=== PATIENT | female | born 1940 | race Caucasian/White ===

== ENCOUNTER 2020-01-24 00:58 | Outpatient (CLI) | payer MEDICARE, BC, SELFPAY ==
[2020-01-24 19:20] LABS: SARS-CoV-2 RNA PCR Negative
== END 2020-01-24 00:59 | disposition home or self-care (01) ==
LOC: ANHCOVIDDT 00:59
PROVIDERS: PCP Family Medicine Adolescent Medicine; Visit Provider Internal Medicine Gastroenterology
DX: Z01.812 Encounter for preprocedural laboratory examination (principal); Z20.828 Contact with and (suspected) exposure to other viral communicable diseases
CPT/HCPCS: 87635; C9803; U0003

== ENCOUNTER 2020-01-26 00:56 | Day surgery (SDC) | payer MEDICARE, BC, SELFPAY ==
[2020-01-17 09:58] VITALS: BMI 19.5
--- NOTE | 2020-01-25 15:26 | WPDANESEPP ---
Anes - Eval Pre Procedure Procedure: Operation Date: 01/26/20 08:30 Proposed Procedures p Screening Colonoscopy - Rishi Murray MD Date/Time: 01/25/20 15:26 Pre Op Diagnosis: family hx colon CA Patient Data Age: 79 Gender: F Height: 1.65 m Weight: 53.1 kg Allergies Allergy/AdvReac Type Severity Reaction Status Date / Time Penicillins Allergy Unknown Itching Verified 01/17/20 09:57 Patient hx anesthesia problems: none Family hx anesthesia problems: none PMFSH Past Medical History Medical History (Updated 01/25/20 @ 15:28 by Tamara Jacinto CRNA) Bowel obstruction Fusion of lumbar spine HLD (hyperlipidemia) HTN (hypertension) Hypothyroid Osteoarthritis Surgical History Surgical History (Updated 01/25/20 @ 15:28 by Tamara Jacinto CRNA) H/O cataract removal with insertion of prosthetic lens History of hysterectomy Hx of cholecystectomy Social History Social History Smoking status: Never smoker Alcohol intake: current Substance use: never Substance use type: does not use Gender identity (if verbalized by the patient): Female Spiritual care concerns: No Exam Day of Procedure 01/25/20 15:26
--- NOTE | 2020-01-26 07:58 | P.PNAN_ITS ---
Anes - Eval Final PreProcedure Day of Procedure 01/26/20 07:58 Patient weight: normal Heart: regular rate and rhythm Lungs: clear to auscultation and normal air movement Airway: Mallampati scale class II Neurological: alert and oriented Last oral intake: >/= 8 hours ASA classification: II Emergent: no Anesthetic plan: proceed Anesthesia type and monitoring: general GIVS Informed Consent: The patient's anesthetic plan and its attendant risks and b enefits were discussed with the patient/family/POA. Questions were solicited and answers provided to the satisfaction of the patient/family/POA.
[2020-01-26 07:59] VITALS: BP 126/73; PULSE 83; RESP 16; TEMP 36.6; O2SAT 100; BMI 19.1
[2020-01-26] MEDS: LACTATED RINGERS 1,000 ML 150 ML IV CONT (08:15)
--- NOTE | 2020-01-26 08:28 | SUR.PREOP ---
AFTER VANCOMYCIN STARTED AT 250 ML/HR LEFT FOREARM IV INFILTRATED. IV RESTARTED IN LEFT AC WITH 20G. WARM COMPRESS TO LFA.
--- NOTE | 2020-01-26 08:51 | WPDGICN ---
Assessment and Plan Assessment and plan (1) Family history of malignant neoplasm of colon in first degree relative diagnosed when younger than 60 years of age: Code(s): Z80.0 - Family history of malignant neoplasm of digestive organs Status: Acute GI Consult Note Consult date/time: 01/26/20 08:51 HPI: Anita Wallis is a 79 year old female Seen in evaluation at the request of Dr. Luciano Lopez. Patient presents for screening colonoscopy. Her current weight appetite bowel movements are normal. She denies abdominal pain. She has had no bleeding. Her weight has remained stable. Family history is significant that her son had colon cancer. Recent medical history is significant for right shoulder repair.\ Patient is a distant history of colon surgery for a bowel obstruction secondary to adhesions. Review of Systems Review of Systems: All systems reviewed & are unremarkable except as noted in HPI and below PMFSH Past Medical History Medical History Bowel obstruction Fusion of lumbar spine HLD (hyperlipidemia) HTN (hypertension) Hypothyroid Osteoarthritis Surgical History Surgical History H/O cataract removal with insertion of prosthetic lens History of hysterectomy Hx of cholecystectomy Social History Social History Smoking status: Never smoker Alcohol intake: current Alcohol use details: maybe a drink every couple of weeks Substance use: never Substance use type: does not use Living arrangements: alone Gender identity (if verbalized by the patient): Female Spiritual care concerns: No Meds Home Medications and Allergies Allergies Allergy/AdvReac Type Severity Reaction Status Date / Time Penicillins Allergy Unknown Itching Verified 01/26/20 07:58 Vital Signs Vital Signs - 24 hr 01/26/20 07:59 Temperature 97.8 F Pulse Rate 83 Respiratory Rate 16 Blood Pressure 126/73 Pulse Oximetry 100 Exam Narrative: Exam Narrative: Physical exam reveals patient to be alert. Vital signs stable. HEENT exam unremarkable. Lungs are clear to auscultation and percussion. Heart is without murmur or extra sounds. Abdominal exam bowel sounds are present soft nontender with no organomegaly. Digital external rectal exam is normal.
[2020-01-26 08:54] VITALS: BP 111/55; PULSE 80; RESP 17; O2SAT 99
[2020-01-26 09:04] VITALS: BP 123/63; PULSE 79; RESP 17; O2SAT 100
[2020-01-26 09:14] VITALS: BP 124/71; PULSE 66; RESP 17; O2SAT 100
== END 2020-01-26 09:32 | disposition home or self-care (01) ==
PROVIDERS: PCP Family Medicine Adolescent Medicine; Visit Provider Internal Medicine Gastroenterology
PROC: 0DJD8ZZ Inspection of Lower Intestinal Tract, Via Natural or Artificial Opening Endoscopic (ICD-10-PCS; CPT 45378; principal; 2020-01-26 08:30)
DX: Z12.11 Encounter for screening for malignant neoplasm of colon (principal); Z80.0 Family history of malignant neoplasm of digestive organs; K63.89 Other specified diseases of intestine; K57.30 Diverticulosis of large intestine without perforation or abscess without bleeding; K64.8 Other hemorrhoids; I10 Essential (primary) hypertension; E78.5 Hyperlipidemia, unspecified; E03.9 Hypothyroidism, unspecified
CPT/HCPCS: G0105; J2704; J7120

== ENCOUNTER → 2020-04-01 12:15 | Outpatient (CLI) | payer MEDICARE, BC, SELFPAY ==
--- NOTE | ~2020-04-01 | MM_ITS ---
EXAMINATION: MM screening [facility] BI w charlene HISTORY: Screening mammogram TECHNIQUE: Craniocaudal and mediolateral oblique 3-D tomosynthesis images were obtained and synthetic 2-D images were generated. CAD analysis was submitted and interpreted. COMPARISON: 09/08/2018, 08/31/2017, 06/26/2016 BREAST PARENCHYMAL COMPOSITION: There are scattered areas of fibroglandular density. FINDINGS: There is no evidence of suspicious mass, calcification, or architectural distortion to sugg est malignancy in either breast. There has been no suspicious interval change. IMPRESSION: 1. No mammographic evidence of malignancy. 2. Recommend routine screening mammography while the patient remains in good health. BI-RADS Category 1: Negative Reviewed, dictated and finalized at location A. OPERATIONS IMPRESSION: 1. No mammographic evidence of malignancy. 2. Recommend routine screening mammography while the patient remains in good he alth. BI-RADS Category 1: Negative
== END ==
PROVIDERS: PCP Family Medicine Adolescent Medicine; Visit Provider Obstetrics & Gynecology Gynecology
DX: Z12.31 Encounter for screening mammogram for malignant neoplasm of breast (principal)
CPT/HCPCS: 77063; 77067

== ENCOUNTER → 2021-02-07 10:49 | Outpatient (CLI) | payer MEDICARE, BC, SELFPAY ==
--- NOTE | ~2021-02-07 | DEXA_ITS ---
Bone Density Report Name: Anita Wallis Age: 80 Sex: Female Ethnicity: White Date of : 1940 Indication: postmenopausal; screening for osteoporosis; height loss; hysterectomy; Referring Provider: SHREYAS TOURE Study: Bone densitometry was performed. Exam Date: February 07, 2021 Accession number: [id number] Bone Density: Region BMD T-score Z-score Classification AP Spine (L3, L4) 1.210 1.0 3.9 Normal Femoral Neck (Left) 0.989 1.3 3.7 Normal Total Hip (Left) 0.860 -0.7 1.5 Normal Femoral Neck (Right) 0.946 0.9 3.3 Normal Total Hip (Right) 0.800 -1.2 1.0 Osteopenia Total Hip Mean 0.830 -1.0 1.3 Normal World Health Organization criteria for BMD impression classify patients as: Normal (T-score at or above -1.0), Osteopenia (T-score between -1.0 and -2.5), or Osteoporosis (T-score at or below -2.5). 10-year Fracture Risk(1): Major Osteoporotic Fracture 6.1% Hip Fracture 0.7% Reported Risk Factors: [place] (), Neck BMD=0.946, BMI=21.0 (1) FRAX(R) Version 3.08. Fracture probability calculated for an untreated patient. Fracture probability may be lower if the patient has received treatment. Previous Exams: Region Exam Age BMD T-score BMD Change BMD Change Date g/cm2 vs Baseline vs Previous AP Spine(L3, L4) 02/07/2021 80 1.210 1.0 -0.167* -0.167* 02/03/2019 78 1.378 2.5 Total Hip(Left) 02/07/2021 80 0.860 -0.7 -0.026 -0.026 02/03/2019 78 0.887 -0.5 Total Hip(Right) 02/07/2021 80 0.800 -1.2 -0.024 -0.024 02/03/2019 78 0.824 -1.0 *Denotes significance at 95% confidence level, LSC for AP Spine = 0.022 g/cm2, LSC for Total Hip = 0.027 g/cm2 Clinical Information Provided by Patient: Has used the following medications: Vitamin D, Calcium Has the following medical conditions: Hysterectomy Patient maximum height was 69 Menopause Age: 34 No regular weight bearing exercise Drinks caffeinated beverages Onset of menses at age 9 Number of children 5 Impression: The patient has low bone mass, based on the Right Total Hip T-score. The patient has an estimated ten-year risk of hip fracture of 0.7% and an estimated ten-year risk of major fracture of 6.1%, based on the WHO FRAX algorithm. The BMD for the AP Spine(L3, L4) decreased, changing by -0.167 since the last DXA exam. Discussion: BONE DENSITY IS LOW AT ONE OR MORE SKELETAL SITES. This ariana
== END ==
PROVIDERS: PCP Family Medicine Adolescent Medicine; Visit Provider Obstetrics & Gynecology Gynecology
DX: Z78.0 Asymptomatic menopausal state (principal); M85.851 Other specified disorders of bone density and structure, right thigh
CPT/HCPCS: 77080

== ENCOUNTER → 2021-05-14 14:04 | Outpatient (CLI) | payer MEDICARE, BC, SELFPAY ==
--- NOTE | ~2021-05-14 | MM_ITS ---
EXAMINATION: MM screening [facility] BI w charlene HISTORY: Screening TECHNIQUE: Craniocaudal and mediolateral oblique 3-D tomosynthesis images were obtained and synthetic 2-D images were generated. CAD analysis was submitted and interpreted. COMPARISON: Comparison to multiple prior studies sequentially, with oldest reviewed study dated 06/07. BREAST PARENCHYMAL COMPOSITION: There are scattered areas of fibroglandular density. FINDINGS: There is no evidence of suspicious mass, calcification, or architectural distortion to sugg est malignancy in either breast. There has been no suspicious interval change. IMPRESSION: 1. No mammographic evidence of malignancy. 2. Recommend routine screening mammography in one year. BI-RADS Category 1: Negative Reviewed, dictated and finalized at location A. 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
== END ==
PROVIDERS: PCP Family Medicine Adolescent Medicine; Visit Provider Obstetrics & Gynecology Gynecology
DX: Z12.31 Encounter for screening mammogram for malignant neoplasm of breast (principal)
CPT/HCPCS: 77063; 77067

== ENCOUNTER → 2021-09-16 10:06 | Outpatient (CLI) | payer MEDICARE, BC, SELFPAY ==
--- NOTE | ~2021-09-16 | XR_ITS ---
EXAMINATION: XR hip RT min 2V DATE: 09/16/2021 10:34 INDICATION: Right hip pain. TECHNIQUE: 2 views of right hip were obtained. COMPARISON: Right hip radiographs 06/01/2015 FINDINGS: Bone alignment is normal. No fracture. There is moderate right hip osteoarthritis. There is severe osteoarthritis of right sacroiliac joint. There is severe lumbar spondylosis. There is rare/endangered species specialist ior fusion in lower lumbar spine. IMPRESSION: 1. Polyarticular osteoarthritis. Reviewed, dictated and finalized at location B.
== END ==
PROVIDERS: PCP Family Medicine Adolescent Medicine; Visit Provider Physician Assistant
DX: M25.551 Pain in right hip (principal); M16.11 Unilateral primary osteoarthritis, right hip
CPT/HCPCS: 73502

== ENCOUNTER 2022-03-24 18:58 | Observation (INO) | payer MEDICARE, BC, SELFPAY ==
[2022-03-24] VITALS (11 sets, daily range): BP systolic 109–150; BP diastolic 50–77; PULSE 64–90; RESP 14–19; TEMP 37.6; O2SAT 98–100
--- NOTE | ~2022-03-24 | CT_ITS ---
EXAMINATION: CT brain wo con DATE: 03/24/2022 20:11 INDICATION: minor head injury . TECHNIQUE: Computed tomography (CT) of the head was performed without intravenous contrast. The mA wa s adjusted according to patient size. Iterative reconstruction technique was employed. The dose-lengt h product was 605.33 mGy-cm. COMPARISON: None FINDINGS: Motion limited examination. No acute intracranial hemorrhage or extra-axial fluid collection. No hydrocephalus, mass, or herniation. No acute ischemic infarct. Unremarkable dural venous sinus attenuation. No acute osseous abnormality. The aerated spaces are clear. Mild atrophy and chronic white matter change. Bilateral basal ganglia calcification Atherosclerotic i ntracranial calcification. Bilateral lens replacements. IMPRESSION: Motion limited examination. Within that constraint, no definite acute intracranial process. Reviewed, dictated and finalized at location K. CUTTER IMPRESSION: Motion limited examination. Within that constraint, no definite acute intracran ial process.
--- NOTE | ~2022-03-24 | MR_ITS ---
EXAMINATION: MR brain/brain stem wo/w con DATE: 03/25/2022 08:00 INDICATION: Altered mental status. TECHNIQUE: Magnetic resonance imaging (MRI) of the brain and brainstem was performed without and with 10 mL MultiHance intravenous contrast. COMPARISON: Brain MRI 09/19/2012, head CT 03/24/2022 FINDINGS: There is a left temporal occipital subdural hematoma with maximum thickness of 2 mm. There is no acute ischemic infarct or abnormal mass lesion. There are foci of nonspecific increased T2-weig hted signal intensity in the cerebral white matter, which is within normal limits for the patient's a ge. The ventricles are normal in size. There are likely changes of ocular lens replacement surgeries. The paranasal sinuses are clear. The mastoid air cells are normal. IMPRESSION: 1. Left temporal occipital subdural hematoma with maximum thickness of 2 mm. Reviewed, dictated and finalized at location A. 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
--- NOTE | ~2022-03-24 | XR_ITS ---
EXAM: XR finger 2nd LT min 2V DATE: 03/24/2022 19:53 HISTORY: trauma, REDNESS/ SWELLING TO DIP OF 2ND DIGIT . COMPARISON: None available. FINDINGS: Decreased mineralization. No fracture or dislocation. No lytic or blastic lesion. Severe a rthritic changes, likely secondary to erosive osteoarthritis. No periosteal change. Soft tissues with in normal limits. IMPRESSION: No acute osseous finding in the left second digit. Reviewed, dictated and finalized at location K. 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
--- NOTE | 2022-03-24 19:25 | ECG_ITS ---
Measurements Intervals Gordon Rate: 71 P: 59 WV: 161 QRS: -46 QRSD: 98 T: 49 QT: 430 QTc: 470 Interpretive Statements SINUS RHYTHM POSSIBLE LEFT ATRIAL ENLARGEMENT INCOMPLETE RIGHT BUNDLE BRANCH BLOCK LEFT ANTERIOR FASCICULAR BLOCK BASELINE ARTIFACT- I, II, V4 ABNORMAL ECG NO PREVIOUS ECG AVAILABLE FOR COMPARISON Electronically Signed On 03-25-2022 6:36:23 CELLOPHANE WORKER by Tyron Medel D.O.
[2022-03-24 19:32] LABS: Glucose Point of Care 104 mg/dl (65-105)
[2022-03-24 19:35] LABS: Basophils Percent Auto 0.3 % (0.2-1.2); Hematocrit 37.8 % (37.0-47.0); Hemoglobin 12.2 g/dL (12.0-15.0); Immature Granulocyte Absolute 0.02 K/mm3 (0.00-0.031); Immature Granulocyte Percent A 0.3 % (0-0.5); Lymphocytes Absolute Auto 0.53 K/mm3 (0.9-3.2); Lymphocytes Percent Auto 7.1 % (18.3-44.2); Mean Corpuscular HGB Conc 32.3 g/dl (32-36); Mean Corpuscular Volume 93.1 fl (80-100); Mean Platelet Volume 9.2 fl (7.4-10.4); Monocytes Absolute Auto 0.8 K/mm3 (0.1-0.6); Monocytes Percent Auto 10.8 % (2.6-8.5); Neutrophils Absolute Auto 6.1 K/mm3 (1.3-6.7); Neutrophils Percent Auto 81.5 % (45.5-73.1); Platelet Count Result 258 k/mm3 (150-375); Red Blood Count 4.06 M/mm3 (4.2-5.4); Red Cell Distribution Width 13.1 % (11.5-14.5); White Blood Count 7.4 K/mm3 (4.5-10.0)
[2022-03-24 19:44] LABS: Alanine Aminotransferase 30 U/L (6-35); Albumin Level 4.5 g/dL (3.5-5.1); Alkaline Phosphatase 42 U/L (38-126); Anion Gap 15 mmol/L (8-16); Aspartate Amino Transferase 71 U/L (14-36); Bilirubin,Total 0.6 mg/dL (0.2-1.3); Blood Urea Nitrogen 11 mg/dL (7-17); Calcium 8.8 mg/dL (8.4-10.2); Carbon Dioxide 26 mmol/L (22-30); Chloride 97 mmol/L (98-107); Estimated CRCL calculation 56 ml/min; Estimated Glomerular Filt Rate > 60; Glucose 105 mg/dL (65-110); Potassium 3.1 mmol/L (3.4-5.0); Sodium 138 mmol/L (137-145)
[2022-03-24] MEDS: SODIUM CHLORIDE 0.9% IV 1,000 ML 999 ML IV CONT (19:55)
[2022-03-24 19:59] LABS: INR 1.2; Partial Thromboplastin Time 24.7 SECONDS (22.3-36.8); Prothrombin Time 14.6 Seconds (11.1-14.7)
[2022-03-24 21:25] LABS: Influenza A QL RT-PCR Negative (Negative); Influenza B QL RT-PCR Negative (Negative); SARS-CoV-2 RNA PCR Negative
[2022-03-24 21:28] LABS: Mucus Urine Rare /lpf; WBC Urine 0-3 /hpf
[2022-03-24 21:30] LABS: Appearance Urine Clear (Clear); Bilirubin Urine Negative (Negative); Blood Urine 2+ (Negative); Color Urine Yellow (Yellow); Glucose Urine UA Negative (Negative); Ketones Urine Negative (Negative); Leukocyte Esterase Ur Negative LEU/UL (Negative); Nitrate Urine Negative (Negative); Protein Urine 1+ mg/dL (Negative); Urobilinogen Urine 0.2 mg/dL (<2.0)
[2022-03-24 21:31] LABS: Add Urine Microscopic? YES
--- NOTE | 2022-03-24 22:11 | ED.AMS ---
HPI - Altered Mental Status General Chief Complaint: Altered Mental Status Stated Complaint: confusion-LKW was last night Time Seen by Provider: 03/24/22 19:31 History of Present Illness HPI narrative: Patient is an 81-year-old female who presents ER with altered mental status. Accompanied by daughter. Daughter found patient on the floor. She has bruising to her nose and bite rm to the teeth. There have been no prodrome of fevers or chills reported. Last known well 24 hours ago. Patient cannot explain what is been going on over the last day and is oriented x2. No history of seizures. Related Data Home Medications Medication Instructions Recorded Confirmed ascorbic acid (vitamin C) 500 mg 500 mg PO DAILY 10/29/21 03/25/22 tablet,extended release aspirin 81 mg tablet,delayed 81 mg PO DAILY 10/29/21 03/25/22 release cetirizine 10 mg tablet (All Day 10 mg PO DAILY PRN Allergy Symptoms 10/29/21 03/25/22 Allergy (cetirizine)) cholecalciferol (vitamin D3) 10 10 mcg PO DAILY 10/29/21 03/25/22 mcg (400 unit) capsule (Vitamin D3) [id number]-phtfsfz-[id number]-iron 18 1 tablet PO DAILY 10/29/21 03/25/22 mg-FA 400 mcg-vit K 25 mcg tablet (One-A-Day Women's Complete) pyridoxine (vitamin B6) 100 mg 100 mg PO DAILY 10/29/21 03/25/22 tablet thiamine HCl (vitamin B1) 250 mg 250 mg PO DAILY 10/29/21 03/25/22 tablet vitamin E 200 unit capsule 200 unit PO DAILY 10/29/21 03/25/22 celecoxib 200 mg capsule 200 mg PO BID 03/25/22 03/25/22 lorazepam 0.5 mg tablet 0.5 mg PO TID PRN Anxiety 03/25/22 03/25/22 Allergies Allergy/AdvReac Type Severity Reaction Status Date / Time niacin Allergy Mild Dizziness Verified 03/24/22 19:10 [From Niaspan Extended-Release] Penicillins Allergy Unknown Itching Verified 03/24/22 19:10 Review of Systems Review of Systems: ROS unobtainable: Yes unobtainable due to mental status PMFSH Past Medical History Medical History (Updated 03/25/22 @ 07:15 by Fritz Anderson MD) Bowel obstruction Fusion of lumbar spine HTN (hypertension) Hypothyroid Personal history of transient ischemic attack (TIA), and cerebral infarction without residual deficits Surgical History Surgical History (Updated 03/04/22 @ 13:00 by Mikayla Singh MA) H/O cataract removal with insertion of prosthetic lens History of bilateral tubal ligation History of hysterectomy History of left shoulder replacement (10/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) Hx of bladder repair surgery (2013) Hx of cholecystectomy Hx of laminectomy (~1980) Fusion Family History Family History Father Diabetes mellitus Kidney disease Mother Diabetes mellitus Sibling Diabetes mellitus Son Carcinoma of colon Social History Social History (Updated 11/25/21 @ 14:01 by Susanna Wan MA) Smoking status: Never smoker Second hand tobacco smoke exposure: No Alcohol intake: current Drinks per week: 1 Alcohol use details: maybe a drink every couple of weeks Substance use: never Substance use type: does not use Lack of Transportation: No Lack of Food: Never True Current Housing: I Have Housing Concerned About Future Housing: No Difficulty Paying Gas/Electric Bills: No Difficulty Paying for Meds: No Currently Unemployed: No Education: High School Diploma/GED Difficulty w/ Childcare or Family Care: No Gender identity (if verbalized by the patient): Female Sexual Orientation (if Verbalized by the Patient): Straight or Heterosexual Spiritual care concerns: No Agree to blood products: Yes Exam Narrative: GENERAL: Well-appearing, well-nourished, and in no acute distress. HEAD: Normocephalic, atraumatic. EYES: PERRL and EOMI. ENT: Mucous membranes moist. Tongue biting noted. Bruise to the nose per CHEST: Clear to auscultation. No respiratory distress. HEART: Regular rate and rh
--- NOTE | 2022-03-24 22:36 | PM.IMHP ---
H&P: HPI History of Present Illness Date/Time: 03/24/22 22:36 Chief Complaint: Altered mental status Narrative: This is an 81-year-old female with past medical history significant for rheumatoid arthritis patient is on hydroxychloroquine, hypothyroidism. patient was brought to the emergency room by her daughter due to altered mental status daughter checks on her every day speaks on the phone with her last time she had a normal conversation was the day before in the evening. Patient has no recollection of events but she was found in her bed with confusion. She was found to have a tongue bite. Preliminary workup has been essentially nonrevealing. As per daughter patient has been in her usual state of health. Patient tested negative for influenza A and B as well as COVID-19. a CT of the head worse reported as: IMPRESSION:? Motion limited examination. Within that constraint, no definite acute intracranial process. Review of Systems Review of Systems: ROS unobtainable: Yes unobtainable due to mental status ( confusion) PMFSH Past Medical History Medical History (Updated 03/25/22 @ 03:02 by Ford Barlow MD) Bowel obstruction Fusion of lumbar spine HTN (hypertension) Hypothyroid Personal history of transient ischemic attack (TIA), and cerebral infarction without residual deficits Surgical History Surgical History (Updated 03/04/22 @ 13:00 by Mikayla Singh MA) H/O cataract removal with insertion of prosthetic lens History of bilateral tubal ligation History of hysterectomy History of left shoulder replacement (10/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) Hx of bladder repair surgery (2013) Hx of cholecystectomy Hx of laminectomy (~1980) Fusion Family History Family History Father Diabetes mellitus Kidney disease Mother Diabetes mellitus Sibling Diabetes mellitus Son Carcinoma of colon Social History Social History (Updated 11/25/21 @ 14:01 by Susanna Wan MA) Smoking status: Never smoker Second hand tobacco smoke exposure: No Alcohol intake: current Drinks per week: 1 Alcohol use details: maybe a drink every couple of weeks Substance use: never Substance use type: does not use Lack of Transportation: No Lack of Food: Never True Current Housing: I Have Housing Concerned About Future Housing: No Difficulty Paying Gas/Electric Bills: No Difficulty Paying for Meds: No Currently Unemployed: No Education: High School Diploma/GED Difficulty w/ Childcare or Family Care: No Gender identity (if verbalized by the patient): Female Sexual Orientation (if Verbalized by the Patient): Straight or Heterosexual Spiritual care concerns: No Agree to blood products: Yes Meds Home Medications and Allergies Home Medications Medication Instructions Recorded Confirmed Type atorvastatin 20 mg tablet 20 mg PO DAILY #90 tabs 09/09/21 03/25/22 Rx fenofibrate 160 mg tablet 160 mg PO DAILY #90 tabs 09/09/21 03/25/22 Rx levothyroxine 100 mcg tablet 100 mcg PO DAILY #90 tabs 09/24/21 03/25/22 Rx ascorbic acid (vitamin C) 500 mg 500 mg PO DAILY 10/29/21 03/25/22 History tablet,extended release aspirin 81 mg tablet,delayed 81 mg PO DAILY 10/29/21 03/25/22 History release cetirizine 10 mg tablet (All Day 10 mg PO DAILY PRN Allergy Symptoms 10/29/21 03/25/22 History Allergy (cetirizine)) cholecalciferol (vitamin D3) 10 10 mcg PO DAILY 10/29/21 03/25/22 History mcg (400 unit) capsule (Vitamin D3) atdpomyp-cwxilar-otmo-iron 18 1 tablet PO DAILY 10/29/21 03/25/22 History mg-FA 400 mcg-vit K 25 mcg tablet (One-A-Day Women's Complete) pyridoxine (vitamin B6) 100 mg 100 mg PO DAILY 10/29/21 03/25/22 History tablet thiamine HCl (vitamin B1) 250 mg 250 mg PO DAILY 10/29/21 03/25/22 History tablet vitamin E 200 unit capsule 200 unit PO DAILY 10/29/21 03/25/22
--- NOTE | 2022-03-24 23:58 | ADMGEN ---
This patient, Anita Wallis, was admitted to Medical Room 255-01. Patient/family oriented to hospital policies and general routines including ID bracelet, bed and alarms, visiting hours, pain management, procedures, bathroom and other care routines, personal items, smoking policy, room service/diet, and visiting hours. Information on how to activate the Rapid Response Team has been discussed. Patient/Family are encouraged to report perceived risks to care and to ask questions if they do not understand what they are told or what they should do.
[2022-03-25] VITALS (12 sets, daily range): BP systolic 110–142; BP diastolic 53–75; PULSE 67–86; RESP 16–20; TEMP 36.4–36.6; O2SAT 94–99; BMI 18.7
[2022-03-25 04:01] LABS: Amphetamine Screen Urine Negative (Negative); Barbiturate Screen Urine Negative (Negative); Benzodiazepines Screen Urine Negative (Negative); Cannabinoid Screen Urine Negative (Negative); Cocaine Screen Urine Negative (Negative); Methadone Screen Urine Negative (Negative); Opiate Screen Urine Negative (Negative); Phencyclidine Screen Urine Negative (Negative)
[2022-03-25] MEDS: LEVOTHYROXINE SODIUM 100 MCG TABLET PO (05:51)
--- NOTE | 2022-03-25 08:41 | WPDNEURCNPN ---
Assessment and Plan Assessment and plan (1) Altered mental status: Code(s): R41.82 - Altered mental status, unspecified Status: Acute (2) Seizure-like activity: Code(s): R56.9 - Unspecified convulsions Status: Acute Plan Ms. Wallis is an 81 year old female presenting due to altered mental status after being found confused by daughter with tongue bitings. Concern for possible seizure vs encephalopathy due to undetermined cause. She has also had previous smaller episodes of garbled speech that may be seizures. Infectious work-up has been negative so far. MRI brain showed left subdural hematoma, likely a result of the fall. Patient appears back to baseline mental status. - Routine EEG - Discussed risks/benefits with patient and daughter regarding the initiation of anti-seizure medication. They would like to wait until EEG is complete to decide. Consult date: 03/25/22 Time Seen: 08:41 Reason for consult: Altered mental status HPI: Anita Wallis is a 81 year old female with a history of rheumatoid arthritis and hypothyroidism presenting for altered mental status. Patient was found by her daughter on 03/24 in bed, seemingly confused. She also had bruising on the nose and bite rm on tongue. Her last known well was 24 hours ago. She was taken to [place] ED. She was AOx2 on arrival with no recollection of the previous day. Her work-up included basic labs, UA, tox screen all of which were unrevealing. CT head was limited due to motion artifact, but showed no obvious acute pathology. Patient was admitted for further work-up. She had an MRI brain this morning that showed a left temporal/occipital subdural hematoma with maximum thickness of 2mm. Patient denies any prior history of seizures. Daughter reports that patient has had episodes in the past consisting of garbled speech/confusion that lasts around 3 minutes. Review of Systems Constitutional: Constitutional: Reports no additional constitutional complaints Eyes: Eyes: Reports no additional eye complaints ENT: Reports system reviewed and no additional complaints, except as documented Cardiovascular: Cardiovascular: Reports no additional cardiovascular complaints Respiratory: Respiratory: Reports no additional respiratory complaints Gastrointestinal: Gastrointestinal: Reports no additional gastrointestinal complaints Genitourinary: Genitourinary: Reports no additional female genitourinary complaints Musculoskeletal: Musculoskeletal: Reports arthralgias Integumentary/Breasts: Skin/Breast: Reports system reviewed and no additional complaints, except as docu Neurologic: Reports as per HPI Psychiatric: Psychiatric: Reports no additional psychiatric complaints PMFSH Past Medical History Medical History Bowel obstruction Fusion of lumbar spine HTN (hypertension) Hypothyroid Personal history of transient ischemic attack (TIA), and cerebral infarction without residual deficits Surgical History Surgical History H/O cataract removal with insertion of prosthetic lens History of bilateral tubal ligation History of hysterectomy History of left shoulder replacement (10/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
[2022-03-25] MEDS: HYDROXYCHLOROQUINE SULFATE 200 MG TABLET PO ×2 (08:53→16:14)
[2022-03-25] MEDS: THIAMINE HCL 100 MG TABLET 200 MG PO (08:53)
[2022-03-25] MEDS: CHOLECALCIFEROL 400 UNITS TABLET (VIT D) PO (08:53)
[2022-03-25] MEDS: MULTIVITAMINS THERAPEUTIC TAB (*BKC) 1 TABLET PO (08:53)
[2022-03-25] MEDS: ATORVASTATIN 20 MG TABLET PO (08:53)
[2022-03-25] MEDS: ASPIRIN 81 MG ENTERIC TABLET PO (08:53)
[2022-03-25] MEDS: VITAMIN E 100 UNIT CAPSULE 200 UNIT PO (08:53)
[2022-03-25] MEDS: ASCORBIC ACID 500 MG TABLET PO (08:53)
[2022-03-25] MEDS: CELECOXIB 200 MG CAPSULE PO ×2 (08:53→16:14)
[2022-03-25] MEDS: PYRIDOXINE HCL 50 MG TABLET 100 MG PO (08:53)
[2022-03-25] MEDS: FENOFIBRATE 160 MG TABLET PO (08:54)
[2022-03-25] MEDS: THIAMINE HCL 50 MG TABLET PO (08:54)
[2022-03-25 10:24] LABS: Anion Gap 14 mmol/L (8-16); Blood Urea Nitrogen 15 mg/dL (7-17); Calcium 8.4 mg/dL (8.4-10.2); Carbon Dioxide 26 mmol/L (22-30); Chloride 98 mmol/L (98-107); Estimated CRCL calculation 57 ml/min; Estimated Glomerular Filt Rate > 60; Glucose 171 mg/dL (65-110); Potassium 2.9 mmol/L (3.4-5.0); Sodium 138 mmol/L (137-145)
--- NOTE | 2022-03-25 14:15 | PC.NURSE ---
On 03/25/22, the student, [Lashonda Mott], provided care and completed [facility] documentation on this patient. I have reviewed the student's documentation and agree with the findings.
--- NOTE | 2022-03-25 16:14 | PM.IMPN ---
Progress Note: A&P Assessment and Plan (1) Subdural hematoma: Code(s): S06.5XAA - Traumatic subdural hemorrhage with loss of consciousness status unknown, initial encounter Status: Acute Assessment and Plan: Brain MRI showed left temporal occipital subdural hematoma with maximum thickness of 2 mm Appreciate neurosurgery consultation. Awaiting recommendations Appreciate neurology consultation (2) Altered mental status: Code(s): R41.82 - Altered mental status, unspecified Status: Acute Assessment and Plan: Patient presented with confusion. Found in her bed by her family member with blood on her pillow. It sounds as though she had a fall and somehow got herself back in bed and was subsequently confused. Concern for possible seizure activity due to tongue laceration. Patient A&Ox4 today Appreciate neurology consultation Plan for EEG tomorrow Monitor mental status (3) Rheumatoid arthritis with rheumatoid factor, unspecified: Code(s): M05.9 - Rheumatoid arthritis with rheumatoid factor, unspecified Status: Chronic Assessment and Plan: Continue hydroxychloroquine (4) HTN (hypertension): Code(s): I10 - Essential (primary) hypertension Status: Acute Assessment and Plan: Blood pressure has been stable. Patient is not on any antihypertensives Monitor BP trends (5) Hypothyroid: Code(s): E03.9 - Hypothyroidism, unspecified Status: Acute Assessment and Plan: Continue levothyroxine Subjective Date/time seen: 03/25/22 16:14 Interval history: Date of service: 03/25/2022 Anita Wallis is an 81-year-old female with a history of TIA, hypertension, hypothyroidism, and lumbar spine fusion who is seen in follow-up for small occipital subdural hematoma. Patient complains of chronic low back pain today. She denies confusion. Denies headache. No dysphagia. She does note some discomfort from a bilateral tongue laceration. Appears she bit her tongue when she had a fall, the patient is unable to recall details of the fall. Her daughter is present with her at the bedside today. Patient denies shortness of breath, cough, chest pain, nausea, vomiting, fever, chills Review of Systems Review of Systems: All systems reviewed & are unremarkable except as noted in HPI and below Exam Narrative: General: Well-nourished, well-appearing 81-year-old female, sitting up in bed, comfortable, NARD Neuro: awake, alert and oriented x4, speech clear, CN II-XII intact, strength 5/5 throughout, sensation intact, no pronator drift, bilateral hydroponics grower strength equal, able to perform rapid alternating movements, able to perform finger to nose and heel to hernandez HEENMT: normocephalic, atraumatic, EOMI, sclerae anicteric Respiratory: clear to auscultation bilaterally, nonlabored breathing Cardio: regular rate, regular rhythm with S1-S2 Abdomen: nondistended, normoactive bowel sounds, soft, nontender to palpation Extremities: arthritic changes of hands, BLE no edema, erythema, or tenderness to palpation, DP pulses 2+ bilaterally Skin: Small abrasion on nose, bilateral tongue laceration, no rashes or lesions, warm and dry Psych: appropriate mood and affect, judgment and insight intact Objective Data Vital Signs Vital Signs: Vital Signs - 24 hr 03/24/22 19:12 03/24/22 19:46 03/24/22 20:49 Temperature 99.7 F H Pulse Rate 74 71 64 Respiratory Rate 16 17 18 Blood Pressure 109/68 150/77 H Pulse Oximetry 100 100 100 Oxygen Delivery Room Air 03/24/22 21:00 03/24/22 21:35 03/24/22 21:49 Temperature Pulse Rate 69 85 83 Respiratory Rate 19 18 19 Blood Pressure Pulse Oximetry 99 Oxygen Delivery 03/24/22 22:06 03/24/22 22:31 03/24/22 22:45 Temperature Pulse Rate 82 85 85 Respiratory Rate 18 17 19 Blood Pressure Pulse Oximetry 98 Oxygen Delivery 03/24/22 23:31 03/24/22 23:50 03/25/22 00:00
--- NOTE | 2022-03-25 17:19 | WPDNEUROSGCN ---
Assessment and Plan Assessment and plan (1) Subdural hematoma: Code(s): S06.5XAA - Traumatic subdural hemorrhage with loss of consciousness status unknown, initial encounter Status: Acute (2) Seizure-like activity: Code(s): R56.9 - Unspecified convulsions Status: Acute Plan Ms. Wallis is an 81-year-old female with history of RA and TIAs who apparently had a first-time seizure yesterday. She has neurologically improved and is nearly at her baseline today. She does not have any focal neurologic deficits on exam aside from disorientation of the day of the month. MRI brain shows a trace left temporo-occipital subdural fluid collection that is only seen on DWI. CT head was negative. I discussed her imaging findings with the patient and her daughter. While it is possible that this is a result of trauma preceding or as a result of a seizure, this could also be incidental. It is difficult to tell the age of the fluid collection given that it is not visible on CT or other MRI sequences. As she has had continued neurologic improvement since being found yesterday, I am not concerned that this fluid collection is expanding, and I do not feel that any other imaging is necessary at this time unless she has a change in neurologic status. I agree with Neurology's recommendation for EEG and anti-epileptic medication. The patient and her daughter are concerned about side effects from medication, particularly lethargy. We discussed a couple of medication options including keppra and vimpat, but ultimately the recommendation of which AED is prescribed will be up to Neurology. Plan: -Agree with EEG and AED per Neurology -No further imaging needed unless she has a neurologic decline Review of Systems Review of Systems: 14-point ROS was conducted and was negative aside from above PMFSH Past Medical History Medical History Bowel obstruction Fusion of lumbar spine HTN (hypertension) Hypothyroid Personal history of transient ischemic attack (TIA), and cerebral infarction without residual deficits Surgical History Surgical History H/O cataract removal with insertion of prosthetic lens History of bilateral tubal ligation History of hysterectomy History of left shoulder replacement (10/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oes not use Lack of Transportation: No Lack of Food: Never True Current Housing: I Have Housing Concerned About Future Housing: No Difficulty Paying Gas/Electric Bills: No Difficulty Paying for Meds: No Currently Unemployed: No Education: High School Diploma/GED Difficulty w/ Childcare or Family Care: No Gender identity (if verbalized by the patient): Female Sexual Orientation (if Verbalized by the Patient): Straight or Heterosexual Spiritual care concerns: No Agree to blood products: Yes Meds Home Medications and Allergies Home Medications Medication Instructions Recorded Confirmed Type atorvastatin 20 mg tablet 20 mg PO DAILY #90 tabs 09/09/21 03/25/22 Rx fenofibrate 160 mg tablet 160 mg PO DAILY #90 tabs 09/09/21 03/25/22 Rx levothyroxine 100 mcg tablet 100 mcg PO DAILY #90 tabs 09/24/21 03/25/22 Rx ascorbic acid (vitamin C) 500 mg 500
[2022-03-26] VITALS: BP 140/58; PULSE 60; PULSE 62; RESP 20; TEMP 36.6; O2SAT 100
[2022-03-26 04:00] VITALS: BP 124/67; PULSE 68; PULSE 72; RESP 20; TEMP 36.6; O2SAT 100
[2022-03-26] MEDS: LEVOTHYROXINE SODIUM 100 MCG TABLET PO (05:30)
[2022-03-26 06:50] LABS: Anion Gap 11 mmol/L (8-16); Blood Urea Nitrogen 10 mg/dL (7-17); Calcium 8.3 mg/dL (8.4-10.2); Carbon Dioxide 30 mmol/L (22-30); Chloride 103 mmol/L (98-107); Estimated CRCL calculation 49 ml/min; Estimated Glomerular Filt Rate > 60; Glucose 99 mg/dL (65-110); Potassium 3.2 mmol/L (3.4-5.0); Sodium 144 mmol/L (137-145)
[2022-03-26 06:55] LABS: Hematocrit 35.6 % (37.0-47.0); Hemoglobin 11.5 g/dL (12.0-15.0); Mean Corpuscular HGB Conc 32.3 g/dl (32-36); Mean Corpuscular Hemoglobin 30.8 pg (26-34); Mean Corpuscular Volume 95.4 fl (80-100); Mean Platelet Volume 9.8 fl (7.4-10.4); Platelet Count Result 231 k/mm3 (150-375); Red Blood Count 3.73 M/mm3 (4.2-5.4); Red Cell Distribution Width 13.1 % (11.5-14.5); White Blood Count 4.9 K/mm3 (4.5-10.0)
[2022-03-26 08:00] VITALS: BP 124/87; PULSE 61; PULSE 67; RESP 18; TEMP 36.4; O2SAT 98
[2022-03-26] MEDS: ASCORBIC ACID 500 MG TABLET PO (08:11)
[2022-03-26] MEDS: ATORVASTATIN 20 MG TABLET PO (08:11)
[2022-03-26] MEDS: ASPIRIN 81 MG ENTERIC TABLET PO (08:11)
[2022-03-26] MEDS: CHOLECALCIFEROL 400 UNITS TABLET (VIT D) PO (08:12)
[2022-03-26] MEDS: CELECOXIB 200 MG CAPSULE PO (08:12)
[2022-03-26] MEDS: FENOFIBRATE 160 MG TABLET PO (08:12)
[2022-03-26] MEDS: HYDROXYCHLOROQUINE SULFATE 200 MG TABLET PO (08:12)
[2022-03-26] MEDS: PYRIDOXINE HCL 50 MG TABLET 100 MG PO (08:13)
[2022-03-26] MEDS: THIAMINE HCL 100 MG TABLET 200 MG PO (08:13)
[2022-03-26] MEDS: MULTIVITAMINS THERAPEUTIC TAB (*BKC) 1 TABLET PO (08:13)
[2022-03-26] MEDS: VITAMIN E 100 UNIT CAPSULE 200 UNIT PO (08:14)
[2022-03-26] MEDS: THIAMINE HCL 50 MG TABLET PO (08:14)
--- NOTE | 2022-03-26 09:40 | WPDNEUROPN ---
Progress Note: A&P Assessment and Plan (1) Seizure-like activity: Code(s): R56.9 - Unspecified convulsions Status: Acute (2) Altered mental status: Code(s): R41.82 - Altered mental status, unspecified Status: Acute (3) Subdural hematoma: Code(s): S06.5XAA - Traumatic subdural hemorrhage with loss of consciousness status unknown, initial encounter Status: Acute Plan Ms. Wallis is an 81 year old female presenting due to altered mental status after being found confused by daughter with tongue biting. Concern for possible seizure especially considering abnormal EEG. She has also had previous smaller episodes of garbled speech that may have been seizures. MRI brain showed left subdural hematoma, likely a result of the fall. Patient is back to baseline mental status. - Discussed risks/benefits with patient and daughter regarding the initiation of anti-seizure medication as well as seizure precautions. They are agreeable to starting Keppra 500mg BID - Discussed no driving until seizure free for 6 months - Follow-up in [facility] in 3 months -- provided family with office number Subjective Date/time seen: 03/26/22 09:40 Interval history: Anita Wallis is a 81 year old female with a history of rheumatoid arthritis and hypothyroidism presenting for altered mental status. Patient was found by her daughter on 03/24 in bed, seemingly confused. She also had bruising on the nose and bite rm on tongue. Her last known well was 24 hours ago. She was taken to [place] ED. She was AOx2 on arrival with no recollection of the previous day. Her work-up included basic labs, UA, tox screen all of which were unrevealing. CT head was limited due to motion artifact, but showed no obvious acute pathology. Patient was admitted for further work-up. She had an MRI brain that showed a left temporal/occipital subdural hematoma with maximum thickness of 2mm. Patient denies any prior history of seizures. Daughter reports that patient has had episodes in the past consisting of garbled speech/confusion that lasts around 3 minutes. Interval history: routine EEG done today - showed epileptiform features originating from L anterior temporal lobe. Patient has no new complaints today. No seizure like activity reported. She was seen by Neurosurgery yesterday. Review of Systems Review of Systems: All systems reviewed & are unremarkable except as noted in HPI and below Exam Const: General: comfortable and no acute distress HENMT: Mouth: Yes moist mucous membranes Eyes: Pupils: Equal, round and reactive pupils present EOM: EOMs intact bilaterally Resp: Effort & Inspection: normal respiratory effort Auscultation: clear to auscultation bilaterally Cardio: Rate: regular rate Rhythm: regular rhythm GI: GI Palp: Yes Soft to palpation Auscultation: normal bowel sounds Skin: General skin exam: normal color Neuro: Other: AOx3, Pupils equal and reactive bilaterally, EOMI, face symmetric, facial sensation intact, tongue protrudes midline, palate midline. Shoulder shrug normal. Strength 5/5 throughout. Sensation intact throughout. Reflexes 2+ in biceps, 1+ patellar, and 1+ AJ bilaterally, FNF normal bilaterally. Language comprehension and fluency intact. Gait deferred. Extrem: General: normal to inspection Psych: Mental Status: mental status grossly normal Objective Data Vital Signs Vital Signs: Vital Signs - 24 hr 03/25/22 09:58 03/25/22 13:20 03/25/22 16:35 Temperature 36.6 C 36.4 C Pulse Rate 78 73 77 Respiratory Rate 16 20 16 Blood Pressure 124/57 L 127/67 141/75 H Pulse Oximetry 99 98 94 Oxygen Delivery 03/25/22 12:00 03/25/22 16:00 03/25/22 20:00 Temperature 36.6 C Pulse Rate 74 72 67 Respiratory Rate 16 Blood Pressure 129/67 Pulse Oximetry 98 Oxygen Delivery 03/25/22 20:00 03/25/22 20:00 03/26/22 00:00 Temperature 36.6 C Pulse Rate 81 62 Respiratory Rate 20 Bl
[2022-03-26 09:54] VITALS: BP 132/61; PULSE 69; RESP 20; TEMP 36.8; O2SAT 100
--- NOTE | 2022-03-26 10:13 | WPDNEUROLOGY ---
Neurology EEG Report General Information Date of Study: 03/26/22 TEST Routine EEG DIAGNOSIS Concern for seizure CONDITION OF RECORDING Awake and drowsy EEG NUMBER [id number] CLINICAL HISTORY Patient found unresponsive with tongue biting. She has no recollection of the episode. Concern for possible seizure. EEG DESCRIPTION During the awake state with eyes closed the background consists of 9 Hz posterior dominant rhythm which attenuates appropriately with eye opening. The recording is continuous. There is a well developed anterior-posterior gradient. No significant asymmetries of background activities are noted. With drowsiness there is was waxing and waning of the dominant rhythm with eventual replacement by a mixture of alpha and theta activity. Patient did not enter stage II sleep. Arousal is unremarkable. There are occasional sharp transients noted in left anterior temporal region (F7) during drowsiness. No electrographic seizures were captured. Hyperventilation and photic stimulation were not performed. IMPRESSION This is abnormal EEG due to the presence of occasional sharp transients noted in the left anterior temporal region. This is suggestive of decreased threshold to have focal seizures originating from the left anterior temporal region. Clinical correlation is recommended.
[2022-03-26] MEDS: POTASSIUM CHLORIDE 20 MEQ TABLET PO ×2 (11:52)
[2022-03-26 11:58] VITALS: BP 123/64; PULSE 61; RESP 16; TEMP 36.8; O2SAT 99
[2022-03-26 12:00] VITALS: PULSE 67
--- NOTE | 2022-03-26 13:53 | PM.DS ---
DS: Admitting Diagnosis Discharge Date 03/26/2022 Admitting Diagnosis seizure-like activity DS: Discharge Diagnosis Discharge Diagnosis (1) Subdural hematoma: Code(s): S06.5XAA - Traumatic subdural hemorrhage with loss of consciousness status unknown, initial encounter Status: Acute Assessment and Plan: Brain MRI showed left temporal occipital subdural hematoma with maximum thickness of 2 mm. Unable to determine chronicity due to decreased size and inability to visualize in other views aside from MRI. Unclear if secondary to trauma vs incidental finding. Patients neurologic status improved, therefore there was not concern for enlarging fluid collection and no further imaging or evaluation felt to be required per Neurosurgery recommendations, who saw the patient in consultation. (2) Altered mental status: Code(s): R41.82 - Altered mental status, unspecified Status: Acute Assessment and Plan: Patient presented with confusion. Found in her bed by her family member with blood on her pillow. It sounds as though she had a fall (evident by abrasion on nose) and somehow got herself back in bed and was subsequently confused. Concern for possible seizure activity due to tongue laceration. Please see below. Patient was A&Ox4 on my evaluation following the episode and was at baseline mental status. May have been due to post-ictal state. (3) Seizure-like activity: Code(s): R56.9 - Unspecified convulsions Status: Acute Assessment and Plan: Details as above. Seen in consultation by Neurology. Patient did have abnormal EEG and therefore was started on Keppra 500 mg BID. She will follow up with Neurology in 3 months as an outpatient. (4) Rheumatoid arthritis with rheumatoid factor, unspecified: Code(s): M05.9 - Rheumatoid arthritis with rheumatoid factor, unspecified Status: Chronic Assessment and Plan: Continue hydroxychloroquine (5) HTN (hypertension): Code(s): I10 - Essential (primary) hypertension Status: Acute Assessment and Plan: Blood pressure stable. Patient is not on any antihypertensives (6) Hypothyroid: Code(s): E03.9 - Hypothyroidism, unspecified Status: Acute Assessment and Plan: Continue levothyroxine DS: Summary Hospital Course Hospital Course: date of admission: 03/24/2022 date of discharge: 03/26/2022 Anita Wallis is an 81-year-old female with a history of TIA, hypertension, hypothyroidism, and lumbar spine fusion who presented to the emergency department on 03/24/2022 after she was found by her daughter to be more confused. The patient did not show up to an appointment, therefore someone called patient's daughter to go check on her. Her daughter found her in bed with blood on her pillow case and the patient was only oriented to herself. She was noted to have an abrasion on her nose and had a bit her tongue on both sides. On presentation to the ED, her vital signs were stable, she was afebrile, potassium 3.1, additional laboratory workup unremarkable, UA without concerns for infection, head CT with no definite acute intracranial process but limited due to motion artifact and finger x-ray showed no acute osseous findings of the left 2nd digit. She was admitted to the hospitalist service for further evaluation and management was seen in consultation by Neurology and Neurosurgery. Follow-up brain MRI did reveal very small subdural fluid collection concerning for hematoma. Patient was evaluated by neuro surgery for this, however was unclear if this was due to trauma or simply an incidental finding. Fortunately the patient's mental status continued to improve, therefore there was no concern for expanding collection and no further imaging felt to be required. Due to the patient's altered mental status as well as tongue biting, there was concern for seizure. she did undergo EEG during admission wh
[2022-03-26] MEDS: levETIRAcetam 500 MG TABLET PO (14:28)
== END 2022-03-26 14:54 | disposition home or self-care (01) ==
LOC: ANHED 20:53 → ANH2MED 03-25
PROVIDERS: Admitting Provider Internal Medicine; Emergency Provider Emergency Medicine; PCP Family Medicine Adolescent Medicine; Visit Provider Physician Assistant
DX: S00.33XA Contusion of nose, initial encounter (principal); R41.82 Altered mental status, unspecified; R56.9 Unspecified convulsions; M05.9 Rheumatoid arthritis with rheumatoid factor, unspecified; I10 Essential (primary) hypertension; E03.9 Hypothyroidism, unspecified; F43.22 Adjustment disorder with anxiety; F10.90 Alcohol use, unspecified, uncomplicated; Z20.822 Contact with and (suspected) exposure to COVID-19; R94.31 Abnormal electrocardiogram [ECG] [EKG]; Z86.73 Personal history of transient ischemic attack (TIA), and cerebral infarction without residual deficits; Z79.82 Long term (current) use of aspirin; Z79.899 Other long term (current) drug therapy
CPT/HCPCS: 36415; 70450; 70553; 73140; 80048; 80053; 80307; 81001; 82948; 83735; 85025; 85027; 85610; 85730; 87636; 93005; 95816; 96360; 96361; 99285; A9270; A9577; G0378; J7030

== ENCOUNTER → 2022-07-18 10:58 | Outpatient (CLI) | payer MEDICARE, BC, SELFPAY ==
--- NOTE | ~2022-07-18 | MM_ITS ---
EXAMINATION: MM screening leah BI w charlene HISTORY: Screening mammogram, family history of breast cancer in her daughter. TECHNIQUE: Craniocaudal and mediolateral oblique 3-D tomosynthesis images were obtained and synthetic 2-D images were generated. CAD analysis was submitted and interpreted. COMPARISON: 05/14/2021, 04/01/2021, 09/08/2018 BREAST PARENCHYMAL COMPOSITION: There are scattered areas of fibroglandular density. FINDINGS: No suspicious mass, calcification, or architectural distortion are identified in either musa ast to suggest malignancy. There has been no suspicious interval change. IMPRESSION: 1. No mammographic evidence of malignancy. 2. Recommend routine screening mammography while the patient remains in good health. BI-RADS Category 1: Negative Reviewed, dictated and finalized at location A. HEEL IMPRESSION: 1. No mammographic evidence of malignancy. 2. Recommend routine screening mammography while the patient remains in good he alth. BI-RADS Category 1: Negative
== END ==
PROVIDERS: PCP Family Medicine Adolescent Medicine; Visit Provider Nurse Practitioner
DX: Z12.31 Encounter for screening mammogram for malignant neoplasm of breast (principal)
CPT/HCPCS: 77063; 77067

== ENCOUNTER 2022-11-10 09:11 | Emergency (ER) | payer MEDICARE, BC, SELFPAY ==
--- NOTE | ~2022-11-10 | XR_ITS ---
EXAMINATION: XR abdomen obstructive series DATE: 11/10/2022 10:40 INDICATION: Constipation TECHNIQUE: Upright and supine views of the abdomen were obtained. COMPARISON: 05/04/2014 FINDINGS: A large volume of colonic stool is present. The bowel gas pattern is normal. There are no d ilated transabdominal free intraperitoneal gas is identified. The visualized lung bases are clear. Chen rgical clips in the right upper quadrant are likely from prior cholecystectomy. IMPRESSION: 1. Nonobstructive bowel gas pattern. 2. Constipation. Reviewed, dictated and finalized at location L.
--- NOTE | ~2022-11-10 | XR_ITS ---
EXAMINATION: XR hip LT 2V w AP pelvis DATE: 11/10/2022 10:40 INDICATION: Generalized lateral left hip pain post fall TECHNIQUE: Anteroposterior view of the pelvis and anteroposterior and frog leg lateral views of the l eft hip were obtained. COMPARISON: 05/07/2018 FINDINGS: Dextrocurvature of the lower lumbar spine presumably compensatory for a more cephalad nonvisualized l umbar levoscoliosis. Severe lumbar spondylosis. No fracture. 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 Mild left and moderate right hip osteoarthritis. IMPRESSION: 1. No acute osseous abnormality. 2. Degenerative skeletal changes, severe in the visualized lower lumbar spine and bilateral sacral il iac joints. Reviewed, dictated and finalized at location A. IMPRESSION: 1. No acute osseous abnormality. 2. Degenerative skeletal changes, severe in the visualized lower lumbar spine a nd bilateral sacral iliac joints.
--- NOTE | ~2022-11-10 | CT_ITS ---
EXAMINATION: CT abd pelvis lumbar w con DATE: 11/10/2022 12:45 INDICATION: Lower abdominal pain TECHNIQUE: Computed tomography (CT) of the abdomen, pelvis and lumbar spine was performed with 100 mL Omnipaque-350 intravenous contrast. Automated exposure control and iterative reconstruction techniqu e were employed. The dose-length product was 208.90 mGy-cm. COMPARISON: 05/03/[address] lumbar spine dated 02/27/2019 FINDINGS: Abdomen and pelvis: Mild bibasilar atelectasis. The small visualized portion of the inferior heart suggests right atrial enlargement. No pericardial or pleural effusion. Chronic dilation the common bile duct which measures 12 mm in diameter and mild central intrahepatic biliary ductal dilation likely related to prior chol ecystectomy with surgical clips the gallbladder fossa. Spleen, pancreas and bilateral adrenal glands are normal. Bilateral renal cysts the largest on the left measuring 4.1 cm. Bladder is normal. The ut erus is not identified and has likely been surgically resected. Moderate amount of gas and stool scat tered throughout the colon. There is moderate colonic diverticulosis with a sigmoid predominance. The re is no adjacent inflammatory change to suggest diverticulitis. There is a small bowel anastomosis i n the right hemipelvis. The appendix is not visualized. No pericecal inflammatory change to suggest a cute appendicitis. No free intraperitoneal gas or fluid. No pathologically enlarged abdominal or pelv ic lymphadenopathy. Severe bilateral sacroiliac osteoarthritis. Mild left and moderate right hip oste oarthritis. Lumbar spine: 6 mm anterolisthesis L2 on L3. 35 degree levoscoliosis measured between T11 and L3. Severe disc heigh t loss with developing ankylosis along the margins of the L4-L5 and L5-S1 disc spaces. Additional sev ere disc height loss with degenerative endplate changes diffusely at L2-L3, on the left at L3-L4 and on the right at T12-L1 and L1-L2. This results in approximately 20% right anterior vertebral body hei ght loss at both L1 and L2. No acute fracture. Multiple disc bulges and disc osteophyte complexes con tribute to moderate to severe central canal stenosis at L2-L3 and L3-L4 and mild central canal stenos is at T11-T12, T12-L1 and L1-L2. Multilevel bilateral severe facet osteoarthritis throughout the visu alized lumbar and lower thoracic spine. There is also multilevel bilateral neural foraminal stenosis, moderate severity on the right at T11-T12 through L3-L4 and on the left at L3-L4, mild to moderate s everity on the left at L1-L2, L2-L3 and L4-L5 and mild at the remaining bilateral lumbar levels. IMPRESSION: 1. No acute intra-abdominal/pelvic process. 2. 35 degrees lumbar levoscoliosis with severe spondylosis. Reviewed, dictated and finalized at location A.
--- NOTE | ~2022-11-10 | XR_ITS ---
EXAMINATION: XR hand LT min 3V DATE: 11/10/2022 10:41 INDICATION: Left hand pain post fall 3 days prior TECHNIQUE: Posteroanterior, oblique and lateral views of the left hand were obtained. COMPARISON: None. FINDINGS: Diffuse osteopenia. No acute fracture. Severe polyarticular erosive osteoarthritis with typical patte rn of central erosions at all of the interphalangeal joints and several associated mild subluxations or angulations. Additional advanced osteoarthritis at the first metacarpophalangeal joint with second kindra dorsal subluxation. Moderate osteoarthritis at all of the metacarpophalangeal and triscaphe joint s and at the lunocapitate articulation of the midcarpal joint. Soft tissues are unremarkable. IMPRESSION: 1. Polyarticular erosive osteoarthritis, advanced at the first carpometacarpal and all of the interph alangeal joints. No acute osseous abnormality. Reviewed, dictated and finalized at location A. IMPRESSION: 1. Polyarticular erosive osteoarthritis, advanced at the first carpometacarpal and all of the interphalangeal joints. No acute osseous abnormality.
--- NOTE | ~2022-11-10 | XR_ITS ---
EXAMINATION: XR lumbar spine 2-3V DATE: 11/10/2022 10:40 INDICATION: Low back pain TECHNIQUE: Anteroposterior and lateral views of the lumbar spine, and cone-down lateral view of the l umbosacral junction were obtained. COMPARISON: 07/19/2015 FINDINGS: There are 8 mm of anterolisthesis of L2 on L3 and 5 mm of anterolisthesis of L3 on L4. Ther e is severe loss of intervertebral disc space height throughout the lumbar spine. The vertebral body heights are maintained. Small degenerative osteophytes project from the anterior endplates of multipl e vertebral bodies. There is severe facet joint osteoarthritis throughout the lumbar spine. There are 25 degrees of lumbar levoscoliosis. Surgical clips in the right upper quadrant are likely from prior cholecystectomy. IMPRESSION: 1. Severe lumbar spondylosis without acute findings or significant interval change. Reviewed, dictated and finalized at location L. IMPRESSION: 1. Severe lumbar spondylosis without acute findings or significant interval alice nge.
[2022-11-10 09:18] VITALS: BP 153/85; PULSE 83; RESP 14; TEMP 36.4; O2SAT 99
[2022-11-10 10:17] LABS: Basophils Absolute Auto 0.1 K/mm3 (0.0-0.1); Basophils Percent Auto 0.7 % (0.2-1.2); Eosinophils Absolute Auto 0.2 K/mm3 (0-0.3); Eosinophils Percent Auto 2.5 % (0-4.4); Hematocrit 41.4 % (37.0-47.0); Hemoglobin 13.3 g/dL (12.0-15.0); Immature Granulocyte Absolute 0.05 K/mm3 (0.00-0.031); Immature Granulocyte Percent A 0.6 % (0-0.5); Lymphocytes Absolute Auto 1.91 K/mm3 (0.9-3.2); Lymphocytes Percent Auto 22.1 % (18.3-44.2); Mean Corpuscular HGB Conc 32.1 g/dl (32-36); Mean Corpuscular Hemoglobin 30.5 pg (26-34); Mean Platelet Volume 9.4 fl (7.4-10.4); Monocytes Absolute Auto 0.8 K/mm3 (0.1-0.6); Monocytes Percent Auto 8.7 % (2.6-8.5); Neutrophils Absolute Auto 5.6 K/mm3 (1.3-6.7); Neutrophils Percent Auto 65.4 % (45.5-73.1); Platelet Count Result 298 k/mm3 (150-375); Red Blood Count 4.36 M/mm3 (4.2-5.4); Red Cell Distribution Width 13.2 % (11.5-14.5); White Blood Count 8.6 K/mm3 (4.5-10.0)
[2022-11-10 10:27] LABS: Alanine Aminotransferase 31 U/L (6-35); Albumin Level 4.6 g/dL (3.5-5.1); Alkaline Phosphatase 120 U/L (38-126); Anion Gap 7 mmol/L (8-16); Aspartate Amino Transferase 53 U/L (14-36); Bilirubin,Total 0.5 mg/dL (0.2-1.3); Blood Urea Nitrogen 10 mg/dL (7-17); Carbon Dioxide 28 mmol/L (22-30); Chloride 102 mmol/L (98-107); Estimated CRCL calculation 55 ml/min; Estimated Glomerular Filt Rate > 60; Glucose 96 mg/dL (65-110); Potassium 3.9 mmol/L (3.4-5.0); Sodium 137 mmol/L (137-145)
--- NOTE | 2022-11-10 10:34 | ED.FALL ---
HPI - Fall General Chief Complaint: Fall Stated Complaint: CONSTIPATION Time Seen by Provider: 11/10/22 09:19 Source: patient, RN notes reviewed and old records reviewed Mode of arrival: ambulatory Limitations: no limitations History of Present Illness HPI Narrative: This is a 82 year old year female who presents for evaluation of left side pain and constipation. Patient states 1 weeks ago she accidentally fell onto his left hip. She reports having left hip and low back pain with her fall. She also reports having left hand swelling and bruising that has resolved. Patient did not seek evaluation after that fall. She denies hitting her head or headache. She has come to ER today because she has not had bowel movement in 3 days. She denies having the urge to have bowel movement. She denies abdominal pain, nausea or vomiting. She states she has not been eating and drinking as much due to her pain. She has been able to ambulate. She took Dulcolax this morning without a bowel movement. She denies leg weakness, numbness or tingling. Related Data Home Medications Medication Instructions Recorded Confirmed ascorbic acid (vitamin C) 500 mg 500 mg PO DAILY 10/29/21 11/02/22 tablet,extended release aspirin 81 mg tablet,delayed 81 mg PO DAILY 10/29/21 11/02/22 release cetirizine 10 mg tablet (All Day 10 mg PO DAILY PRN Allergy Symptoms 10/29/21 11/02/22 Allergy (cetirizine)) cholecalciferol (vitamin D3) 10 10 mcg PO DAILY 10/29/21 11/02/22 mcg (400 unit) capsule (Vitamin D3) uvrfswlf-bnrmtxo-qrny-iron 18 1 tablet PO DAILY 10/29/21 11/02/22 mg-FA 400 mcg-vit K 25 mcg tablet (One-A-Day Women's Complete(with vit K)) thiamine HCl (vitamin B1) 250 mg 250 mg PO DAILY 10/29/21 11/02/22 tablet vitamin E 200 unit capsule 200 unit PO DAILY 10/29/21 11/02/22 celecoxib 200 mg capsule 200 mg PO BID 06/16/22 11/02/22 cholestyramine-aspartame 4 gram PO 08/04/22 11/02/22 oral powder for susp in a packet (Prevalite) diphenoxylate-atropine 2.5 1 tablet PO TID 08/04/22 11/02/22 mg-0.025 mg tablet (Lomotil) acetaminophen 325 mg capsule 325 mg PO Q6H PRN 09/23/22 11/02/22 (Tylenol) Allergies Allergy/AdvReac Type Severity Reaction Status Date / Time niacin Allergy Mild Dizziness Verified 11/10/22 09:24 [From Niaspan Extended-Release] Penicillins Allergy Unknown Itching Verified 11/10/22 09:24 Review of Systems Constitutional: Constitutional: Denies weakness Cardiovascular: Cardiovascular: Denies syncope, Denies rapid heart rate, Denies irregular heart rhythm, Denies leg edema and Denies dyspnea Respiratory: Respiratory: Denies chest congestion, Denies hemoptysis, Denies excessive phlegm production and Denies dyspnea Gastrointestinal: Gastrointestinal: Reports no additional gastrointestinal complaints, Denies abdominal pain, Denies hematochezia, Reports constipation, Denies diarrhea and Denies vomiting Genitourinary: Genitourinary: Denies hematuria and Denies dysuria Musculoskeletal: Musculoskeletal: Reports back pain, Reports arthralgias, Denies joint swelling, Denies loss of height and Denies muscle weakness Neurologic: Denies syncope, Denies focal weakness and Denies weakness PMFSH Past Medical History Medical History Bowel obstruction Fusion of lumbar spine Hallux rigidus HTN (hypertension) Hypothyroid Personal history of transient ischemic attack (TIA), 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
[2022-11-10 10:53] VITALS: BP 153/92; PULSE 75; RESP 18; O2SAT 98
[2022-11-10 11:01] LABS: Appearance Urine Clear (Clear); Bilirubin Urine Negative (Negative); Blood Urine Negative (Negative); Color Urine Yellow (Yellow); Glucose Urine UA Negative (Negative); Ketones Urine Negative (Negative); Leukocyte Esterase Ur Negative LEU/UL (Negative); Nitrate Urine Negative (Negative); Protein Urine Negative (Negative); Specific Grav Ur 1.007 (1.001-1.035); Urobilinogen Urine 0.2 mg/dL (<2.0)
[2022-11-10 11:17] LABS: Add Urine Microscopic? NO
[2022-11-10 12:06] VITALS: BP 154/96; PULSE 82; RESP 18; O2SAT 99
[2022-11-10 14:09] VITALS: BP 142/88; PULSE 83; RESP 16; TEMP 36.8; O2SAT 96
== END 2022-11-10 14:09 | disposition home or self-care (01) ==
PROVIDERS: Emergency Provider General Practice; PCP Family Medicine Adolescent Medicine
DX: S60.012A Contusion of left thumb without damage to nail, initial encounter (principal); I10 Essential (primary) hypertension; E03.9 Hypothyroidism, unspecified; Z79.82 Long term (current) use of aspirin; Z86.73 Personal history of transient ischemic attack (TIA), and cerebral infarction without residual deficits; W19.XXXA Unspecified fall, initial encounter
CPT/HCPCS: 36415; 72100; 72132; 73130; 73502; 74019; 74177; 80053; 81003; 85025; 99284; Q9967

== ENCOUNTER 2022-11-15 10:23 | Emergency (ER) | payer MEDICARE, BC, SELFPAY ==
[2022-11-15] VITALS (10 sets, daily range): BP systolic 130–180; BP diastolic 69–95; PULSE 63–80; RESP 16–22; TEMP 36.3–36.8; O2SAT 94–100
--- NOTE | ~2022-11-15 | XR_ITS ---
EXAMINATION: XR chest 2V DATE: 11/15/2022 13:28 INDICATION: Chest pain TECHNIQUE: Frontal and lateral views of the chest are obtained COMPARISON: 09/15/2017 FINDINGS: The lungs are free of acute opacities. No pleural effusion or pneumothorax. The cardiomedia stinal silhouette is normal. There is severe thoracic spondylosis. Changes of bilateral shoulder arth roplasty are noted. IMPRESSION: 1. No acute cardiopulmonary abnormality. Reviewed, dictated and finalized at location A.
--- NOTE | ~2022-11-15 | CT_ITS ---
EXAMINATION: CT abdomen pelvis w con DATE: 11/15/2022 14:38 INDICATION: Epigastric and right upper quadrant abdominal pain and tenderness TECHNIQUE: Computed tomography (CT) of the abdomen and pelvis was performed with 100 mL Omnipaque-350 intravenous contrast. Automated exposure control and iterative reconstruction technique were employe d. The dose-length product was 195.37 mGy-cm. COMPARISON: None FINDINGS: Mild discoid atelectasis at the bilateral lung bases. The largest inferior portion of the heart demon strates right atrial enlargement. No pericardial or pleural effusion. Unchanged chronic dilation of t he common bile duct and mild intrahepatic biliary ductal dilation likely related to prior cholecystec anastacia with surgical clips at the gallbladder fossa. Spleen, pancreas and bilateral adrenal glands are normal. Bilateral renal cysts the largest on the left measuring 4.3 cm. Mild bilateral hydronephrosis without evident obstructing stone or masses. The bladder is distended but otherwise unremarkable wit h no wall thickening. The uterus is not identified and has likely been surgically resected. Large brennan unt of stool scattered throughout the colon and severe feces consistent with delayed transit in the d istal small bowel suggestive of constipation. No dilated gas-filled bowel to suggest obstruction. Sma ll bowel anastomosis in the right hemipelvis. The appendix is not visualized. No free intraperitoneal gas or fluid. No pathologically enlarged abdominal or pelvic lymphadenopathy. There are numerous div erticula along the sigmoid colon without adjacent from trace stranding to suggest diverticulitis. Lum bar levoscoliosis with severe spondylosis. Severe bilateral sacral iliac osteoarthritis and moderate bilateral hip osteoarthritis. IMPRESSION: 1. Large amount of stool in the colon and feculent material in the distal small bowel which could be seen with constipation. 2. Mild bilateral hydronephrosis without evident obstructing stone or mass which suggests either blad jhon outlet obstruction or neurogenic bladder as etiology. 3. Diverticulosis. Reviewed, dictated and finalized at location A. IMPRESSION: 1. Large amount of stool in the colon and feculent material in the distal small bowel which could be seen with constipation. 2. Mild bilateral hydronephrosis without evident obstructing stone or mass whic h suggests either bladder outlet obstruction or neurogenic bladder as etiology. 3. Diverticulosis.
--- NOTE | 2022-11-15 10:38 | ECG_ITS ---
Measurements Intervals [place] Rate: 72 P: 42 OH: 155 QRS: -46 QRSD: 92 T: 50 QT: 315 QTc: 345 Interpretive Statements SINUS RHYTHM LEFT AXIS DEVIATION POSSIBLE LEFT ATRIAL ENLARGEMENT INCOMPLETE RIGHT BUNDLE BRANCH BLOCK DELAYED PRECORDIAL R/S TRANSITION BASELINE ARTIFACT- I, II, III, AVR, AVL, AVF BORDERLINE ECG COMPARED TO ECG 03/24/2022 19:29:03 NO SIGNIFICANT CHANGES Electronically Signed On 11-15-2022 13:13:13 CDT by Tyron Medel D.O.
[2022-11-15 10:58] LABS: Basophils Percent Auto 0.8 % (0.2-1.2); Eosinophils Absolute Auto 0.2 K/mm3 (0-0.3); Eosinophils Percent Auto 3.4 % (0-4.4); Hematocrit 39.1 % (37.0-47.0); Hemoglobin 12.9 g/dL (12.0-15.0); Immature Granulocyte Absolute 0.01 K/mm3 (0.00-0.031); Immature Granulocyte Percent A 0.2 % (0-0.5); Lymphocytes Absolute Auto 1.44 K/mm3 (0.9-3.2); Lymphocytes Percent Auto 28.8 % (18.3-44.2); Mean Corpuscular Hemoglobin 30.6 pg (26-34); Mean Corpuscular Volume 92.9 fl (80-100); Mean Platelet Volume 8.9 fl (7.4-10.4); Monocytes Absolute Auto 0.5 K/mm3 (0.1-0.6); Monocytes Percent Auto 10.6 % (2.6-8.5); Neutrophils Absolute Auto 2.8 K/mm3 (1.3-6.7); Neutrophils Percent Auto 56.2 % (45.5-73.1); Platelet Count Result 266 k/mm3 (150-375); Red Blood Count 4.21 M/mm3 (4.2-5.4); Red Cell Distribution Width 13.2 % (11.5-14.5)
[2022-11-15 11:08] LABS: Prothrombin Time 13.8 Seconds (11.1-14.7)
[2022-11-15 11:09] LABS: Partial Thromboplastin Time 25.3 SECONDS (22.3-36.8)
[2022-11-15 11:10] LABS: Alanine Aminotransferase 46 U/L (6-35); Albumin Level 4.3 g/dL (3.5-5.1); Alkaline Phosphatase 140 U/L (38-126); Anion Gap 7 mmol/L (8-16); Aspartate Amino Transferase 91 U/L (14-36); Bilirubin,Total 0.5 mg/dL (0.2-1.3); Blood Urea Nitrogen 5 mg/dL (7-17); Calcium 8.8 mg/dL (8.4-10.2); Carbon Dioxide 30 mmol/L (22-30); Chloride 99 mmol/L (98-107); Estimated CRCL calculation 56 ml/min; Estimated Glomerular Filt Rate > 60; Glucose 92 mg/dL (65-110); Lipase 241 U/L (23-300); Sodium 136 mmol/L (137-145)
[2022-11-15 11:21] LABS: Troponin I 0.013 ng/mL (0.000-0.034)
--- NOTE | 2022-11-15 13:42 | ED.ABDPAIN ---
HPI - Abdominal Pain General Chief Complaint: Chest Pain Stated Complaint: chest pain Time Seen by Provider: 11/15/22 13:09 History of Present Illness HPI narrative: Patient is an 82-year-old female with a history of hyperlipidemia, hypothyroidism, seizure disorder presenting with abdominal pain. Patient states that for the last several days she has had epigastric pain that radiates into her right flank. States it is worse when she lays down. States that sometimes when she reaches over and puts pressure on her right flank it helps with the pain. States that she was recently seen here for constipation and started on stool softeners. States that she had a normal bowel movement yesterday. She denies chest pain or shortness of breath. No lightheadedness. No numbness or weakness. Denies vomiting. No dysuria or hematuria. No leg swelling. Related Data Home Medications Medication Instructions Recorded Confirmed ascorbic acid (vitamin C) 500 mg 500 mg PO DAILY 10/29/21 11/11/22 tablet,extended release aspirin 81 mg tablet,delayed 81 mg PO DAILY 10/29/21 11/11/22 release cetirizine 10 mg tablet (All Day 10 mg PO DAILY PRN Allergy Symptoms 10/29/21 11/11/22 Allergy (cetirizine)) cholecalciferol (vitamin D3) 10 10 mcg PO DAILY 10/29/21 11/11/22 mcg (400 unit) capsule (Vitamin D3) [id number]-iron 18 1 tablet PO DAILY 10/29/21 11/11/22 mg-FA 400 mcg-vit K 25 mcg tablet (One-A-Day Women's Complete(with vit K)) thiamine HCl (vitamin B1) 250 mg 250 mg PO DAILY 10/29/21 11/11/22 tablet vitamin E 200 unit capsule 200 unit PO DAILY 10/29/21 11/11/22 celecoxib 200 mg capsule 200 mg PO BID 06/16/22 11/11/22 cholestyramine-aspartame 4 gram PO 08/04/22 11/11/22 oral powder for susp in a packet (Prevalite) acetaminophen 325 mg capsule 325 mg PO Q6H PRN 09/23/22 11/11/22 (Tylenol) Allergies Allergy/AdvReac Type Severity Reaction Status Date / Time Penicillins Allergy Unknown Itching Verified 11/11/22 10:14 niacin AdvReac Mild Dizziness Verified 11/15/22 16:21 [From Niaspan Extended-Release] Review of Systems Review of Systems: All systems reviewed & are unremarkable except as noted in HPI and below PMFSH Past Medical History Medical History Bowel obstruction Constipation Fusion of lumbar spine Hallux rigidus HTN (hypertension) Hypothyroid Personal history of transient ischemic attack (TIA), 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 laminectomy (~1980) Fusion Family History Family History Father Diabetes mellitus Kidney disease Mother Diabetes mellitus Stomach cancer Brain cancer Sibling Diabetes mellitus Son Carcinoma of colon Liver cancer Daughter Breast cancer Sibling Liver cancer Lung cancer Social History Social History Smoking status: Never smoker Second hand tobacco smoke exposure: No Alcohol intake: current Drinks per week: 1 Alcohol use details: maybe a drink every couple of weeks Substance use: never Substance use type: does not use Lack of Transportation: No Lack of Food: Never True Current Housing: I Have Housing Concerned About Future Housing: No Difficulty Paying Gas/Electric Bills: No Difficulty Paying for Meds: No Currently Unemployed: No Education: Associate Degree Difficulty w/ Childcare or
[2022-11-15 14:08] LABS: Troponin I 0.016 ng/mL (0.000-0.034)
[2022-11-15] MEDS: MORPHINE SULFATE (*CRX) 2 MG/ML INJ IV PUSH (14:12)
[2022-11-15] MEDS: SODIUM CHLORIDE 0.9% IV 1,000 ML 999 ML IV CONT (14:12)
[2022-11-15] MEDS: FAMOTIDINE 20 MG/2 ML VIAL IV PUSH (14:13)
[2022-11-15 14:42] LABS: Lactic Acid Reflex 0.9 mmol/L (0.7-2.0)
--- NOTE | 2022-11-15 16:44 | PC.NURSE ---
refused lactulose. Pt reports its ready at her pharmacy and she wants to take it when shes home
== END 2022-11-15 16:48 | disposition home or self-care (01) ==
PROVIDERS: General Practice; Emergency Provider Emergency Medicine; PCP Family Medicine Adolescent Medicine
DX: R10.9 Unspecified abdominal pain (principal); K59.00 Constipation, unspecified; I10 Essential (primary) hypertension; E03.9 Hypothyroidism, unspecified; Z86.73 Personal history of transient ischemic attack (TIA), and cerebral infarction without residual deficits
CPT/HCPCS: 36415; 71046; 74177; 80053; 83605; 83690; 84484; 85025; 85610; 85730; 93005; 96361; 96374; 96375; 99284; J2270; J7030; Q9967

== ENCOUNTER → 2023-02-10 10:16 | Outpatient (CLI) | payer MEDICARE, BC, SELFPAY ==
--- NOTE | ~2023-02-10 | DEXA_ITS ---
Bone Density Report Name: AMINA NORRIS Age: 82 Sex: Female Ethnicity: White Date of : 1940 Indication: osteopenia; height loss; seizure disorder; hysterectomy; rheumatoid arthritis; postmenopausal Referring Provider: ANTHONY, JOÃO Study: Bone densitometry was performed. Exam Date: February 10, 2023 Accession number: [id number] Bone Density: Region BMD T-score Z-score Classification AP Spine (L3, L4) 1.185 0.8 3.8 Normal Femoral Neck (Left) 0.874 0.2 2.7 Normal Total Hip (Left) 0.804 -1.1 1.2 Osteopenia Femoral Neck (Right) 0.882 0.3 2.8 Normal Total Hip (Right) 0.782 -1.3 1.0 Osteopenia Total Hip Mean 0.793 -1.2 1.1 Osteopenia World Health Organization criteria for BMD impression classify patients as: Normal (T-score at or above -1.0), Osteopenia (T-score between -1.0 and -2.5), or Osteoporosis (T-score at or below -2.5). 10-year Fracture Risk(1): Major Osteoporotic Fracture 9.2% Hip Fracture 1.7% Reported Risk Factors: [place] (), Neck BMD=0.874, BMI=20.5, rheumatoid arthritis (1) FRAX(R) Version 3.08. Fracture probability calculated for an untreated patient. Fracture probability may be lower if the patient has received treatment. Previous Exams: Region Exam Age BMD T-score BMD Change BMD Change Date g/cm2 vs Baseline vs Previous AP Spine(L3, L4) 02/10/2023 82 1.185 0.8 -0.193* -0.026* 02/07/2021 80 1.210 1.0 -0.167* -0.167* 02/03/2019 78 1.378 2.5 Total Hip(Left) 02/10/2023 82 0.804 -1.1 -0.083* -0.056* 02/07/2021 80 0.860 -0.7 -0.026 -0.026 02/03/2019 78 0.887 -0.5 Total Hip(Right) 02/10/2023 82 0.782 -1.3 -0.042* -0.018 02/07/2021 80 0.800 -1.2 -0.024 -0.024 02/03/2019 78 0.824 -1.0 *Denotes significance at 95% confidence level, LSC for AP Spine = 0.022 g/cm2, LSC for Total Hip = 0.027 g/cm2 Clinical Information Provided by Patient: Has rheumatoid arthritis Has used the following medications: Vitamin D, Synthroid Has the following medical conditions: Any Seizure Disorders, Hysterectomy Patient maximum height was 69.0 Menopause Age: 34 No regular weight bearing exercise Drinks caffeinated beverages Onset of menses at age 9 Number of children 5 Impression: The patient has low bone mass, based on the Right Total Hip T-score. The patient has an liz
== END ==
PROVIDERS: PCP Family Medicine Adolescent Medicine; Visit Provider Nurse Practitioner
DX: Z78.0 Asymptomatic menopausal state (principal); M85.852 Other specified disorders of bone density and structure, left thigh; M85.851 Other specified disorders of bone density and structure, right thigh
CPT/HCPCS: 77080

== ENCOUNTER 2023-08-16 15:45 | Outpatient (CLI) | payer MEDICARE, BC, SELFPAY ==
--- NOTE | ~2023-08-16 | XR_ITS ---
Lumbosacral Spine: AP and lateral views Clinical History: Pain Findings: There is 29 degree levoscoliosis, apex at the L1-L2 disc space. There is 7 mm anterolisthes is of L2 over L3. There is severe degenerative tearing and severe facet arthropathy throughout the bautista mbar spine. The intervertebral disc spaces are preserved. The sacroiliac joints are normally outline d. Impression: Severe degenerative spondylosis, with 29 degrees levoscoliosis, and 7 mm anterolisthesis of L2 over L 3. Reviewed, dictated and finalized at location M. Impression: Severe degenerative spondylosis, with 29 degrees levoscoliosis, and 7 mm crystal listhesis of L2 over L3.
== END 2023-08-16 15:46 ==
PROVIDERS: PCP Family Medicine Adolescent Medicine; Visit Provider Family Medicine Adolescent Medicine
DX: M47.896 Other spondylosis, lumbar region (principal)
CPT/HCPCS: 72100

== ENCOUNTER 2023-08-18 15:32 | Emergency (ER) | payer MEDICARE, BC, SELFPAY ==
--- NOTE | ~2023-08-18 | CT_ITS ---
EXAMINATION: CT abdomen pelvis w con DATE: 08/18/2023 19:33 INDICATION: 3 days of abdominal pain and constipation TECHNIQUE: Computed tomography (CT) of the abdomen and pelvis was performed with 100 mL Omnipaque-350 intravenous contrast. Automated exposure control and iterative reconstruction technique were employe d. The dose-length product was 188.88 mGy-cm. COMPARISON: 11/15/2022 FINDINGS: Linear discoid atelectasis/scarring at the bilateral lung bases. Mild pectus excavatum with the xipho id process exerting mild mass effect on the anterior wall of the right heart. No pericardial or pleur al effusion. Unchanged chronic dilation of the common bile duct and mild intrahepatic biliary ductal dilation likely related to prior cholecystectomy with surgical clips the gallbladder fossa., Pancreas and bilateral adrenal glands are normal. Bilateral renal cysts the largest on the left measuring up to 3.8 cm. There is diffuse mild wall thickening of the colon most prominent at the splenic flexure c onsistent with colitis. There are multiple diverticula primarily along the sigmoid colon without foca l adjacent from trace stranding to suggest diverticulitis. Small bowel anastomosis in the right hemip cabrera. No bowel obstruction. Bladder is normal. The uterus is not identified and has likely been surg ically resected. No free intraperitoneal gas or fluid. No pathologically enlarged abdominal or pelvic lymphadenopathy. Lumbar levoscoliosis with severe spondylosis. Severe bilateral sacroiliac osteoarth ritis and moderate bilateral hip osteoarthritis. IMPRESSION: 1. Diffuse mild colonic wall thickening consistent with colitis which could be infectious, inflammato ry or ischemic in etiology. 2. Diverticulosis. Reviewed, dictated and finalized at location A. IMPRESSION: 1. Diffuse mild colonic wall thickening consistent with colitis which could be infectious, inflammatory or ischemic in etiology. 2. Diverticulosis.
[2023-08-18 15:33] VITALS: BP 157/74; PULSE 87; RESP 20; TEMP 36.5; O2SAT 91
--- NOTE | 2023-08-18 17:22 | ED.GENADULT ---
HPI - General Adult General Chief complaint: Abdominal Pain <Jeana Pineda, MANGLE FEEDER - Last Filed: 08/18/23 17:26> Stated complaint: abd pain <Jeana Lerma September, MANGLE FEEDER - Last Filed: 08/18/23 17:26> Time Seen by Provider: 08/18/23 17:23 <Jeana Lerma September, MANGLE FEEDER - Last Filed: 08/18/23 17:26> Focused HPI: Anita Wallis is an 83 y/o female who presents today with complaints of being constipated for 3 days. She states that she is having waves of lower abdominal pain since she hasn't had a BM. She has a hx of bowel blockages in the past and required surgery at least 5 years ago. GENERAL: Well-appearing, well-nourished, and in no acute distress. HEAD: Normocephalic, atraumatic. CHEST: Clear to auscultation. ?No respiratory distress. HEART: Regular rate and rhythm.? NEURO: ?Alert and oriented x3. Patient screened in triage and initial orders placed.? ?Additional care and disposition to be based upon?diagnostic testing and treatment. <Jeana Lerma September, MANGLE FEEDER - Last Filed: 08/18/23 17:26> Related Data Home medications: Home Medications Medication Instructions Recorded Confirmed aspirin 81 mg tablet,delayed 81 mg PO DAILY 10/29/21 06/01/23 release cetirizine 10 mg tablet (All Day 10 mg PO DAILY PRN Allergy Symptoms 10/29/21 06/01/23 Allergy (cetirizine)) thiamine HCl (vitamin B1) 250 mg 250 mg PO DAILY 10/29/21 06/01/23 tablet acetaminophen 325 mg capsule 325 mg PO Q6H PRN 09/23/22 06/01/23 (Tylenol) diphenoxylate-atropine 2.5 5 ml PO DAILY 12/15/22 06/01/23 mg-0.025 mg/5 mL oral liquid cholecalciferol (vitamin D3) 10 2,000 unit PO DAILY 02/02/23 06/01/23 mcg (400 unit) capsule (Vitamin D3) <Jeana Lerma September, MANGLE FEEDER - Last Filed: 08/18/23 17:26> Allergies/adverse reactions: Allergies Allergy/AdvReac Type Severity Reaction Status Date / Time Penicillins Allergy Unknown Itching Verified 06/01/23 13:02 niacin AdvReac Mild Dizziness Verified 06/01/23 13:02 [From Niaspan Extended-Release] <Jeana Lerma September, Last Filed: 08/18/23 17:26> Review of Systems Review of Systems: CONSTITUTIONAL: Denies fever GASTROINTESTINAL: Reports abdominal pain, nausea, and diarrhea. 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 <Jeana Lerma September, Last Filed: 08/18/23 17:26> Surgical History Surgical History: Surgical History H/O cataract removal with insertion of prosthetic lens History of bilateral tubal ligation History of hysterectomy 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 laminectomy (~1980) Fusion <Jeana Lerma September, Last Filed: 08/18/23 17:26> Family History Family History: Family History Father Diabetes mellitus Kidney disease Mother Diabetes mellitus Stomach cancer Brain cancer Sibling Diabetes mellitus Son Carcinoma of colon Liver cancer Daughter Breast cancer Sibling Liver cancer Lung cancer <Jeana Lerma September, Last Filed: 08/18/23 17:26> Social History Social History: Social History Smoking status: Never smoker Second hand tobacco smoke exposure: No Alcohol intake: current Drinks per w
[2023-08-18 17:35] VITALS: BP 179/75; PULSE 76; RESP 20; O2SAT 100
--- NOTE | 2023-08-18 17:37 | PC.NURSE ---
patient c/o pain across middle of abdomen and having not been able to have a bm since Wednesday. patient states that since she has been here she has been able to move her bowels 3 times that is getting progressively more lose. patient states this is abnormal for her as she usually goes three times a day. patient reports currently no pain, but states that when she has to go to the bathroom it starts between my legs and goes up my belly and lower back
[2023-08-18 17:41] VITALS: BP 179/75; PULSE 77; RESP 18; TEMP 36.7; O2SAT 100
[2023-08-18 17:51] LABS: Basophils Percent Auto 0.3 % (0.2-1.2); Eosinophils Absolute Auto 0.3 K/mm3 (0-0.3); Hematocrit 39.4 % (37.0-47.0); Hemoglobin 12.5 g/dL (12.0-15.0); Immature Granulocyte Absolute 0.03 K/mm3 (0.00-0.031); Immature Granulocyte Percent A 0.3 % (0-0.5); Lymphocytes Absolute Auto 0.84 K/mm3 (0.9-3.2); Lymphocytes Percent Auto 9.8 % (18.3-44.2); Mean Corpuscular HGB Conc 31.7 g/dl (32-36); Mean Corpuscular Hemoglobin 29.7 pg (26-34); Mean Corpuscular Volume 93.6 fl (80-100); Mean Platelet Volume 9.5 fl (7.4-10.4); Monocytes Percent Auto 11.2 % (2.6-8.5); Neutrophils Absolute Auto 6.5 K/mm3 (1.3-6.7); Neutrophils Percent Auto 75.4 % (45.5-73.1); Platelet Count Result 256 k/mm3 (150-375); Red Blood Count 4.21 M/mm3 (4.2-5.4); Red Cell Distribution Width 12.9 % (11.5-14.5); White Blood Count 8.6 K/mm3 (4.5-10.0)
[2023-08-18 18:01] VITALS: BP 183/92; PULSE 80; RESP 18; O2SAT 96
[2023-08-18 18:02] LABS: Alanine Aminotransferase 21 U/L (6-35); Albumin Level 4.5 g/dL (3.5-5.1); Alkaline Phosphatase 51 U/L (38-126); Anion Gap 6 mmol/L (4-12); Aspartate Amino Transferase 51 U/L (14-36); Bilirubin,Total 0.8 mg/dL (0.2-1.3); Blood Urea Nitrogen 14 mg/dL (7-17); Calcium 9.9 mg/dL (8.4-10.2); Carbon Dioxide 30 mmol/L (22-30); Chloride 99 mmol/L (98-107); Estimated CRCL calculation 47 ml/min; Estimated Glomerular Filt Rate > 60; Glucose 119 mg/dL (65-110); Potassium 4.3 mmol/L (3.4-5.0); Sodium 135 mmol/L (137-145)
[2023-08-18 19:19] LABS: Appearance Urine Clear (Clear); Bilirubin Urine Negative (Negative); Blood Urine Negative (Negative); Color Urine Yellow (Yellow); Glucose Urine UA Negative (Negative); Ketones Urine Negative (Negative); Leukocyte Esterase Ur Negative LEU/UL (Negative); Nitrate Urine Negative (Negative); Protein Urine Negative (Negative); Specific Grav Ur 1.008 (1.001-1.035); pH Urine 6.5 (5.0-9.0)
[2023-08-18 19:23] LABS: Add Urine Microscopic? NO
[2023-08-18 20:02] VITALS: BP 160/109; PULSE 92; RESP 20; O2SAT 100
[2023-08-18] MEDS: CIPROFLOXACIN 500 MG TAB PO (20:38)
[2023-08-18] MEDS: metroNIDAZOLE 500 MG TABLET PO (20:38)
[2023-08-18 20:48] VITALS: BP 154/98; PULSE 87; RESP 15; O2SAT 100
== END 2023-08-18 20:49 | disposition home or self-care (01) ==
PROVIDERS: Nurse Practitioner Family; Emergency Provider Physician Assistant; PCP Family Medicine Adolescent Medicine
DX: K52.9 Noninfective gastroenteritis and colitis, unspecified (principal); I10 Essential (primary) hypertension; E03.9 Hypothyroidism, unspecified; Z86.73 Personal history of transient ischemic attack (TIA), and cerebral infarction without residual deficits
CPT/HCPCS: 36415; 74177; 80053; 81003; 85025; 99284; A9270; Q9967

== ENCOUNTER 2023-09-02 15:22 | Inpatient (IN) | payer MEDICARE, BC, SELFPAY ==
--- NOTE | ~2023-09-02 | CT_ITS ---
EXAMINATION: CT abdomen pelvis w con DATE: 09/02/2023 19:13 INDICATION: Diarrhea. Right abdominal pain. TECHNIQUE: Computed tomography (CT) of the abdomen and pelvis was performed with 100 mL Omnipaque 350 intravenous contrast. Automated exposure control and iterative reconstruction technique were employe d. The dose-length product was 206.79 mGy-cm. COMPARISON: CT abdomen pelvis 08/18/23 FINDINGS: The visualized portions of the lung bases demonstrate mild atelectasis. No pleural effusion . The heart size is normal. No pericardial effusion. There is intrahepatic and extrahepatic biliary d uct dilatation. The common duct is dilated to 15 mm. There are changes of cholecystectomy. The spleen , pancreas, and adrenal glands are normal. There are cysts in the kidneys measuring up to 3.8 cm on t he left. There is diverticulosis of the colon without evidence of diverticulitis. There is wall thick ening of the transverse colon, consistent with colitis. The appendix is not visualized. There is calc ified atherosclerosis of the aorta and many of the other arteries. There are no pathologically enlarg ed lymph nodes. There is no free intraperitoneal fluid. There is severe thoracic and lumbar spondylos is. There is a stable subacute versus chronic compression fracture of T11. IMPRESSION: 1. Colitis. 2. Intrahepatic and extrahepatic biliary duct dilatation status post cholecystectomy. Reviewed, dictated and finalized at location E. IMPRESSION: 1. Colitis. 2. Intrahepatic and extrahepatic biliary duct dilatation status post cholecyste ctomy.
[2023-09-02 15:45] VITALS: BP 108/46; PULSE 89; RESP 16; TEMP 36.4; O2SAT 95
--- NOTE | 2023-09-02 15:50 | ED.NAVMDI ---
HPI - Nausea/Vomiting/Diarrhea General Chief complaint: Nausea/Vomiting/Diarrhea <Wilmer Mims, MEDICAL ADMINISTRATIVE - Last Filed: 09/22/23 09:12> Stated complaint: DIARRHEA X 3 DAYS <Wilmer Mims MEDICAL ADMINISTRATIVE - Last Filed: 09/22/23 09:12> Time Seen by Provider: 09/02/23 17:00 <Wilmer Mims MEDICAL ADMINISTRATIVE - Last Filed: 09/22/23 09:12> Focused HPI: GENERAL: Chronically illl-appearing, poorly-nourished, and in no acute distress. HEAD: Normocephalic, atraumatic. CHEST: Clear to auscultation. No respiratory distress. HEART: Regular rate and rhythm. NEURO: Alert and oriented x3. Patient screened in triage and initial orders placed. Additional care and disposition to be based upon diagnostic testing and treatment. 83-year-old female history of seizure disorder, hypothyroidism presents to the emergency room for evaluation of frequent episodes of diarrhea. Patient states that she was recently evaluated in the ER for constipation. CT showed evidence of colitis patient was placed on antibiotics and discharged home. States that she has had several episodes of nonbloody diarrhea since beginning the antibiotics. Primary care provider recommended Lomotil. Patient continues to have diarrhea despite taking the Lomotil. Denies any abdominal pain. Denies fevers. Patient is also complaining of increased weakness, dizziness dry mouth. <Wilmer Mims, MEDICAL ADMINISTRATIVE - Last Filed: 09/22/23 09:12> Focused HPI: 83-year-old female history of seizure disorder, hypothyroidism presents to the emergency room for evaluation of frequent episodes of diarrhea. Patient states that she was recently evaluated in the ER for constipation. CT showed evidence of colitis patient was placed on antibiotics and discharged home. States that she has had several episodes of nonbloody diarrhea since beginning the antibiotics. Primary care provider recommended Lomotil. Patient continues to have diarrhea despite taking the Lomotil. Denies any abdominal pain. Denies fevers. Patient is also complaining of increased weakness, dizziness dry mouth. GENERAL: Chronically illl-appearing, poorly-nourished, and in no acute distress. HEAD: Normocephalic, atraumatic. CHEST: Clear to auscultation. No respiratory distress. HEART: Regular rate and rhythm. NEURO: Alert and oriented x3. Patient screened in triage and initial orders placed. Additional care and disposition to be based upon diagnostic testing and treatment. <Marilyn Spivey PA-C - Last Filed: 09/02/23 21:21> Source: patient <Marilyn Spivey PA-C - Last Filed: 09/02/23 21:21> Mode of arrival: ambulatory <Marilyn Spivey PA-C - Last Filed: 09/02/23 21:21> Limitations: no limitations <FABY Garcia Last Filed: 09/02/23 21:21> History of Present Illness HPI Narrative: Agree with above HPI per MSE. Patient reports diarrhea has become worse since Wednesday. Family at bedside reports patient has been increasingly weak, had difficulty walking today due to weakness, difficulty caring for herself. <Marilyn Spivey PA-C - Last Filed: 09/02/23 21:21> Related Data Home medications: Home Medications Medication Instructions Recorded Confirmed aspirin 81 mg tablet,delayed 81 mg PO DAILY 10/29/21 09/02/23 release cetirizine 10 mg tablet (All Day 10 mg PO DAILY PRN Allergy Symptoms 10/29/21 09/02/23 Allergy (cetirizine)) thiamine HCl (vitamin B1) 250 mg 250 mg PO DAILY 10/29/21 09/02/23 tablet acetaminophen 325 mg capsule 325 mg PO Q6H PRN Pain 09/23/22 09/02/23 (Tylenol) cholecalciferol (vitamin D3) 10 2,000 unit PO DAILY 02/02/23 09/02/23 mcg (400 unit) capsule (Vitamin D3) <Wilmer Mims, MEDICAL ADMINISTRATIVE - Last Filed: 09/22/23 09:12> Allergies/Adverse reactions: Allergies Allergy/AdvReac Type Severity Reaction Status Date / Time Penicillins Allergy Unknown Itching Verified 09/06/23 08:59 niacin AdvReac Mild Dizziness Verified 06/01/23 13:02 [Fro
[2023-09-02 16:18] LABS: Basophils Absolute Auto 0.1 K/mm3 (0.0-0.1); Basophils Percent Auto 0.8 % (0.2-1.2); Eosinophils Percent Auto 0.2 % (0-4.4); Hematocrit 35.6 % (37.0-47.0); Hemoglobin 11.4 g/dL (12.0-15.0); Immature Granulocyte Absolute 0.11 K/mm3 (0.00-0.031); Immature Granulocyte Percent A 0.6 % (0-0.5); Lymphocytes Percent Auto 5.2 % (18.3-44.2); Mean Corpuscular Hemoglobin 29.6 pg (26-34); Mean Corpuscular Volume 92.5 fl (80-100); Mean Platelet Volume 9.1 fl (7.4-10.4); Monocytes Absolute Auto 1.4 K/mm3 (0.1-0.6); Monocytes Percent Auto 7.9 % (2.6-8.5); Neutrophils Absolute Auto 14.8 K/mm3 (1.3-6.7); Neutrophils Percent Auto 85.3 % (45.5-73.1); Platelet Count Result 333 k/mm3 (150-375); Red Blood Count 3.85 M/mm3 (4.2-5.4); Red Cell Distribution Width 12.9 % (11.5-14.5); White Blood Count 17.4 K/mm3 (4.5-10.0)
[2023-09-02 16:23] LABS: Lactic Acid Reflex 1.3 mmol/L (0.7-2.0)
[2023-09-02] MEDS: SODIUM CHLORIDE 0.9% IV 1,000 ML 999 ML IV CONT ×2 (16:37→17:48)
[2023-09-02 16:47] LABS: Alanine Aminotransferase 42 U/L (6-35); Alkaline Phosphatase 222 U/L (38-126); Anion Gap 8 mmol/L (4-12); Aspartate Amino Transferase 97 U/L (14-36); Blood Urea Nitrogen 15 mg/dL (7-17); Calcium 9.2 mg/dL (8.4-10.2); Carbon Dioxide 26 mmol/L (22-30); Chloride 99 mmol/L (98-107); Estimated CRCL calculation 47 ml/min; Estimated Glomerular Filt Rate > 60; Glucose 94 mg/dL (65-110); Potassium 3.1 mmol/L (3.4-5.0); Sodium 133 mmol/L (137-145)
[2023-09-02 17:00] VITALS: BP 108/46; PULSE 89; RESP 16; TEMP 36.4; O2SAT 95
[2023-09-02] MEDS: POTASSIUM CHLORIDE 20 MEQ ER TABLET 40 MEQ PO (17:47)
[2023-09-02] MEDS: KCL 20 MEQ/SW 100 ML 100 ML 50 MEQ IVPB (18:28)
[2023-09-02 18:40] LABS: Magnesium 1.9 mg/dL (1.6-2.3)
[2023-09-02 18:50] VITALS: BP 128/64; PULSE 110; RESP 16; O2SAT 100
[2023-09-02 19:52] LABS: Toxigenic C. Diff POSITIVE (NEGATIVE)
[2023-09-02] MEDS: VANCOMYCIN HCL 125 MG ORAL CAPSULE PO (20:24)
[2023-09-02] MEDS: levETIRAcetam 500 MG TABLET 1500 MG PO (20:24)
[2023-09-02 20:30] VITALS: BP 145/65; PULSE 91; RESP 17; O2SAT 100
[2023-09-02 20:56] LABS: Appearance Urine Clear (Clear); Bacteria Urine 4+ /hpf; Bilirubin Urine Negative (Negative); Blood Urine 2+ (Negative); Color Urine Yellow (Yellow); Glucose Urine UA Negative (Negative); Ketones Urine Trace mg/dL (Negative); Leukocyte Esterase Ur 1+ LEU/UL (Negative); Need Manual Microscopic Reviewed; Nitrate Urine Positive (Negative); Protein Urine Negative (Negative); Squamous Epithelial Cell Urine Occasional /hpf (Few); Urobilinogen Urine 0.2 mg/dL (<2.0); WBC Urine 21-50 /hpf (0-3)
[2023-09-02 20:57] LABS: Add Urine Microscopic? YES; Specific Grav Ur 1.049 (1.001-1.035)
[2023-09-02 21:28] VITALS: BP 118/59; PULSE 80; RESP 20; O2SAT 97
[2023-09-02 22:00] VITALS: BP 130/57; PULSE 44; RESP 14; TEMP 37.1; O2SAT 100
[2023-09-02 22:02] VITALS: BMI 19.2
--- NOTE | 2023-09-02 22:10 | ADMGEN ---
This patient, Anita Wallis, was admitted to 3 Med Surg Room 328-01. Patient/family oriented to hospital policies and general routines including ID bracelet, bed and alarms, visiting hours, pain management, procedures, bathroom and other care routines, personal items, smoking policy, room service/diet, and visiting hours. Information on how to activate the Rapid Response Team has been discussed. Patient/Family are encouraged to report perceived risks to care and to ask questions if they do not understand what they are told or what they should do.
--- NOTE | 2023-09-02 22:52 | PM.IMHP ---
H&P: HPI History of Present Illness Date/Time: 09/02/23 22:52 Chief Complaint: Weakness Narrative: 83-year-old female with past medical history hypertension, constipation, hypothyroidism, history of TIA, seizure disorder presenting with weakness nausea vomiting and diarrhea. She was seen on August 17 at [place] [facility] at which time she was sent home on ciprofloxacin and metronidazole for colitis. Since then she has had nonbloody diarrhea and was prescribed Lomotil by her PCP. That did not help. She complains of dizziness dry mouth and increased weakness. Upon return presentation she has elevated white count transaminitis and C diff positive along with mild hyponatremia and hypokalemia. CT abdomen pelvis with contrast demonstrating colitis and intrahepatic and extrahepatic biliary duct dilatation status post cholecystectomy. 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 laminectomy (~1980) Fusion Family History Family History Father Diabetes mellitus Kidney disease Mother Diabetes mellitus Stomach cancer Brain cancer Sibling Diabetes mellitus Son Carcinoma of colon Liver cancer Daughter Breast cancer Sibling Liver cancer Lung cancer Social History Social History Smoking status: Never smoker Second hand tobacco smoke exposure: No Alcohol intake: never Drinks per week: 1 Alcohol use details: maybe a drink every couple of weeks Substance use: never Substance use type: does not use Do You Feel Safe in your Home?: Yes Lack of Transportation: No Lack of Food: Never True Current Housing: I Have Housing Concerned About Future Housing: No Difficulty Paying Gas/Electric Bills: No Difficulty Paying for Meds: No Currently Unemployed: No Education: High School Diploma/GED Difficulty w/ Childcare or Family Care: No Living arrangements: alone Occupation/Education: retired Gender identity (if verbalized by the patient): Female Sexual Orientation (if Verbalized by the Patient): Straight or Heterosexual Spiritual care concerns: No Agree to blood products: Yes Meds Home Medications and Allergies Home Medications Medication Instructions Recorded Confirmed Type aspirin 81 mg tablet,delayed 81 mg PO DAILY 10/29/21 09/02/23 History release cetirizine 10 mg tablet (All Day 10 mg PO DAILY PRN Allergy Symptoms 10/29/21 09/02/23 History Allergy (cetirizine)) thiamine HCl (vitamin B1) 250 mg 250 mg PO DAILY 10/29/21 09/02/23 History tablet acetaminophen 325 mg capsule 325 mg PO Q6H PRN Pain 09/23/22 09/02/23 History (Tylenol) atorvastatin 20 mg tablet 20 mg PO DAILY #90 tabs 10/29/22 09/02/23 Rx fenofibrate 160 mg tablet 160 mg PO DAILY #90 tabs 12/10/22 09/02/23 Rx cholecalciferol (vitamin D3) 10 2,000 unit PO DAILY 02/02/23 09/02/23 History mcg (400 unit) capsule (Vitamin D3) celecoxib 200 mg capsule 200 mg PO BID #180 caps 03/01/23 09/02/23 Rx levothyroxine 100 mcg tablet 100 mcg PO DAILY #90
[2023-09-03] MEDS: VANCOMYCIN HCL 125 MG ORAL CAPSULE PO ×4 (00:53→17:09)
[2023-09-03] MEDS: SODIUM CHLORIDE 0.9% IV 1,000 ML 100 ML IV CONT ×2 (00:53→14:21)
[2023-09-03 05:50] VITALS: BP 122/57; PULSE 90; RESP 13; TEMP 36.7; O2SAT 93
[2023-09-03 06:37] LABS: Basophils Absolute Auto 0.1 K/mm3 (0.0-0.1); Basophils Percent Auto 0.5 % (0.2-1.2); Eosinophils Absolute Auto 0.2 K/mm3 (0-0.3); Eosinophils Percent Auto 1.6 % (0-4.4); Hematocrit 31.3 % (37.0-47.0); Hemoglobin 9.9 g/dL (12.0-15.0); Immature Granulocyte Absolute 0.09 K/mm3 (0.00-0.031); Immature Granulocyte Percent A 0.7 % (0-0.5); Lymphocytes Percent Auto 7.8 % (18.3-44.2); Mean Corpuscular HGB Conc 31.6 g/dl (32-36); Mean Corpuscular Hemoglobin 29.9 pg (26-34); Mean Corpuscular Volume 94.6 fl (80-100); Monocytes Absolute Auto 1.1 K/mm3 (0.1-0.6); Monocytes Percent Auto 8.4 % (2.6-8.5); Neutrophils Absolute Auto 10.4 K/mm3 (1.3-6.7); Platelet Count Result 271 k/mm3 (150-375); Red Blood Count 3.31 M/mm3 (4.2-5.4); Red Cell Distribution Width 12.7 % (11.5-14.5); White Blood Count 12.9 K/mm3 (4.5-10.0)
[2023-09-03 06:50] LABS: Alanine Aminotransferase 30 U/L (6-35); Albumin Level 3.3 g/dL (3.5-5.1); Alkaline Phosphatase 93 U/L (38-126); Anion Gap 12 mmol/L (4-12); Aspartate Amino Transferase 74 U/L (14-36); Bilirubin,Total 0.8 mg/dL (0.2-1.3); Blood Urea Nitrogen 11 mg/dL (7-17); Calcium 8.5 mg/dL (8.4-10.2); Carbon Dioxide 16 mmol/L (22-30); Chloride 108 mmol/L (98-107); Estimated CRCL calculation 55 ml/min; Estimated Glomerular Filt Rate > 60; Glucose 71 mg/dL (65-110); Magnesium 2.2 mg/dL (1.6-2.3); Potassium 3.8 mmol/L (3.4-5.0); Sodium 136 mmol/L (137-145)
--- NOTE | 2023-09-03 07:23 | PM.IMPN ---
Progress Note: A&P Assessment and Plan (1) C. difficile colitis: Code(s): A04.72 - Enterocolitis due to Clostridium difficile, not specified as recurrent Status: Acute Assessment and Plan: CT abdomen/pelvis: Colitis. Intrahepatic and extrahepatic biliary duct dilatation status post cholecystectomy. C dif positive. - 100 ml/hr NS - Vancomycin PO - Stool culture pending - Blood culture pending (2) Hypokalemia: Code(s): E87.6 - Hypokalemia Status: Acute Assessment and Plan: K 3.1 on admission. K was repleted and remains stable at this time. - Continue to monitor (3) Weakness: Code(s): R53.1 - Weakness Status: Acute Assessment and Plan: Patient states she has had a hard time standing. Weakness likely due to ongoing illness, decreased appetite, and poor mobility. - PT/OT ordered (4) Urinary tract infection: Code(s): N39.0 - Urinary tract infection, site not specified Status: Acute Assessment and Plan: - No urinary symptoms at this time - UA: Clear appearance, trace ketones, 2+ blood, positive nitrates, 1+ leukocytes, 3-5 RBC, 21-50 WBC, and 4+ bacteria. - UC obtained on 09/01 - No previous micro to review - started on Rocephin 1g daily 09/03/23 (5) Seizure disorder: Code(s): G40.909 - Epilepsy, unspecified, not intractable, without status epilepticus Status: Acute Assessment and Plan: Most recent seizure was May 08, 2023. She presented to her PCP for follow-up in May and a levetiracetam level was 76.7.? Patient reports she has been taking the same dose of Keppra 1500 mg p.o. b.i.d. since then.?Unknown if this was a titrated down dose. She is unsure what happens after that level was drawn and I am unable to find a follow-up visit.? - Seizure precautions initiated - Keppra resumed and will reevaluated keppra level (6) Hypothyroid: Code(s): E03.9 - Hypothyroidism, unspecified Status: Acute Assessment and Plan: Continue home levothyroxine 100 mcg. - TSH 0.608 (7) Moderate malnutrition: Code(s): E44.0 - Moderate protein-calorie malnutrition Status: Acute Assessment and Plan: Evaluated by nutrition. Screen MST 2, 2-13 lb weight loss. C diff +, c/o diarrhea and weakness after eating. - Supplement Time Spent With Patient Time with patient: 25 - 35 minutes Subjective Date/time seen: 09/03/23 07:23 Interval history: 83-year-old female with past medical history hypertension, constipation, hypothyroidism, history of TIA, seizure disorder presenting with weakness nausea vomiting and diarrhea.?? Patient is pleasant lying comfortably in bed with daughter at bedside. She continues to have diarrhea, but states it is less watery now. She notes a decrease in appetite and reports weight loss of 10 lbs. She states that she only eats about half portions of her meals and is uninterested in food. She notes increased weakness. Discussed with patient that the increased weakness is likely due to the ongoing illness, immobility, and decreased appetite. PT/OT is ordered. Patient was found to have a UTI on urinalysis with culture pending. She was started on rocephin at that time. She denies pain with urination, burning sensation, and increased frequency. She denies chest pain, shortness of breath, nausea/vomiting. Review of Systems Review of Systems: All systems reviewed & are unremarkable except as noted in HPI and below Exam Narrative: AF HR 90 RR 18 SpO2 96 BP 148/74 General: female in no acute respiratory distress who is nontoxic appearing, lying semi recumbent in bed. HEENT: Normocephalic. Atraumatic. Pupils equal round reactive to light. Extraocular movement intact. Sclera clear and anicteric. No facial asymmetry. Neck: Neck was supple. No dominant adenopathy, thyromegaly or masses. 2+ carotid upstrokes without bruits. Chest: Lungs are clear to auscultation bilaterally. No wheezes or crackles. C
[2023-09-03] MEDS: LEVOTHYROXINE SODIUM 100 MCG TABLET PO (08:18)
[2023-09-03 08:35] LABS: Thyroid Stimulating Hormone Reflex 0.608 uIU/mL (0.465-4.68)
[2023-09-03] MEDS: FENOFIBRATE 160 MG TABLET PO (09:04)
[2023-09-03] MEDS: THIAMINE HCL 100 MG TABLET 200 MG PO (09:04)
[2023-09-03] MEDS: ATORVASTATIN 20 MG TABLET PO (09:05)
[2023-09-03] MEDS: ASPIRIN 81 MG ENTERIC TABLET PO (09:05)
[2023-09-03] MEDS: CHOLECALCIFEROL 1,000 UNITS TABLET 2000 UNITS PO (09:05)
[2023-09-03] MEDS: THIAMINE HCL 50 MG TABLET PO (09:07)
[2023-09-03 13:02] VITALS: BMI 19.2
[2023-09-03 14:00] VITALS: BP 146/74; PULSE 90; RESP 18; TEMP 36.8; O2SAT 96
[2023-09-03] MEDS: levETIRAcetam 500 MG TABLET 1500 MG PO (17:08)
[2023-09-03 20:50] VITALS: BP 137/66; PULSE 84; RESP 22; TEMP 37.2; O2SAT 97
[2023-09-04] MEDS: VANCOMYCIN HCL 125 MG ORAL CAPSULE PO ×4 (01:31→18:04)
[2023-09-04] MEDS: SODIUM CHLORIDE 0.9% IV 1,000 ML 100 ML IV CONT ×2 (01:35→17:10)
[2023-09-04 05:35] VITALS: BP 128/51; PULSE 68; RESP 20; TEMP 36.9; O2SAT 99
[2023-09-04 05:53] LABS: Basophils Absolute Auto 0.1 K/mm3 (0.0-0.1); Basophils Percent Auto 0.7 % (0.2-1.2); Eosinophils Absolute Auto 0.2 K/mm3 (0-0.3); Eosinophils Percent Auto 2.2 % (0-4.4); Hematocrit 30.8 % (37.0-47.0); Hemoglobin 9.9 g/dL (12.0-15.0); Immature Granulocyte Absolute 0.06 K/mm3 (0.00-0.031); Immature Granulocyte Percent A 0.9 % (0-0.5); Lymphocytes Absolute Auto 0.94 K/mm3 (0.9-3.2); Lymphocytes Percent Auto 13.8 % (18.3-44.2); Mean Corpuscular HGB Conc 32.1 g/dl (32-36); Mean Corpuscular Hemoglobin 29.8 pg (26-34); Mean Corpuscular Volume 92.8 fl (80-100); Monocytes Absolute Auto 0.9 K/mm3 (0.1-0.6); Monocytes Percent Auto 12.7 % (2.6-8.5); Neutrophils Absolute Auto 4.7 K/mm3 (1.3-6.7); Neutrophils Percent Auto 69.7 % (45.5-73.1); Platelet Count Result 251 k/mm3 (150-375); Red Blood Count 3.32 M/mm3 (4.2-5.4); Red Cell Distribution Width 12.6 % (11.5-14.5); White Blood Count 6.8 K/mm3 (4.5-10.0)
[2023-09-04 06:09] LABS: Anion Gap 0 mmol/L (4-12); Blood Urea Nitrogen 4 mg/dL (7-17); Calcium 8.2 mg/dL (8.4-10.2); Carbon Dioxide 30 mmol/L (22-30); Chloride 108 mmol/L (98-107); Estimated CRCL calculation 67 ml/min; Estimated Glomerular Filt Rate > 60; Glucose 111 mg/dL (65-110); Potassium 3.2 mmol/L (3.4-5.0); Sodium 138 mmol/L (137-145)
[2023-09-04] MEDS: LEVOTHYROXINE SODIUM 100 MCG TABLET PO (06:21)
[2023-09-04] MEDS: levETIRAcetam 500 MG TABLET 1500 MG PO (06:50)
--- NOTE | 2023-09-04 08:58 | PM.IMPN ---
Progress Note: A&P Assessment and Plan (1) C. difficile colitis: Code(s): A04.72 - Enterocolitis due to Clostridium difficile, not specified as recurrent Status: Acute Assessment and Plan: CT abdomen/pelvis: Colitis. Intrahepatic and extrahepatic biliary duct dilatation status post cholecystectomy. C dif positive. - 100 ml/hr NS - Vancomycin PO - Stool culture: Ecoli, shiga toxins, and campylobacter negative, salmonella/shigella pending - Blood culture NGTD (2) Hypokalemia: Code(s): E87.6 - Hypokalemia Status: Acute Assessment and Plan: K 3.2 on admission. K was repleted and remains stable at this time. - Continue to monitor (3) Weakness: Code(s): R53.1 - Weakness Status: Acute Assessment and Plan: Patient states she has had a hard time standing. Weakness likely due to ongoing illness, decreased appetite, and poor mobility. Spoke with daughter and patient about SNF placement at discharge. Daughter states that they plan to go to a SNF and she is waiting on a list from care coordination, however she is concerned about observation status because medicare will not cover and unable to private pay. - PT/OT - Per PT/OT patient would benefit from SNF at discharge for further therapy. (4) Urinary tract infection: Code(s): N39.0 - Urinary tract infection, site not specified Status: Acute Assessment and Plan: - No urinary symptoms at this time - UA: Clear appearance, trace ketones, 2+ blood, positive nitrates, 1+ leukocytes, 3-5 RBC, 21-50 WBC, and 4+ bacteria. - UC obtained on 09/01: Ecoli positive. Sensitivities not resulted yet. - No previous micro to review - started on Rocephin 1g daily 09/03/23 (5) Seizure disorder: Code(s): G40.909 - Epilepsy, unspecified, not intractable, without status epilepticus Status: Acute Assessment and Plan: Most recent seizure was May 08, 2023. She presented to her PCP for follow-up in May and a levetiracetam level was 76.7.? Patient reports she has been taking the same dose of Keppra 1500 mg p.o. b.i.d. since then.?Unknown if this was a titrated down dose. She is unsure what happens after that level was drawn and I am unable to find a follow-up visit.? - Seizure precautions initiated - Keppra level 57.7 - Keppra held due to supratherapeutic level (6) Hypothyroid: Code(s): E03.9 - Hypothyroidism, unspecified Status: Acute Assessment and Plan: Continue home levothyroxine 100 mcg. - TSH 0.608 (7) Moderate malnutrition: Code(s): E44.0 - Moderate protein-calorie malnutrition Status: Acute Assessment and Plan: Evaluated by nutrition. Screen MST 2, 2-13 lb weight loss. C diff +, c/o diarrhea and weakness after eating. - Supplement Time Spent With Patient Time with patient: 25 - 35 minutes Subjective Date/time seen: 09/04/23 08:58 Interval history: 83-year-old female with past medical history hypertension, constipation, hypothyroidism, history of TIA, seizure disorder presenting with weakness nausea vomiting and diarrhea.?? Patient is pleasant lying in bed with daughter at bedside. She continues to have watery diarrhea, but is tolerating a small diet. She states she gets full so quickly then has to use the restroom. Stool culture still pending. Her UTI culture reveals ecoli, but sensitivities are not back yet. She remains on rocephin. She has no urinary symptoms. She has no chest pain, shortness of breath, nausea/vomiting, diarrhea. PT/OT recommending SNF. Spoke with daughter and patient about SNF placement at discharge. Daughter states that they plan to go to a SNF and she is waiting on a list from care coordination, however she is concerned about observation status because medicare will not cover and unable to private pay. Review of Systems Review of Systems: All systems reviewed & are unremarkable except as noted in HPI and below Exam Narrative: AF H
[2023-09-04 09:00] VITALS: O2SAT 100
[2023-09-04] MEDS: THIAMINE HCL 100 MG TABLET 200 MG PO (09:00)
[2023-09-04] MEDS: ATORVASTATIN 20 MG TABLET PO (09:00)
[2023-09-04] MEDS: CHOLECALCIFEROL 1,000 UNITS TABLET 2000 UNITS PO (09:00)
[2023-09-04] MEDS: ASPIRIN 81 MG ENTERIC TABLET PO (09:00)
[2023-09-04] MEDS: THIAMINE HCL 50 MG TABLET PO (09:01)
[2023-09-04] MEDS: FENOFIBRATE 160 MG TABLET PO (09:01)
[2023-09-04] MEDS: POTASSIUM CHLORIDE 20 MEQ ER TABLET PO (09:10)
[2023-09-04 11:03] LABS: Levetiracetam Keppra 57.7 mcg/mL (6.0-46.0)
[2023-09-04 14:00] VITALS: BP 151/71; PULSE 99; RESP 20; TEMP 37.7; O2SAT 99
[2023-09-04 22:00] VITALS: BP 143/75; PULSE 81; RESP 18; TEMP 36.6; O2SAT 97
[2023-09-05] MEDS: VANCOMYCIN HCL 125 MG ORAL CAPSULE PO ×5 (00:03→19:44)
[2023-09-05] MEDS: ACETAMINOPHEN 325 MG TABLET 650 MG PO ×2 (01:06→19:43)
[2023-09-05] MEDS: SODIUM CHLORIDE 0.9% IV 1,000 ML 100 ML IV CONT ×2 (05:54→19:42)
[2023-09-05 06:00] VITALS: BP 137/78; PULSE 67; RESP 16; TEMP 36.8; O2SAT 97
[2023-09-05 06:20] LABS: Basophils Absolute Auto 0.1 K/mm3 (0.0-0.1); Basophils Percent Auto 1.1 % (0.2-1.2); Eosinophils Absolute Auto 0.2 K/mm3 (0-0.3); Eosinophils Percent Auto 3.5 % (0-4.4); Hematocrit 31.2 % (37.0-47.0); Hemoglobin 10.1 g/dL (12.0-15.0); Immature Granulocyte Absolute 0.05 K/mm3 (0.00-0.031); Immature Granulocyte Percent A 0.9 % (0-0.5); Lymphocytes Absolute Auto 1.16 K/mm3 (0.9-3.2); Lymphocytes Percent Auto 20.4 % (18.3-44.2); Mean Corpuscular HGB Conc 32.4 g/dl (32-36); Mean Corpuscular Hemoglobin 29.7 pg (26-34); Mean Corpuscular Volume 91.8 fl (80-100); Mean Platelet Volume 9.3 fl (7.4-10.4); Monocytes Absolute Auto 0.8 K/mm3 (0.1-0.6); Monocytes Percent Auto 14.6 % (2.6-8.5); Neutrophils Absolute Auto 3.4 K/mm3 (1.3-6.7); Neutrophils Percent Auto 59.5 % (45.5-73.1); Platelet Count Result 268 k/mm3 (150-375); Red Cell Distribution Width 12.4 % (11.5-14.5); White Blood Count 5.7 K/mm3 (4.5-10.0)
[2023-09-05] MEDS: LEVOTHYROXINE SODIUM 100 MCG TABLET PO (06:41)
[2023-09-05 06:43] LABS: Anion Gap 2 mmol/L (4-12); Blood Urea Nitrogen 2 mg/dL (7-17); Calcium 8.3 mg/dL (8.4-10.2); Carbon Dioxide 31 mmol/L (22-30); Chloride 107 mmol/L (98-107); Estimated CRCL calculation 86 ml/min; Estimated Glomerular Filt Rate > 60; Glucose 103 mg/dL (65-110); Potassium 2.5 mmol/L (3.4-5.0); Sodium 140 mmol/L (137-145)
--- NOTE | 2023-09-05 07:38 | PC.NURSE ---
shift mgr RN states she notified night time MD of critical potassium via voice mail. no response or new orders. This RN called day MD. MD states she will put orders in now.
--- NOTE | 2023-09-05 07:40 | PM.IMPN ---
Progress Note: A&P Assessment and Plan (1) C. difficile colitis: Code(s): A04.72 - Enterocolitis due to Clostridium difficile, not specified as recurrent Status: Acute Assessment and Plan: CT abdomen/pelvis: Colitis. Intrahepatic and extrahepatic biliary duct dilatation status post cholecystectomy. C dif positive. - 100 ml/hr NS - Vancomycin PO - Stool culture: Ecoli, shiga toxins, and campylobacter negative, salmonella/shigella pending - Blood culture NGTD (2) Hypokalemia: Code(s): E87.6 - Hypokalemia Status: Acute Assessment and Plan: K 2.5 today. K was repleted and back within normal limits. - Continue to monitor (3) Weakness: Code(s): R53.1 - Weakness Status: Acute Assessment and Plan: Patient states she has had a hard time standing. Weakness likely due to ongoing illness, decreased appetite, and poor mobility. Spoke with daughter and patient about SNF placement at discharge. Daughter states that they plan to go to a SNF and she is waiting on a list from care coordination, however she is concerned about observation status because medicare will not cover and unable to private pay. - PT/OT - Per PT/OT patient would benefit from SNF at discharge for further therapy. (4) Urinary tract infection: Code(s): N39.0 - Urinary tract infection, site not specified Status: Acute Assessment and Plan: - No urinary symptoms at this time - UA: Clear appearance, trace ketones, 2+ blood, positive nitrates, 1+ leukocytes, 3-5 RBC, 21-50 WBC, and 4+ bacteria. - UC obtained on 09/01: Ecoli positive. Sensitivities not resulted yet. - No previous micro to review - started on Rocephin 1g daily 09/03/23 (5) Seizure disorder: Code(s): G40.909 - Epilepsy, unspecified, not intractable, without status epilepticus Status: Acute Assessment and Plan: Most recent seizure was May 08, 2023. She presented to her PCP for follow-up in May and a levetiracetam level was 76.7.? Patient reports she has been taking the same dose of Keppra 1500 mg p.o. b.i.d. since then.?Unknown if this was a titrated down dose. She is unsure what happens after that level was drawn and I am unable to find a follow-up visit.?Per daughter patient has been more agitated and confused as of late, possibly due to elevated keppra levels. - Seizure precautions initiated - Keppra level 57.7 - Keppra held due to supratherapeutic level. Spoke with neurology Dr. Jones and will continue to hold keppra with plan to recheck level in the am. (6) Hypothyroid: Code(s): E03.9 - Hypothyroidism, unspecified Status: Acute Assessment and Plan: Continue home levothyroxine 100 mcg. - TSH 0.608 (7) Moderate malnutrition: Code(s): E44.0 - Moderate protein-calorie malnutrition Status: Acute Assessment and Plan: Evaluated by nutrition. Screen MST 2, 2-13 lb weight loss. C diff +, c/o diarrhea and weakness after eating. - Supplement Time Spent With Patient Time with patient: 25 - 35 minutes Subjective Date/time seen: 09/05/23 07:40 Interval history: 83-year-old female with past medical history hypertension, constipation, hypothyroidism, history of TIA, seizure disorder presenting with weakness nausea vomiting and diarrhea.?? Patient is pleasant lying comfortably in bed. She is no longer having diarrhea and is tolerating diet okay. She denies nausea/vomiting. Spoke with neurology Dr. Jones in regards to patients keppra medication. He states that the medication can continue to be held due to supratherapeutic level on 09/01. Will obtain a new keppra level in the am and adjust keppra dosing as appropriate. Patient remains on seizure precautions. She denies chest pain, shortness of breath, and changes in urination. Review of Systems Review of Systems: All systems reviewed & are unremarkable except as noted in HPI and below Exam Narrative: AF HR 67 RR 18 SpO2
[2023-09-05 08:35] VITALS: O2SAT 98
[2023-09-05] MEDS: CHOLECALCIFEROL 1,000 UNITS TABLET 2000 UNITS PO (08:35)
[2023-09-05] MEDS: ASPIRIN 81 MG ENTERIC TABLET PO (08:36)
[2023-09-05] MEDS: FENOFIBRATE 160 MG TABLET PO (08:36)
[2023-09-05] MEDS: THIAMINE HCL 50 MG TABLET PO (08:36)
[2023-09-05] MEDS: ATORVASTATIN 20 MG TABLET PO (08:36)
[2023-09-05] MEDS: THIAMINE HCL 100 MG TABLET 200 MG PO (08:36)
[2023-09-05] MEDS: POTASSIUM CHLORIDE 20 MEQ ER TABLET 40 MEQ PO (08:43)
[2023-09-05] MEDS: POTASSIUM CHLORIDE INJ 40 MEQ in SODIUM CHLORIDE 0.9% IV 500 ML 130 MEQ IVPB (09:42)
[2023-09-05 14:00] VITALS: BP 155/72; PULSE 67; RESP 18; TEMP 36.4; O2SAT 97
[2023-09-05 15:16] LABS: Potassium 3.4 mmol/L (3.4-5.0)
[2023-09-05 20:54] VITALS: BP 154/96; PULSE 73; RESP 18; TEMP 36.4; O2SAT 97
--- NOTE | 2023-09-05 21:27 | PC.NURSE ---
Pt stated that she has not slept in days. Pt stated that she does not want to be awakened at midnight to take the PO vancomycin that is scheduled. Pt requested to be given the med now so as not to be woke up.
[2023-09-06 05:04] VITALS: BP 162/67; PULSE 66; RESP 16; TEMP 36.3; O2SAT 99
[2023-09-06] MEDS: VANCOMYCIN HCL 125 MG ORAL CAPSULE PO ×3 (05:33→17:19)
[2023-09-06] MEDS: SODIUM CHLORIDE 0.9% IV 1,000 ML 100 ML IV CONT (05:33)
[2023-09-06] MEDS: LEVOTHYROXINE SODIUM 100 MCG TABLET PO (05:33)
[2023-09-06 05:56] LABS: Basophils Absolute Auto 0.1 K/mm3 (0.0-0.1); Basophils Percent Auto 1.5 % (0.2-1.2); Eosinophils Absolute Auto 0.2 K/mm3 (0-0.3); Eosinophils Percent Auto 5.6 % (0-4.4); Hematocrit 32.6 % (37.0-47.0); Hemoglobin 10.3 g/dL (12.0-15.0); Immature Granulocyte Absolute 0.05 K/mm3 (0.00-0.031); Immature Granulocyte Percent A 1.2 % (0-0.5); Lymphocytes Absolute Auto 1.33 K/mm3 (0.9-3.2); Lymphocytes Percent Auto 32.4 % (18.3-44.2); Mean Corpuscular HGB Conc 31.6 g/dl (32-36); Mean Corpuscular Hemoglobin 29.6 pg (26-34); Mean Corpuscular Volume 93.7 fl (80-100); Mean Platelet Volume 9.1 fl (7.4-10.4); Monocytes Absolute Auto 0.6 K/mm3 (0.1-0.6); Monocytes Percent Auto 15.1 % (2.6-8.5); Neutrophils Absolute Auto 1.8 K/mm3 (1.3-6.7); Neutrophils Percent Auto 44.2 % (45.5-73.1); Platelet Count Result 278 k/mm3 (150-375); Red Blood Count 3.48 M/mm3 (4.2-5.4); Red Cell Distribution Width 12.5 % (11.5-14.5); White Blood Count 4.1 K/mm3 (4.5-10.0)
[2023-09-06 06:07] LABS: Anion Gap 4 mmol/L (4-12); Blood Urea Nitrogen 3 mg/dL (7-17); Calcium 8.9 mg/dL (8.4-10.2); Carbon Dioxide 27 mmol/L (22-30); Chloride 109 mmol/L (98-107); Estimated CRCL calculation 67 ml/min; Estimated Glomerular Filt Rate > 60; Glucose 102 mg/dL (65-110); Potassium 3.2 mmol/L (3.4-5.0); Sodium 140 mmol/L (137-145)
[2023-09-06 07:37] LABS: Platelet Estimate Adequate (Adequate)
[2023-09-06 07:38] LABS: Anisocytosis 1+; Atypical Lymphocytes Present; Schistocytes None Seen
[2023-09-06] MEDS: ATORVASTATIN 20 MG TABLET PO (08:39)
[2023-09-06] MEDS: ASPIRIN 81 MG ENTERIC TABLET PO (08:39)
[2023-09-06] MEDS: THIAMINE HCL 50 MG TABLET PO (08:39)
[2023-09-06] MEDS: FENOFIBRATE 160 MG TABLET PO (08:39)
[2023-09-06] MEDS: THIAMINE HCL 100 MG TABLET 200 MG PO (08:39)
[2023-09-06] MEDS: ENOXAPARIN 40 MG/0.4 ML SYRINGE SUB-Q (08:40)
[2023-09-06] MEDS: CHOLECALCIFEROL 1,000 UNITS TABLET 2000 UNITS PO (08:43)
--- NOTE | 2023-09-06 09:51 | PM.IMPN ---
Progress Note: A&P Assessment and Plan (1) C. difficile colitis: Code(s): A04.72 - Enterocolitis due to Clostridium difficile, not specified as recurrent Status: Acute Assessment and Plan: CT abdomen/pelvis: Colitis. Intrahepatic and extrahepatic biliary duct dilatation status post cholecystectomy. C dif positive. - 100 ml/hr NS - Vancomycin PO - Stool culture: Ecoli, shiga toxins, and campylobacter negative, salmonella/shigella pending - Blood culture NGTD (2) Hypokalemia: Code(s): E87.6 - Hypokalemia Status: Acute Assessment and Plan: K 2.5 today. K was repleted and back within normal limits. - Continue to monitor (3) Weakness: Code(s): R53.1 - Weakness Status: Acute Assessment and Plan: Patient states she has had a hard time standing. Weakness likely due to ongoing illness, decreased appetite, and poor mobility. Spoke with daughter and patient about SNF placement at discharge. Daughter states that they plan to go to a SNF and she is waiting on a list from care coordination, however she is concerned about observation status because medicare will not cover and unable to private pay. - PT/OT - Per PT/OT patient would benefit from SNF at discharge for further therapy. (4) Urinary tract infection: Code(s): N39.0 - Urinary tract infection, site not specified Status: Acute Assessment and Plan: - No urinary symptoms at this time - UA: Clear appearance, trace ketones, 2+ blood, positive nitrates, 1+ leukocytes, 3-5 RBC, 21-50 WBC, and 4+ bacteria. - UC obtained on 09/01: Ecoli positive. Sensitivities not resulted yet. - No previous micro to review - started on Rocephin 1g daily 09/03/23 (5) Seizure disorder: Code(s): G40.909 - Epilepsy, unspecified, not intractable, without status epilepticus Status: Acute Assessment and Plan: Most recent seizure was May 08, 2023. She presented to her PCP for follow-up in May and a levetiracetam level was 76.7.? Patient reports she has been taking the same dose of Keppra 1500 mg p.o. b.i.d. since then.?Unknown if this was a titrated down dose. She is unsure what happens after that level was drawn and I am unable to find a follow-up visit.?Per daughter patient has been more agitated and confused as of late, possibly due to elevated keppra levels. - Seizure precautions initiated - Keppra level 57.7 - Keppra held due to supratherapeutic level. Spoke with neurology Dr. Jones and will continue to hold keppra with plan to recheck level in the am. (6) Hypothyroid: Code(s): E03.9 - Hypothyroidism, unspecified Status: Acute Assessment and Plan: Continue home levothyroxine 100 mcg. - TSH 0.608 (7) Moderate malnutrition: Code(s): E44.0 - Moderate protein-calorie malnutrition Status: Acute Assessment and Plan: Evaluated by nutrition. Screen MST 2, 2-13 lb weight loss. C diff +, c/o diarrhea and weakness after eating. - Supplement Subjective Date/time seen: 09/06/23 09:51 Interval history: 83-year-old female with past medical history hypertension, constipation, hypothyroidism, history of TIA, seizure disorder presenting with weakness nausea vomiting and diarrhea.?? Patient is pleasant lying comfortably in bed. She is no longer having diarrhea and is tolerating diet okay. She denies nausea/vomiting. Spoke with neurology Dr. Jones in regards to patients keppra medication. He states that the medication can continue to be held due to supratherapeutic level on 09/01. Will obtain a new keppra level in the am and adjust keppra dosing as appropriate. Patient remains on seizure precautions. She denies chest pain, shortness of breath, and changes in urination. Objective Data Vital Signs Vital Signs: Vital Signs - 24 hr 09/05/23 14:00 09/05/23 20:54 09/05/23 20:00 Temperature 97.6 F 97.5 F L Pulse Rate 67 73 Respiratory Rate 18 18 Blood Pressure 155/72 H 15
[2023-09-06] MEDS: POTASSIUM CHLORIDE 20 MEQ ER TABLET 40 MEQ PO (11:45)
[2023-09-06 14:00] VITALS: BP 138/62; PULSE 90; RESP 20; TEMP 36; O2SAT 100
--- NOTE | 2023-09-06 15:58 | PM.DS ---
DS: Admitting Diagnosis Discharge Date 09/06/23 Admitting Diagnosis C diff colitis hypokalemia weakness urinary tract infection seizure disorder hypothyroid moderate malnutrition DS: Discharge Diagnosis Discharge Diagnosis (1) C. difficile colitis: Code(s): A04.72 - Enterocolitis due to Clostridium difficile, not specified as recurrent Status: Acute (2) Hypokalemia: Code(s): E87.6 - Hypokalemia Status: Acute (3) Weakness: Code(s): R53.1 - Weakness Status: Acute (4) Urinary tract infection: Code(s): N39.0 - Urinary tract infection, site not specified Status: Acute (5) Seizure disorder: Code(s): G40.909 - Epilepsy, unspecified, not intractable, without status epilepticus Status: Acute (6) Hypothyroid: Code(s): E03.9 - Hypothyroidism, unspecified Status: Acute (7) Moderate malnutrition: Code(s): E44.0 - Moderate protein-calorie malnutrition Status: Acute DS: Summary Hospital Course Reason for hospitalization: C diff colitis hypokalemia weakness urinary tract infection seizure disorder hypothyroid moderate malnutrition Hospital Course: 83-year-old female with past medical history hypertension, constipation, hypothyroidism, history of TIA, seizure disorder presenting with weakness nausea vomiting and diarrhea.?CT abdomen/pelvis revealed colitis and patient was C dif positive. She was started on vancomycin PO on 09/02 and will continue antibiotic course at discharge. Diarrhea has since subsided and patient tolerating diet. A urinalysis was concerning for a UTI and a culture was ecoli positive. Patient was started on rocephin on 09/02. This medication was discontinued on 09/05 due to patient being asymptomatic. Patient had hypokalemia during admission likely due to diarrhea. She remained asymptomatic and the level has since returned to normal. She will obtain a CMP outpatient to reevaluate potassium level. Patient has a history of seizures with most recent seizure on May 08, 2023. She presented to her PCP for follow-up in May and a levetiracetam level was 76.7.? Patient reports she has been taking the same dose of Keppra 1500 mg p.o. b.i.d. since then.?Unknown if this was a titrated down dose. She is unsure what happens after that level was drawn and I am unable to find a follow-up visit. Spoke with neurology Dr. Jones on 09/03 in regards to patients keppra medication. He states that the medication can continue to be held due to supratherapeutic level on 09/01. A new keppra level was obtained on 09/05. Patient remains on seizure precautions at that time. Spoke with patients PCP Dr. Lopez on the phone today and he states that on the lower dose of keppra patient was having break through seizures. Discussed with him the concern of keppra toxicity with recent confusion and agitation. He states that he will continue to monitor keppra level outpatient and discuss her medication with her neurologist. Patient was restarted on the keppra 1500 BID at discharge. Discussed with patient and daughter that Dr. Lopez plans to follow the level outpatient and wishes to restart the keppra at the current dose. They state understanding and agreement. Patient discharged to SNF in stable condition. She is to follow up with PCP Dr. Lopez in regards to her keppra and recent admission. She remains on vancomycin PO until 09/13/23. Status at Discharge Functional status at discharge: uses cane/walker Time Spent with Patient Time attestation: Total time spent providing and/or coordinating discharge services: Time spent: Greater than 30 minutes Exam Narrative: AF HR 90 RR 20 SpO2 100 BP 138/62 General: female in no acute respiratory distress who is nontoxic appearing, lying semi recumbent in bed. HEENT: Normocephalic. Atraumatic. Pupils equal round reactive to light. Extraocular movement intact. Sclera clear and anicteric.? No facial asymmetry. Chest: Lungs a
[2023-09-06 16:48] LABS: SARS-CoV-2 RNA PCR Negative (Negative)
[2023-09-07 09:04] LABS: Levetiracetam Keppra <2.0 mcg/mL (6.0-46.0)
== END 2023-09-06 17:40 | DRG 372 ==
LOC: ANHED 17:40 → ANH3MEDSUR 21:10
PROVIDERS: Nurse Practitioner Family; Student in an Organized Health Care Education/Training Program; Admitting Provider General Practice; Emergency Provider Physician Assistant; PCP Family Medicine Adolescent Medicine; Visit Provider Hospitalist
DX: A04.72 Enterocolitis due to Clostridium difficile, not specified as recurrent (principal); E44.0 Moderate protein-calorie malnutrition; N39.0 Urinary tract infection, site not specified; Z68.1 Body mass index [BMI] 19.9 or less, adult; B96.29 Other Escherichia coli [E. coli] as the cause of diseases classified elsewhere; E87.6 Hypokalemia; G40.909 Epilepsy, unspecified, not intractable, without status epilepticus; E03.9 Hypothyroidism, unspecified; I10 Essential (primary) hypertension; Z11.52 Encounter for screening for COVID-19; Z86.73 Personal history of transient ischemic attack (TIA), and cerebral infarction without residual deficits; Z90.49 Acquired absence of other specified parts of digestive tract; Z98.49 Cataract extraction status, unspecified eye; Z96.1 Presence of intraocular lens; Z98.1 Arthrodesis status; Z90.710 Acquired absence of both cervix and uterus; Z96.612 Presence of left artificial shoulder joint; Z96.611 Presence of right artificial shoulder joint; Z79.82 Long term (current) use of aspirin
CPT/HCPCS: 36415; 74177; 80048; 80053; 80177; 81001; 83605; 83735; 84132; 84443; 85025; 87040; 87045; 87077; 87086; 87088; 87186; 87427; 87449; 87493; 87635; 89055; 96361; 96365; 97110; 97161; 97165; 97530; 97535; 99285; A9270; G0378; J0696; J1650; J3480; J7030; J7040; Q9967

== ENCOUNTER 2023-10-26 14:26 | Outpatient (CLI) | payer MEDICARE, BC, SELFPAY ==
--- NOTE | ~2023-10-26 | MM_ITS ---
EXAMINATION: MM screening leah BI w charlene HISTORY: Screening TECHNIQUE: Craniocaudal and mediolateral oblique 3-D tomosynthesis images were obtained and synthetic 2-D images were generated. CAD analysis was submitted and interpreted. COMPARISON: Comparison to multiple prior studies sequentially, with oldest reviewed study dated 06/29. BREAST PARENCHYMAL COMPOSITION: Dense: The breasts are heterogeneously dense, which may obscure small masses FINDINGS: There is a new mass in the lower inner quadrant of the left breast. The right breast is sta ble without evidence for malignancy. IMPRESSION: 1. New left breast mass, lower inner quadrant. 2. Additional mammographic views and possible breast ultrasound are recommended. BI-RADS Category 0: Incomplete: Needs additional imaging evaluation. Reviewed, dictated and finalized at location B. IMPRESSION: 1. New left breast mass, lower inner quadrant. 2. Additional mammographic views and possible breast ultrasound are recommended . BI-RADS Category 0: Incomplete: Needs additional imaging evaluation.
== END 2023-10-26 14:27 ==
LOC: MICIMG 14:27
PROVIDERS: PCP Family Medicine Adolescent Medicine; Visit Provider Obstetrics & Gynecology Gynecology
DX: Z12.31 Encounter for screening mammogram for malignant neoplasm of breast (principal); R92.8 Other abnormal and inconclusive findings on diagnostic imaging of breast
CPT/HCPCS: 77063; 77067

== ENCOUNTER 2023-11-25 09:21 | Outpatient (CLI) | payer MEDICARE, BC, SELFPAY ==
--- NOTE | ~2023-11-25 | MMUS_ITS ---
EXAMINATION: MM diagnostic leah LT w charlene, US breast LT limited HISTORY: Follow-up left breast asymmetry TECHNIQUE: Additional 3-D tomosynthesis images of the left breast were performed and synthetic 2-D im ages were generated. CAD analysis was submitted and interpreted. High resolution Limited left breast ultrasound was performed. COMPARISON: Comparison to multiple prior studies sequentially, with oldest reviewed study dated 08/31. BREAST PARENCHYMAL COMPOSITION: Not dense: There are scattered areas of fibroglandular density. FINDINGS: MAMMOGRAPHIC FINDINGS: The area of asymmetry is less apparent with spot compression mediolateral views. No discrete mass, morrison spicious calcifications or architectural distortion. ULTRASOUND: Limited left breast ultrasound: Normal heterogeneous echotexture without focal solid or cystic mass. IMPRESSION: 1. No evidence for malignancy in the left breast 2. Routine yearly screening mammogram and regular clinical breast examination are recommended. BI-RADS Category 1: Negative Reviewed, dictated and finalized at location B. IMPRESSION: 1. No evidence for malignancy in the left breast 2. Routine yearly screening mammogram and regular clinical breast examination a re recommended. BI-RADS Category 1: Negative
== END 2023-11-25 09:22 ==
PROVIDERS: PCP Family Medicine Adolescent Medicine; Visit Provider Obstetrics & Gynecology Gynecology
DX: R92.8 Other abnormal and inconclusive findings on diagnostic imaging of breast (principal)
CPT/HCPCS: 76642; 77061; 77065; G0279

== ENCOUNTER 2024-08-27 11:57 | Emergency (ER) | payer MEDICARE, BC, SELFPAY ==
--- NOTE | ~2024-08-27 | CT_ITS ---
CT brain wo con Ordering provider: Kurtis Byrd MD History: 84 years Female with . GLF . Comparison: March 24, 2022 Technique: CT of the head without contrast. Radiation reduction technique utilized.The dose-length pr oduct was 681 mGy-cm. FINDINGS: BRAIN PARENCHYMA AND CSF SPACES: Mild leukoaraiosis and diffuse cortical atrophy. Mild atheromatous d isease. Tiny lacunar infarct in the left basal ganglia. No midline shift, mass effect or hemorrhage. The brain parenchyma and CSF spaces are otherwise normal. VISUALIZED PARANASAL SINUSES: Well aerated. MASTOIDS: Well aerated. BONES: The bones appear intact. SOFT TISSUES: Visualized nasopharynx is normal. Superficial soft tissues are normal. IMPRESSION: No acute intracranial findings. Reviewed, dictated and finalized at location A.
--- NOTE | ~2024-08-27 | CT_ITS ---
CT lumbar spine wo con Ordering provider: Kurtis Byrd MD History: 84 years Female with . GLF . Comparison: None. Technique: CT lumbar spine without contrast. Automated exposure control and iterative reconstruction technique were employed. The dose-length product was 231.71 mGy-cm. FINDINGS: VERTEBRAE: Normal height and alignment. No subluxation or visible acute fracture. Degenerative change s of the spine. Levoscoliosis. Minimal anterolisthesis at the level of L2-L3. DISC SPACES: Narrowing of all the disc spaces. Multilevel facet joint disease. Bilateral sacroiliacs. Severe T12-L1: No stenosis. L1-L2: Severe spinal canal stenosis by osteophytes and diffuse disc bulge with bilateral narrowing o f the foramina and nerve root compression. L2-L3: Severe spinal canal stenosis secondary to broad based disc bulge, osteophytes., facet arthrop athy, and ligamentum flavum hypertrophy. Bilateral narrowing of the foramina nerve root compression L3-L4:. Severe spinal canal stenosis secondary to broad based disc bulge, osteophytes., facet arthrop athy, and ligamentum flavum hypertrophy. Bilateral narrowing of the foramina nerve root compression L4-L5: No stenosis. Mild diffuse disc bulge. L5-S1: No stenosis. PARASPINOUS SOFT TISSUES: Mild atheromatous disease of the abdominal aorta. IMPRESSION: Multilevel degenerative disc disease with variable degrees of intervertebral foraminal narrowing and spinal canal stenosis. Provided that there are no contraindications, consider follow up MRI lumbar spine if the patient has continued back pain and there is clincal concern for neural impingement/spinal stenosis. Reviewed, dictated and finalized at location A. IMPRESSION: Multilevel degenerative disc disease with variable degrees of intervertebral fo raminal narrowing and spinal canal stenosis. Provided that there are no contraindications, consider follow up MRI lumbar spi ne if the patient has continued back pain and there is clincal concern for neur al impingement/spinal stenosis.
--- NOTE | ~2024-08-27 | CT_ITS ---
CT cervical spine wo con Ordering provider: Kurtis Byrd MD History: . GLF . Comparison: None. Technique: CT of the cervical spine was performed without contrast. Sagittal and coronal reformatted images were also obtained and reviewed. Automated exposure control and iterative reconstruction [place] hnique were employed. The dose-length product was 163.62 mGy-cm. FINDINGS: VERTEBRAE: No subluxation or acute fracture. The occipital condyles are intact. Fusion of C5-C6 is n oted. Kyphosis centered at the level of C5. DISC SPACES: Degenerative disc disease at the level of C3-C4, C4-C5, C6-C7, C7-T1, T1-T2 and T2-T3.. Multilevel facet joint disease. Multilevel uncovertebral joint osteoarthritic changes. Narrowing of t he left foramina at the level of C2-C3. Bilateral narrowing of the foramina at the level of C3-C4, C4 -C5, C5-C6 and C6-C7. Spinal stenosis seen at multiple levels including C3-C4, C4-C5, C5-C6 and C6-C7 PARASPINOUS SOFT TISSUES: Bilateral carotid calcifications. IMPRESSION: No acute osseous abnormality cervical spine. Multilevel degenerative disc disease. Reviewed, dictated and finalized at location A.
--- NOTE | ~2024-08-27 | XR_ITS ---
XR hip LT 2V w AP pelvis Ordering provider: Kurtis Byrd MD History: . FALL TODAY L HIP PAIN . Comparison: None. FINDINGS: BONES: No acute fracture or dislocation. HIP JOINT SPACES: Right hip severe osteoarthritic changes. Left hip moderate osteoarthritic changes. SACROILIAC JOINT SPACES/LUMBAR SPINE: The sacroiliac joint spaces shows bilateral sacroiliitis.. Mild degenerative changes of the visualized lower lumbar spine. PUBIC SYMPHYSIS: Pubic symphysitis. SOFT TISSUES: Normal. IMPRESSION: No acute osseous abnormality pelvis and left hip. If still suspicious CT is advised. Reviewed, dictated and finalized at location A.
[2024-08-27 12:11] VITALS: BP 149/98; PULSE 69; RESP 18; TEMP 36.4; O2SAT 100
--- OUTSIDE RECORDS SUMMARY | 2024-08-27 12:23 | XMS_ITS | Clinical Summary ---
Author Organization [facility] Address [address] [place] [id number] Care Team Providers Care Financial Analyst Intern Name Role Phone Unavailable Primary Care Provider Unavailabl e Social History Tobacco Use Types Packs/Day Years Used Date Smoking Tobacco: Never Assessed Comments Unknown Sex and Gender Information Value Date Recorded Sex Assigned at Not on file Legal Sex Female 7:01 PM CDT Gender Identity Not on file Sexual Orientation Not on file Plan of Treatment Health Maintenance Due Date Last Done Comments DTaP, Tdap and Td Vaccines ( 1 - Tdap) 1957 Zoster Vaccines (1 of 2) 1988 Pneumococcal Vaccine: 50+ Ye ars (1 of 1 - PCV) 2003 RSV Immunization or 60+ Years (1 - 1-dose 75+ series) 2013 COVID-19 Vaccine ( - 2023-2 5 season) 2024 Meningococcal B Vaccine Aged Out No l onger eligible based on patient's age to complete this topic Meningococcal Vaccine Aged Out No mary kg eligible based on patient's age to complete this topic RSV Immunizations Under 20 Months Aged Out No longer eligible based on patient's age to complete this topic
--- OUTSIDE RECORDS SUMMARY | 2024-08-27 12:23 | XMS_ITS | Referral Summary ---
Author Organization [facility] Address [address] [place] [address] Care Team Providers Care Switch Operators Supervisor Name Role Phone Luciano Arroyo MD Primary Care Prov ider Allergies Active Allergy Reactions Criticality Noted Date Comments Penicillins Itching,Swelling Medium 03/28/2019 Swelling Medications SYNTHROID 125 mcg tablet 9 Active hydroxychloroqu ine (PLAQUENIL) 200 mg tablet 9 Active fenofibrate (TRIGLIDE) 160 mg tablet 9 Active cetirizine 10 mg capsule cetirizine 10 mg capsule Take by oral route. Active celecoxib (CeleBREX) 200 mg capsule 9 Active atorvastatin (LIPITOR) 20 mg tablet 9 Active diphenoxylate HCl/atropine (DIPHENOXYLATE- ATROPINE ORAL) Take by mouth A ctive multivit,calc,m ins/iron/folic (ONE-A-DAY WOMENS FORMULA ORAL) Take by mouth Active thiamine (vitamin B-1) 250 mg tablet Take 1 tablet (250 mg total) by mouth daily Active pyridoxine (vitamin B-6) 100 mg tablet Take 100 mg by mouth daily Active cyanocobalamin, vitamin B-12, (VITAMIN B-12 ORAL) Take 3,000 mcg by mouth Active vitamin E (AQUASOL E) 200 unit capsule Take 200 Units by mouth daily Active cinnamon bark-chromium picolin 500-100 mg-mcg capsule Take by mouth A ctive oxyCODONE-aceta minophen (PERCOCET) 5-325 mg per tabletIndicatio ns:S/P reverse total shoulder arthroplasty, right Take 1 tablet by mouth every 6 (six) hours as needed for pain 60 tablet 0 Active Additional Information Patient not taking.Reported on 05/04/2024 HYDROcodone-betito taminophen (NORCO) 5-325 mg per tablet Take 1 tablet by mouth every 6 (six) hours as needed for pain 60 tablet Active Additional Information Patient not taking.Reported on 05/04/2024 levETIRAcetam XR (KEPPRA XR) 500 mg 24 hr tablet Take 1 tablet (500 mg total) by mouth daily 1500 mg BID Active aspirin 81 mg enteric coated tablet Take 1 tablet (81 mg total) by mouth daily Active Active Problems Problem Noted Date Diagnosed Date Right knee pain 02/21/2021 Primary osteoarthritis of right knee 01/09/2021 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 10/31/2020 s/p right rerverse total antoni ulder arthroplasty on 11/22/2019 08/29/2020 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 08/29/2020 OA right shoulder-severe glenohumeral joint 04/17 Impingement syndrome of right shoulder 9 Social History Tobacco Use Types Packs/Day Years Used Date Smoking Tobacco: Never Alcohol Use Standard Drinks/Week Comments Yes 0 (1 standard drink = 0.6 oz pur e alcohol) socially Comments Unknown Sex and Gender Information Value Date Recorded Sex Assigned at Not on file Legal Sex Female 3:42 AM SUBSTATION MECHANIC Gender Identity Not on file Sexual Orientation Not on file 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 Not on file Not on file Not on cristela e Last Filed Vital Signs Vital Sign Reading Time Taken Comments Blood Pressure 158/76 10/16/2020 7:17 AM CDT Pulse 82 10/16/2020 7:17 AM CDT Temperature 36.7 C (98.1 F) 10/16/2020 7:17 AM CDT Respiratory Rate - - Oxygen Saturation 98% 10/16/2020 7:17 AM CDT Inhaled Oxygen Concentration - - Weight 50.8 kg (112 lb) 05/04/2024 11:13 AM SUBSTATION MECHANIC Height 165.1 cm (5' 5 ) 05/04/2024 11:13 AM SUBSTATION MECHANIC Body Mass Index 18.64 05/04/2024 11:13 AM SUBSTATION MECHANIC Plan of Treatment Not on file Insurance MEDICARE [facility] Address: [address] [place] [address] MEDICARE [facility] MEDICARE [facility] Advance Directives For more information, please contact: [phone] Documents on File Type Date Recorded Patient Summer Law Associate Expl anation ADVANCE DIRECTIVE 11/09/2019 12:00 AM JESSICA NG WILL ADVANCE DIRECTIVE 11/09/2019 12:00 AM THEODORE Hagen OF [employer] Care Teams Switch Operators Supervisor Relationship Specialty Start Date End Date Luciano Arroyo MD [address] [place] [address] PCP - General 10/30/14
--- OUTSIDE RECORDS SUMMARY | 2024-08-27 12:23 | XMS_ITS ---
Author Name Yusra Reveles Address [address] [place] [address] Phone [phone] Organization [facility] ice Address [address] [place] [address] Phone [phone] Care Team Providers Care Research Test Engine Evaluator Name Role Phone Yusra Reveles Unavailable [phone] Shun Ceja Unavailable [phone] Functional Status Mental Status Allergies and Intolerances Encounters Immunizations Medications Problems Vital Signs Reason for Referral
--- OUTSIDE RECORDS SUMMARY | 2024-08-27 12:24 | XMS_ITS | Continuity of Care Document ---
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 Role Phone Yony Jung Unavailable Unavailable Procedures Procedure Date Hot or Cold Pack Manual Therapy Therapeutic Activities Neuromuscular Re-Ed Therapeutic Activities Hot or Cold Pack Manual Therapy Neuromuscular Re-Ed Manual Therapy Neuromuscular Re-Ed Therapeutic Exercise Hot or Cold Pack Therapeutic Activities Neuromuscular Re-Ed Hot or Cold Pack Manual Therapy Therapeutic Activities Manual Therapy Hot or Cold Pack Neuromuscular Re-Ed Therapeutic Activities Therapeutic Exercise Neuromuscular Re-Ed Manual Therapy Hot or Cold Pack Hot or Cold Pack Neuromuscular Re-Ed Therapeutic Exercise Therapeutic Activities Therapeutic Activities Hot or Cold Pack Therapeutic Exercise Manual Therapy Neuromuscular Re-Ed Therapeutic Activities Progress Note Neuromuscular Re-Ed Manual Therapy Hot or Cold Pack Neuromuscular Re-Ed Therapeutic Activities Therapeutic Exercise Hot or Cold Pack Therapeutic Activities Neuromuscular Re-Ed Hot or Cold Pack Therapeutic Activities Neuromuscular Re-Ed Hot or Cold Pack Manual Therapy Manual Therapy Neuromuscular Re-Ed Hot or Cold Pack Therapeutic Activities Therapeutic Exercise Therapeutic Activities Neuromuscular Re-Ed PT Re-evaluation Hot or Cold Pack Manual Therapy Hot or Cold Pack Therapeutic Activities Neuromuscular Re-Ed Therapeutic Activities Neuromuscular Re-Ed Hot or Cold Pack Manual Therapy Therapeutic Activities Neuromuscular Re-Ed Hot or Cold Pack Manual Therapy Therapeutic Activities Manual Therapy Neuromuscular Re-Ed Hot or Cold Pack Therapeutic Activities Neuromuscular Re-Ed Hot or Cold Pack Progress Note Manual Therapy Neuromuscular Re-Ed Hot or Cold Pack Therapeutic Activities Neuromuscular Re-Ed Manual Therapy Therapeutic Activities Hot or Cold Pack Therapeutic Activities Neuromuscular Re-Ed Manual Therapy Hot or Cold Pack Hot or Cold Pack Neuromuscular Re-Ed Therapeutic Activities Therapeutic Exercise Neuromuscular Re-Ed Therapeutic Exercise Therapeutic Activities Hot or Cold Pack Neuromuscular Re-Ed Therapeutic Activities Hot or Cold Pack Therapeutic Activities Neuromuscular Re-Ed Hot or Cold Pack Therapeutic Activities Hot or Cold Pack Therapeutic Exercise Neuromuscular Re-Ed PT Evaluation Moderate Complexity Neuromuscular Re-Ed Therapeutic Exercise Advance Directives Directive Yes / No Effective Date File Name No Information Encounters Encounter Description Practice Location Reason(s) For Visit Diagnoses Date Provider Providers Copied on Encounter [facility], [id number], tel:[phone] [place] No Information 2 Roderick Bhakta. [address], [facility], . tel:[phone] Referring Provider: Jc Dai, [address] [place] [address], [facility]. tel:[phone] [facility] [address], [id number], tel:[phone] [place] No Information 2 Roderick Bhakta. [address] [facility], [address], [facility], . tel:[phone] Referring Provider: Jc Dai, [address] [place] [address], [facility]. tel:[phone] [facility] [address], [id number], tel:[phone] [place] No Information 2 Muehl Yony. [address] [facility], [address], [place], [address], [place]. tel:[phone] Referring Provider: Jc Dai, [address] [place] [address] [address], [place], [address]. tel:[phone] [facility] [address] [facility] [address], [place], [id number], [place] tel:[phone] [place] No Information 2 Muehl Yony. [address] [facility], [address], [place], [address], [place]. tel:[phone] Referring Provider: Jc Dai, [address] [place] [address] [address], [place], [address]. tel:[phone], [id number], [place] tel:[phone] [place] No Information 2 Muehl Yony. [address] [facility], [address], [place], [address], [place]. tel:[phone] Referring Provider: Jc Dai, [address] [place] [address] [address], [place], [address]. tel:[phone] [facility] [address] [place], [place] [address], [place], [id number], [place] tel:[phone] [place] No Information 2 Muehl Yony. [address] [facility], [address], [place], [address], [place]. tel:[phone] Referring Provider: Jc Dai, [address] [place] [address] [address], [place], [address]. tel:[phone] [facility] [address], [place], [place], [id number], [place] tel:[phone] [place] No Information 2 Olvin Ramos . Referring Provider: Jc Dai, [address] [place] [address] [address], [place], [address]. tel:[phone] [address], [place], [id number], [place] tel:[phone] [place] No Information 2 Andrea Jose Manuel. [address] [facility], [address], [place], [address], [place]. tel:[phone] Referring Provider: Jc Dai, [address] [place] [address] [address], [place], [address]. tel:[phone], [place], [id number], [place] tel:[phone] [place] No Information 2 Muehl Yony. [address] [facility], [address], [address], [place]. tel:[phone] Referring Provider: Jc Dai, [address] [place] [address] [address], [place], [address]. tel:[phone] [address], [place], [id number], [place] tel:[phone] [place] No Information 2 Muehl Yony. [address] [facility], [address], [place], [address], [place]. tel:[phone] Referring Provider: Jc Dai, [address] [place] [address] [address], [place], [address]. tel:[phone], [place], [id number], [place] tel:[phone] [place] No Information 2 Muehl Yony. [address] [facility], [address], [place], [address], [place]. tel:[phone] Referring Provider: Jc Dai, [address] [place] [address] [address], [place], [address]. tel:[phone] [place] [address] [facility] [address], [place], [place], [id number], tel:[phone] [place] No Information 2 Muehl Yony. [address] [facility], [address], [place], [facility], . tel:[phone] Referring Provider: Jc Dai, [address] [place] [address] [address], [place], [address]. tel:[phone] [facility] [address] [facility] [address], [place], [place], [id number], [place] tel:[phone] [place] No Information 1 Muehl Yony. [address] [facility], [facility] [address], [place], [facility], [place]. tel:[phone] Referring Provider: Jc Dai, [address] [place] [address] [address] [facility], [place], [address]. tel:[phone] [facility] [address] [place] [address] [address], [place], [place], [id number], tel:[phone] [place] No Information 1 Muehl Yony. [address] [facility], [facility] [address], [place], [facility], [place]. tel:[phone] Referring Provider: Jc Dai, [address] [place] [address] [address], [place], [address]. tel:[phone] [facility] [address] [facility] [address], [place], [id number], [place] tel:[phone] [place] No Information 1 Muehl Yony. [address] [facility], [address], [place], [facility], [place]. tel:[phone] Referring Provider: Jc Dai, [address] [place] [address] [address], [place], [address]. tel:[phone] [facility] [address] [facility] [address], [place], [id number], tel:[phone] [place] No Information Apr-0 1 Muehl Yony. [address] [facility], [address], [place], [facility], [place]. tel:[phone] Referring Provider: Jc Dai, [address] [place] [address] [address], [place], [address]. tel:[phone], [place], [place], [id number], tel:[phone] [place] No Information Apr-0 1 Muehl Yony. [address] [facility], [address], [place], [facility], [place]. tel:[phone] Referring Provider: Jc Dai, [address] [place] [address] [address], [place], [address]. tel:[phone], [id number], [place] tel:[phone] [place] No Information Apr-0 1 Muehl Yony. [address] [place] [address], [address], [place], [facility], [place]. tel:[phone] Referring Provider: Jc Dai, [address] [place] [address] [address], [place], [address]. tel:[phone], [place], [id number], tel:[phone] [place] No Information 1 Muehl Yony. [address] [facility], [address], [place], [address], [place]. tel:[phone] Referring Provider: Jc Dai, [address] [place] [address] [address], [place], [address]. tel:[phone], [place], [id number], [place] tel:[phone] [place] No Information 2 1 Muehl Yony. [address] [facility], [address], [place], [address], [place]. tel:[phone] Referring Provider: Jc Dai, [address] [place] [address] [address], [place], [address]. tel:[phone], [id number], tel:[phone] [place] No Information 1 Muehl Yony. [address] [facility], [address], [place], [facility], [place]. tel:[phone] Referring Provider: Jc Dai, [address] [place] [address] [address], [place], [address]. tel:[phone], [id number], tel:[phone] [place] No Information 1 Muehl Yony. [address] [place] [address], [facility] [address], [place], [facility], [place]. tel:[phone] Referring Provider: Jc Dai, [address] [place] [address] [address], [place], [address]. tel:[phone], [id number], tel:[phone] [place] No Information 0 1 Muehl Yony. [address] [facility], [address], [facility], [place]. tel:[phone] Referring Provider: Jc Dai, [address] [place] [address] [address], [place], [address]. tel:[phone], [id number], tel:[phone] [place] No Information 0 1 Muehl Yony. [address] [facility], [address], [place], [facility], . tel:[phone] Referring Provider: Jc Dai, [address] [place] [address] [address], [place], [address]. tel:[phone], [place], [id number], tel:[phone] [place] No Information 1 Muehl Yony. [address] [place] [address], [address], [facility], . tel:[phone] Referring Provider: Jc Dai, [address] [place] [address] [address], [place], [address]. tel:[phone], [id number], tel:[phone] [place] No Information 1 Muehl Yony. [address] [place] [address], [facility] [address], [place], [facility], . tel:[phone] Referring Provider: Jc Dai, [address] [place] [address], [address]. tel:[phone], [id number], tel:[phone] [place] No Information 1 Muehl Yony. [address] [place] [address], [address], [facility], [place]. tel:[phone] Referring Provider: Jc Dai, [address] [place] [address] [address], [place], [address]. [phone], [place], [id number], [place] tel:[phone] [place] No Information 1 Muehl Yony. [address] [place] [address], [facility] [address], [place], [facility], [place]. tel:[phone] Referring Provider: Jc Dai, [address] [place] [address] [address], [place], [address]. tel:[phone] Family History Family Member Type Diagnosis Age At Onset No Information Payers Payer name Insurance type Covered alliance party ID Authoriza tion(s) Medicare [facility] [id number] [facility] [id number] Social History Type Description Quantity Date Captured Comments Sex Female Smoking Status No Information Chief Complaint And Reason For Visit No Information Reason For Referral Reason For Referral No Information History Of Present Illness Encounter Date Complaint History Of Prese nt Illness No Information Functional Status Date Functional Assessmen t No Information Instructions Date Instruction Additional Infor mation No Information Assessments Type Assessment Date No Information Patient Care Teams Name Effective Dates (start - stop) Status Members No Information
--- OUTSIDE RECORDS SUMMARY | 2024-08-27 12:24 | XMS_ITS ---
Author Name FranklinYusra urena Zana Address [address] [place] [address] Phone [phone] [facility] Address [address] [place] [address] Phone [phone] Care Team Providers Care Science Technician Name Role Phone FranklinYusra urena Zana Unavailable Shun Ceja Unavailable [phone] Functional Status No Results Mental Status No Results Allergies and Intolerances Name Onset Date Reaction Severity niacin (Allergy) WedSep 05 18:57:00 EDT 2023 penicillin (Allergy) WedSep 05 18:56:00 EDT Encounters Program Name Primary Diagnosis Admission Date/Time Dis charge Date/Time [facility] Care Facility [facility] WedSep 05 13:45:00 EDT 2023September 26 12:30:00 EDT 2023 Immunizations Name Dates Status TST-PPD intradermal WedSep 07 01:00:00 EDT 2023 Completed TST-PPD intradermal WedSep 09 01:00:00 EDT 2023 Completed Medications Medication Directions Start Date End Date docusate sodium 100 mg capsule 1 capsule CAPSULE Oral 1 Time Daily Indication: Constipation WedSeptember 19 14:00:00 EDT 2023September 26 01:00:00 EDT 2023 diphenoxylate-atropine 2.5 mg-0.025 mg tablet 1 tab TABLET Oral PRN Every 4 Hours for 14 Days Indication: Diarrhea WedSep 07 15:00:00 EDT 2023September 21 14:59:00 EDT 2023 TubersoL 5 tub. unit/0.1 mL intradermal injection solution 0.1 ml VIAL (ML) Intradermal 1 Time Weekly for 2 Weeks Indication: Rule out TB 1st injection on admission, then one week after. Read between 48 and 72 hours WedSep 06 15:00:00 EDT 2023September 20 14:59:00 EDT 2023 TubersoL 5 tub. unit/0.1 mL intradermal injection solution Read Results VIAL (ML) Other 1 Time Weekly for 2 Weeks Indication: rule out tb Read results between 48-72 hours after 1st and 2nd (1 week apart). If positive do chest x-ray. WedSep 06 15:00:00 EDT 2023September 20 14:59:00 EDT 2023 vancomycin 125 mg capsule 1 cap CAPSULE Oral Every 6 Hours for 6 Days Indication: C-diff WedSep 05 19:00:00 EDT 2023Sep 11 18:59:00 EDT 2023 aspirin 81 mg tablet,delayed release 1 tab TABLET, DELAYED RELEASE (ENTERIC COATED) Oral 1 Time Daily Indication: Heart Health WedSep 05 19:00:00 EDT 2023September 26 01:00:00 EDT 2023 Vitamin B-1 250 mg tablet 1 tab TABLET O ral 1 Time Daily Indication: Supplement WedSep 05 19:00:00 EDT 2023September 26 01:00:00 EDT 2023 cetirizine 10 mg tablet 1 tab TABLET Ora l PRN 1 Time Daily Indication: Allergies WedSep 05 19:00:00 EDT 2023September 26 01:00:00 EDT 2023 acetaminophen 325 mg capsule 1 tab CAPSU LE Oral PRN Every 6 Hours Indication: Pain WedSep 05 19:02:00 EDT 2023September 26 01:00:00 EDT 2023 atorvastatin 20 mg tablet 1 tab TABLET O ral 1 Time Daily Indication: HLD WedSep 05 19:00:00 EDT 2023September 26 01:00:00 EDT 2023 fenofibrate 160 mg tablet 1 tab TABLET O ral 1 Time Daily Indication: HTN WedSep 05 19:05:00 EDT 2023September 26 01:00:00 EDT 2023 cholecalciferol (vitamin D3) 50 mcg (2,000 unit) tablet 1 tab TABLET Oral 1 Time Daily Indication: Supplement WedSep 05 19:00:00 EDT 2023September 26 01:00:00 EDT 2023 celecoxib 200 mg capsule 1 cap CAPSULE O ral 2 Times Daily Indication: Pain WedSep 05 19:00:00 EDT 2023September 26:00:00 EDT 2023 levothyroxine 100 mcg tablet 1 tab TABLE T Oral 1 Time Daily Indication: thyroid WedSep 05 19:00:00 EDT 2023September 26 01:00:00 EDT 2023 levETIRAcetam 750 mg tablet 1500 mg TABL ET Oral 2 Times Daily Indication: Seizure WedSep 05 19:00:00 EDT 2023Sep 05 19:13:00 EDT 2023 traMADoL 50 mg tablet 1 to 2 tabs TABLET Oral PRN Every 6 Hours Indication: Pain WedSep 05 19:00:00 EDT 2023September 26 01:00:00 EDT 2023 diphenoxylate-atropine 2.5 mg-0.025 mg tablet 1 tab TABLET Oral PRN Every 4 Hours Indication: Diarrhea WedSep 05 19:12:00 EDT 2023Sep 07 15:19:00 EDT 2023 levETIRAcetam 750 mg tablet 1500 mg/ 2 t abs TABLET Oral 2 Times Daily Indication: Seizures WedSep 05 19:30:00 EDT 2023September 26 01:00:00 EDT 2023 Problems Active Concerns * Enterocolitis due to Clostridium difficile, not specified as recurrent* Code: * Start Date: WedSep 05 00:00:00 EDT 2023 * End Date: * Text: * Hypokalemia* Code: * Start Date: WedSep 05 00:00:00 EDT 2023 * End Date: * Text: * Urinary tract infection, site not specified* Code: * Start Date: WedSep 05 00:00:00 EDT 2023 * End Date: * Text: * Epilepsy, unspecified, not intractable, without status epilepticus* Code: * Start Date: WedSep 05 00:00:00 EDT 2023 * End Date: * Text: * Hypothyroidism, unspecified* Code: * Start Date: WedSep 05 00:00:00 EDT 2023 * End Date: * Text: * Moderate protein-calorie malnutrition* Code: * Start Date: WedSep 05 00:00:00 EDT 2023 * End Date: * Text: * Personal history of transient ischemic attack (TIA), and cerebral infarction without residual deficits* Code: * Start Date: WedSep 05 00:00:00 EDT 2023 * End Date: * Text: * Essential (primary) hypertension* Code: * Start Date: WedSep 05 00:00:00 EDT 2023 * End Date: * Text: * Constipation, unspecified* Code: * Start Date: WedSep 05 00:00:00 EDT 2023 * End Date: * Text: * Unspecified Escherichia coli [E. 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 * FREDERICKSocial Prerna Howard will be involved in goal development to the best of his or her ability.* Code: * Start Date: WedSep 08 00:00:00 EDT 2023 * End Date: * Text: FREDERICKSocial Prerna Howard will be involved in goal development to the best of his or her ability. * FREDERICKSocial Prerna Howard has family/friends who are supportive.* Code: * Start Date: WedSep 08 00:00:00 EDT 2023 * End Date: * Text: FREDERICKSocial Prerna Howard has family/friends who are supportive. * ELMERSTomasSocial Prerna Howard's mobility level is different than prior level due to current medical condition.* Code: * Start Date: WedSep 08 00:00:00 EDT 2023 * End Date: * Text: Eliezer Smith mobility level is different than prior level due to current medical condition. * Eliezer Howard will be involved in discharge planning.* Code: * Start Date: WedSep 08 00:00:00 EDT 2023 * End Date: * Text: Eliezer Howard will be involved in discharge planning. Vital Signs Vital Sign Measurement Date Body weight 114.60 [lb_av] WedSeptember 26 11:24 :54 EDT 2023 Systolic Blood Pressure 127.00 mm[Hg] WedSeptember 26 08:46:26 EDT 2023 Diastolic Blood Pressure 80.00 mm[Hg] WedSeptember 26 08:46:26 EDT 2023 Heart Rate 84.00 /min WedSeptember 26 08:46 :26 EDT 2023 Body temperature 98.90 [degF] WedSeptember 26 08:4 6:26 EDT 2023 Respiratory rate 18.00 /min WedSeptember 26 08:4 6:26 EDT 2023 Systolic Blood Pressure 144.00 mm[Hg] WedSeptember 25 22:29:56 EDT 2023 Diastolic Blood Pressure 69.00 mm[Hg] WedSeptember 25 22:29:56 EDT 2023 Heart Rate 62.00 /min WedSeptember 25 22:29 :56 EDT 2023 Body temperature 97.60 [degF] WedSeptember 25 22:2 9:56 EDT 2023 Respiratory rate 18.00 /min WedSeptember 25 22:2 9:56 EDT 2023 Systolic Blood Pressure 127.00 mm[Hg] WedSeptember 25 09:31:01 EDT 2023 Diastolic Blood Pressure 74.00 mm[Hg] WedSeptember 25 09:31:01 EDT 2023 Body weight 109.60 [lb_av] WedSeptember 25 09:31 :01 EDT 2023 Heart Rate 56.00 /min WedSeptember 25 09:31 :01 EDT 2023 Body temperature 98.30 [degF] WedSeptember 25 09:3 1:01 EDT 2023 Respiratory rate 18.00 /min WedSeptember 25 09:3 1:01 EDT 2023 Systolic Blood Pressure 169.00 mm[Hg] WedSeptember 24 23:31:37 EDT 2023 Diastolic Blood Pressure 95.00 mm[Hg] WedSeptember 24 23:31:37 EDT 2023 Heart Rate 65.00 /min WedSeptember 24 23:31 :37 EDT 2023 Body temperature 98.20 [degF] WedSeptember 24 23:3 1:37 EDT 2023 Respiratory rate 18.00 /min WedSeptember 24 23:3 1:37 EDT 2023 Body weight 111.20 [lb_av] WedSeptember 24 13:04 :26 EDT 2023 Systolic Blood Pressure 149.00 mm[Hg] WedSeptember 24 11:51:30 EDT 2023 Diastolic Blood Pressure 83.00 mm[Hg] WedSeptember 24 11:51:30 EDT 2023 Heart Rate 66.00 /min WedSeptember 24 11:51 :30 EDT 2023 Body temperature 97.70 [degF] WedSeptember 24 11:5 1:30 EDT 2023 Respiratory rate 18.00 /min WedSeptember 24 11:5 1:30 EDT 2023 Systolic Blood Pressure 136.00 mm[Hg] WedSeptember 24 02:12:06 EDT 2023 Diastolic Blood Pressure 74.00 mm[Hg] WedSeptember 24 02:12:06 EDT 2023 Heart Rate 70.00 /min WedSeptember 24 02:12 :06 EDT 2023 Body temperature 97.80 [degF] WedSeptember 24 02:1 2:06 EDT 2023 Respiratory rate 18.00 /min WedSeptember 24 02:1 2:06 EDT 2023 Body weight 112.20 [lb_av] WedSeptember 23 13:30 :17 EDT 2023 Systolic Blood Pressure 163.00 mm[Hg] WedSeptember 23 10:53:31 EDT 2023 Diastolic Blood Pressure 80.00 mm[Hg] WedSeptember 23 10:53:31 EDT 2023 Heart Rate 74.00 /min WedSeptember 23 10:53 :31 EDT 2023 Body temperature 97.80 [degF] WedSeptember 23 10:5 3:31 EDT 2023 Respiratory rate 18.00 /min WedSeptember 23 10:5 3:31 EDT 2023 Systolic Blood Pressure 123.00 mm[Hg] WedSeptember 23 00:17:37 EDT 2023 Diastolic Blood Pressure 82.00 mm[Hg] WedSeptember 23 00:17:37 EDT 2023 Heart Rate 60.00 /min WedSeptember 23 00:17 :37 EDT 2023 Body temperature 98.90 [degF] WedSeptember 23 00:1 7:37 EDT 2023 Respiratory rate 18.00 /min WedSeptember 23 00:1 7:37 EDT 2023 Body weight 111.00 [lb_av] WedSeptember 22 15:16 :38 EDT 2023 Systolic Blood Pressure 135.00 mm[Hg] WedSeptember 22 09:48:45 EDT 2023 Diastolic Blood Pressure 85.00 mm[Hg] WedSeptember 22 09:48:45 EDT 2023 Heart Rate 72.00 /min WedSeptember 22 09:48 :45 EDT 2023 Body temperature 98.20 [degF] WedSeptember 22 09:4 8:45 EDT 2023 Respiratory rate 18.00 /min WedSeptember 22 09:4 8:45 EDT 2023 Systolic Blood Pressure 138.00 mm[Hg] WedSeptember 22 01:00:00 EDT 2023 Diastolic Blood Pressure 65.00 mm[Hg] WedSeptember 22 01:00:00 EDT 2023 Heart Rate 68.00 /min WedSeptember 22 01:00 :00 EDT 2023 Body temperature 97.40 [degF] WedSeptember 22 01:0 0:00 EDT 2023 Respiratory rate 18.00 /min WedSeptember 22 01:0 0:00 EDT 2023 Systolic Blood Pressure 100.00 mm[Hg] WedSeptember 21 08:32:25 EDT 2023 Diastolic Blood Pressure 60.00 mm[Hg] WedSeptember 21 08:32:25 EDT 2023 Body weight 108.60 [lb_av] WedSeptember 21 08:32 :25 EDT 2023 Heart Rate 74.00 /min WedSeptember 21 08:32 :25 EDT 2023 Body temperature 97.60 [degF] WedSeptember 21 08:3 2:25 EDT 2023 Respiratory rate 18.00 /min WedSeptember 21 08:3 2:25 EDT 2023 Systolic Blood Pressure 152.00 mm[Hg] WedSeptember 20 22:37:22 EDT 2023 Diastolic Blood Pressure 60.00 mm[Hg] WedSeptember 20 22:37:22 EDT 2023 Body temperature 98.50 [degF] WedSeptember 20 22:3 7:22 EDT 2023 Respiratory rate 18.00 /min WedSeptember 20 22:3 7:22 EDT 2023 Heart Rate 59.00 /min WedSeptember 20 22:37 :22 EDT 2023 Body weight 109.00 [lb_av] WedSeptember 20 15:01 :22 EDT 2023 Systolic Blood Pressure 143.00 mm[Hg] WedSeptember 20 10:09:08 EDT 2023 Diastolic Blood Pressure 74.00 mm[Hg] WedSeptember 20 10:09:08 EDT 2023 Heart Rate 69.00 /min WedSeptember 20 10:09 :08 EDT 2023 Body temperature 97.60 [degF] WedSeptember 20 10:0 9:08 EDT 2023 Respiratory rate 18.00 /min WedSeptember 20 10:0 9:08 EDT 2023 Systolic Blood Pressure 147.00 mm[Hg] WedSeptember 19 22:13:23 EDT 2023 Diastolic Blood Pressure 73.00 mm[Hg] WedSeptember 19 22:13:23 EDT 2023 Heart Rate 103.00 /min WedSeptember 19 22:13 :23 EDT 2023 Body temperature 98.70 [degF] WedSeptember 19 22:1 3:23 EDT 2023 Respiratory rate 18.00 /min WedSeptember 19 22:1 3:23 EDT 2023 Body weight 114.80 [lb_av] WedSeptember 19 16:27 :41 EDT 2023 Systolic Blood Pressure 117.00 mm[Hg] WedSeptember 19 10:30:45 EDT 2023 Diastolic Blood Pressure 60.00 mm[Hg] WedSeptember 19 10:30:45 EDT 2023 Heart Rate 83.00 /min WedSeptember 19 10:30 :45 EDT 2023 Body temperature 98.00 [degF] WedSeptember 19 10:3 0:45 EDT 2023 Respiratory rate 18.00 /min WedSeptember 19 10:3 0:45 EDT 2023 Systolic Blood Pressure 141.00 mm[Hg] WedSeptember 19 00:11:42 EDT 2023 Diastolic Blood Pressure 68.00 mm[Hg] WedSeptember 19 00:11:42 EDT 2023 Heart Rate 71.00 /min WedSeptember 19 00:11 :42 EDT 2023 Body temperature 97.70 [degF] WedSeptember 19 00:1 1:42 EDT 2023 Respiratory rate 20.00 /min WedSeptember 19 00:1 1:42 EDT 2023 Body weight 111.60 [lb_av] WedSeptember 18 13:24 :40 EDT 2023 Systolic Blood Pressure 132.00 mm[Hg] WedSeptember 18 09:27:04 EDT 2023 Diastolic Blood Pressure 63.00 mm[Hg] WedSeptember 18 09:27:04 EDT 2023 Heart Rate 64.00 /min [place] September 18 09:27 :04 EDT 2023 Body temperature 98.30 [degF] WedSeptember 18 09:2 7:04 EDT 2023 Respiratory rate 18.00 /min WedSeptember 18 09:2 7:04 EDT 2023 Systolic Blood Pressure 124.00 mm[Hg] [facility] September 17 23:44:50 EDT 2023 Diastolic Blood Pressure 57.00 mm[Hg] WedSeptember 17 23:44:50 EDT 2023 Heart Rate 63.00 /min WedSeptember 17 23:44 :50 EDT 2023 Body temperature 98.50 [degF] WedSeptember 17 23:4 4:50 EDT 2023 Respiratory rate 20.00 /min WedSeptember 17 23:4 4:50 EDT 2023 Body weight 110.40 [lb_av] WedSeptember 17 11:56 :12 EDT 2023 Systolic Blood Pressure 121.00 mm[Hg] WedSeptember 17 08:46:24 EDT 2023 Diastolic Blood Pressure 75.00 mm[Hg] WedSeptember 17 08:46:24 EDT 2023 Heart Rate 73.00 /min WedSeptember 17 08:46 :24 EDT 2023 Body temperature 98.40 [degF] WedSeptember 17 08:4 6:24 EDT 2023 Respiratory rate 18.00 /min WedSeptember 17 08:4 6:24 EDT 2023 Systolic Blood Pressure 133.00 mm[Hg] WedSeptember 16 22:28:01 EDT 2023 Diastolic Blood Pressure 63.00 mm[Hg] WedSeptember 16 22:28:01 EDT 2023 Heart Rate 69.00 /min WedSeptember 16 22:28 :01 EDT 2023 Body temperature 97.30 [degF] WedSeptember 16 22:2 8:01 EDT 2023 Respiratory rate 18.00 /min WedSeptember 16 22:2 8:01 EDT 2023 Body weight 109.80 [lb_av] WedSeptember 16 15:02 :13 EDT 2023 Systolic Blood Pressure 134.00 mm[Hg] WedSeptember 16 08:58:40 EDT 2023 Diastolic Blood Pressure 75.00 mm[Hg] WedSeptember 16 08:58:40 EDT 2023 Heart Rate 67.00 /min WedSeptember 16 08:58 :40 EDT 2023 Body temperature 98.40 [degF] WedSeptember 16 08:5 8:40 EDT 2023 Respiratory rate 18.00 /min WedSeptember 16 08:5 8:40 EDT 2023 Systolic Blood Pressure 122.00 mm[Hg] WedSeptember 15 22:58:53 EDT 2023 Diastolic Blood Pressure 66.00 mm[Hg] WedSeptember 15 22:58:53 EDT 2023 Heart Rate 62.00 /min WedSeptember 15 22:58 :53 EDT 2023 Body temperature 98.50 [degF] WedSeptember 15 22:5 8:53 EDT 2023 Respiratory rate 18.00 /min WedSeptember 15 22:5 8:53 EDT 2023 Body weight 110.60 [lb_av] WedSeptember 15 13:49 :04 EDT 2023 Systolic Blood Pressure 116.00 mm[Hg] WedSeptember 15 10:33:13 EDT 2023 Diastolic Blood Pressure 59.00 mm[Hg] WedSeptember 15 10:33:13 EDT 2023 Heart Rate 71.00 /min WedSeptember 15 10:33 :13 EDT 2023 Body temperature 98.20 [degF] WedSeptember 15 10:3 3:13 EDT 2023 Respiratory rate 18.00 /min WedSeptember 15 10:3 3:13 EDT 2023 Systolic Blood Pressure 127.00 mm[Hg] WedSeptember 15 00:19:16 EDT 2023 Diastolic Blood Pressure 58.00 mm[Hg] WedSeptember 15 00:19:16 EDT 2023 Heart Rate 62.00 /min WedSeptember 15 00:19 :16 EDT 2023 Body temperature 97.00 [degF] WedSeptember 15 00:1 9:16 EDT 2023 Respiratory rate 18.00 /min WedSeptember 15 00:1 9:16 EDT 2023 Body weight 111.80 [lb_av] WedSeptember 14 12:11 :38 EDT 2023 Systolic Blood Pressure 112.00 mm[Hg] WedSeptember 14 09:44:00 EDT 2023 Diastolic Blood Pressure 70.00 mm[Hg] WedSeptember 14 09:44:00 EDT 2023 Heart Rate 70.00 /min WedSeptember 14 09:44 :00 EDT 2023 Body temperature 97.70 [degF] WedSeptember 14 09:4 4:00 EDT 2023 Respiratory rate 18.00 /min WedSeptember 14 09:4 4:00 EDT 2023 Systolic Blood Pressure 127.00 mm[Hg] WedSeptember 14 01:37:54 EDT 2023 Diastolic Blood Pressure 56.00 mm[Hg] WedSeptember 14 01:37:54 EDT 2023 Heart Rate 78.00 /min WedSeptember 14 01:37 :54 EDT 2023 Body temperature 97.80 [degF] WedSeptember 14 01:3 7:54 EDT 2023 Respiratory rate 18.00 /min WedSeptember 14 01:3 7:54 EDT 2023 Body weight 110.00 [lb_av] WedSep 13 13:00 :12 EDT 2023 Body Height 64.00 [in_i] WedSep 13 11:52 :12 EDT 2023 Systolic Blood Pressure 137.00 mm[Hg] WedSep 13 08:51:58 EDT 2023 Diastolic Blood Pressure 63.00 mm[Hg] WedSep 13 08:51:58 EDT 2023 Heart Rate 86.00 /min WedSep 13 08:51 :58 EDT 2023 Body temperature 97.90 [degF] WedSep 13 08:5 1:58 EDT 2023 Respiratory rate 18.00 /min WedSep 13 08:5 1:58 EDT 2023 Systolic Blood Pressure 136.00 mm[Hg] WedSep 12 23:16:55 EDT 2023 Diastolic Blood Pressure 70.00 mm[Hg] WedSep 12 23:16:55 EDT 2023 Heart Rate 73.00 /min WedSep 12 23:16 :55 EDT 2023 Body temperature 97.90 [degF] WedSep 12 23:1 6:55 EDT 2023 Respiratory rate 16.00 /min WedSep 12 23:1 6:55 EDT 2023 Body weight 111.60 [lb_av] WedSep 12 13:15 :14 EDT 2023 Systolic Blood Pressure 106.00 mm[Hg] WedSep 12 09:09:05 EDT 2023 Diastolic Blood Pressure 58.00 mm[Hg] WedSep 12 09:09:05 EDT 2023 Heart Rate 61.00 /min WedSep 12 09:09 :05 EDT 2023 Body temperature 98.10 [degF] [facility] Sep 12 09:0 9:05 EDT 2023 Respiratory rate 18.00 /min [facility] Sep 12 09:0 9:05 EDT 2023 Systolic Blood Pressure 129.00 mm[Hg] [place] Sep 11 23:07:08 EDT 2023 Diastolic Blood Pressure 71.00 mm[Hg] [place] Sep 11 23:07:08 EDT 2023 Heart Rate 60.00 /min [place] Sep 11 23:07 :08 EDT 2023 Body temperature 97.80 [degF] [place] Sep 11 23:0 7:08 EDT 2023 Respiratory rate 18.00 /min [place] Sep 11 23:0 7:08 EDT 2023 Body weight 110.60 [lb_av] [place] Sep 11 12:46 :59 EDT 2023 Systolic Blood Pressure 124.00 mm[Hg] [facility] 10:14:22 EDT 2023 Diastolic Blood Pressure 62.00 mm[Hg] [facility] 10:14:22 EDT 2023 Heart Rate 62.00 /min [facility] 10:14 :22 EDT 2023 Body temperature 98.20 [degF] [facility] 10:1 4:22 EDT 2023 Respiratory rate 18.00 /min [facility] 10:1 4:22 EDT 2023 Systolic Blood Pressure 133.00 mm[Hg] [facility] 22:25:23 EDT 2023 Diastolic Blood Pressure 63.00 mm[Hg] [facility] 22:25:23 EDT 2023 Heart Rate 60.00 /min [facility] 22:25 :23 EDT 2023 Body temperature 98.90 [degF] [facility] Sep 10 22:2 5:23 EDT 2023 Respiratory rate 18.00 /min [facility] 22:2 5:23 EDT 2023 Body weight 110.80 [lb_av] [facility] Sep 10 10:42 :21 EDT 2023 Systolic Blood Pressure 148.00 mm[Hg] [facility] 09:04:16 EDT 2023 Diastolic Blood Pressure 65.00 mm[Hg] [facility] 09:04:16 EDT 2023 Heart Rate 86.00 /min [facility] 09:04 :16 EDT 2023 Body temperature 97.60 [degF] [facility] 09:0 4:16 EDT 2023 Respiratory rate 18.00 /min Sat Sep 10 09:0 4:16 EDT 2023 Systolic Blood Pressure 133.00 mm[Hg] Sat Sep 10 01:34:42 EDT 2023 Diastolic Blood Pressure 67.00 mm[Hg] Sat Sep 10 01:34:42 EDT 2023 Heart Rate 68.00 /min Sat Sep 10 01:34 :42 EDT 2023 Body temperature 98.00 [degF] Sat Sep 10 01:3 4:42 EDT 2023 Respiratory rate 16.00 /min Sat Sep 10 01:3 4:42 EDT 2023 Body weight 109.00 [lb_av] WedSep 09 13:52 :20 EDT 2023 Systolic Blood Pressure 130.00 mm[Hg] WedSep 09 09:35:32 EDT 2023 Diastolic Blood Pressure 76.00 mm[Hg] WedSep 09 09:35:32 EDT 2023 Heart Rate 76.00 /min WedSep 09 09:35 :32 EDT 2023 Body temperature 98.30 [degF] WedSep 09 09:3 5:32 EDT 2023 Respiratory rate 18.00 /min WedSep 09 09:3 5:32 EDT 2023 Systolic Blood Pressure 113.00 mm[Hg] [facility] Sep 08 23:47:15 EDT 2023 Diastolic Blood Pressure 64.00 mm[Hg] [facility] Sep 08 23:47:15 EDT 2023 Heart Rate 66.00 /min [place] Sep 08 23:47 :15 EDT 2023 Body temperature 98.20 [degF] [place] Sep 08 23:4 7:15 EDT 2023 Respiratory rate 18.00 /min [place] Sep 08 23:4 7:15 EDT 2023 Body weight 106.80 [lb_av] [place] Sep 08 13:59 :45 EDT 2023 Systolic Blood Pressure 130.00 mm[Hg] [place] Sep 08 08:33:20 EDT 2023 Diastolic Blood Pressure 77.00 mm[Hg] [place] Sep 08 08:33:20 EDT 2023 Heart Rate 75.00 /min [place] Sep 08 08:33 :20 EDT 2023 Body temperature 98.50 [degF] [place] Sep 08 08:3 3:20 EDT 2023 Respiratory rate 16.00 /min WedSep 08 08:3 3:20 EDT 2023 Systolic Blood Pressure 164.00 mm[Hg] WedSep 08 00:56:26 EDT 2023 Diastolic Blood Pressure 69.00 mm[Hg] WedSep 08 00:56:26 EDT 2023 Heart Rate 76.00 /min WedSep 08 00:56 :26 EDT 2023 Body temperature 98.30 [degF] WedSep 08 00:5 6:26 EDT 2023 Respiratory rate 16.00 /min WedSep 08 00:5 6:26 EDT 2023 Body weight 112.20 [lb_av] WedSep 07 16:19 :44 EDT 2023 Systolic Blood Pressure 175.00 mm[Hg] WedSep 07 09:09:48 EDT 2023 Diastolic Blood Pressure 86.00 mm[Hg] WedSep 07 09:09:48 EDT 2023 Heart Rate 73.00 /min WedSep 07 09:09 :48 EDT 2023 Body temperature 98.20 [degF] WedSep 07 09:0 9:48 EDT 2023 Respiratory rate 18.00 /min WedSep 07 09:0 9:48 EDT 2023 Systolic Blood Pressure 153.00 mm[Hg] WedSep 06 23:12:33 EDT 2023 Diastolic Blood Pressure 68.00 mm[Hg] WedSep 06 23:12:33 EDT 2023 Heart Rate 83.00 /min WedSep 06 23:12 :33 EDT 2023 Body temperature 98.30 [degF] WedSep 06 23:1 2:33 EDT 2023 Respiratory rate 18.00 /min WedSep 06 23:1 2:33 EDT 2023 Body weight 111.00 [lb_av] WedSep 06 12:05 :06 EDT 2023 Systolic Blood Pressure 142.00 mm[Hg] WedSep 06 09:02:32 EDT 2023 Diastolic Blood Pressure 85.00 mm[Hg] WedSep 06 09:02:32 EDT 2023 Heart Rate 75.00 /min WedSep 06 09:02 :32 EDT 2023 Body temperature 98.50 [degF] WedSep 06 09:0 2:32 EDT 2023 Respiratory rate 18.00 /min WedSep 06 09:0 2:32 EDT 2023 Systolic Blood Pressure 156.00 mm[Hg] WedSep 06 01:20:00 EDT 2023 Diastolic Blood Pressure 69.00 mm[Hg] WedSep 06 01:20:00 EDT 2023 Heart Rate 87.00 /min WedSep 06 01:20 :00 EDT 2023 Body temperature 98.20 [degF] WedSep 06 01:2 0:00 EDT 2023 Respiratory rate 20.00 /min WedSep 06 01:2 0:00 EDT 2023 Systolic Blood Pressure 156.00 mm[Hg] WedSep 06 00:35:00 EDT 2023 Diastolic Blood Pressure 69.00 mm[Hg] WedSep 06 00:35:00 EDT 2023 Heart Rate 87.00 /min WedSep 06 00:35 :00 EDT 2023 Pulse Oximetry 97.00 % WedSep 06 00:35 :00 EDT 2023 Body temperature 98.20 [degF] WedSep 06 00:3 5:00 EDT 2023 Respiratory rate 20.00 /min WedSep 06 00:3 5:00 EDT 2023 Reason for Referral
--- OUTSIDE RECORDS SUMMARY | 2024-08-27 12:24 | XMS_ITS | Clinical Summary ---
Author Organization [facility] Address [address] [place] [address] Care Team Providers Care Grounds Maintenance Manager Name Role Phone Luciano Arroyo MD Primary Care Provider + Source Comments [facility],non-owned Affiliates and Associated Physician Practices is amultiple site organization consisting of ambulatory clinics and hospital sitesin [place], [place]. This disclosure is being madepursuant to the Care Everywhere program and may not contain all information available regarding this patient. Last updated 18.[facility] Allergies Active Allergy Reactions Criticality Noted Date Comments Penicillins Itching,Swelling Medium 03/28/2019 Swelling Medications * Be aware that medications may not be up to date on this document. Alwaysverify current medications with the patient. levothyroxine (SYNTHROID) 150 MCG tablet Take 100 mcg by mouth once daily 07/25/2016 Active atorvastatin (Lipitor) 20 MG tablet Take 1 (one) tablet by mouth once daily Active celecoxib (CeleBREX) 200 MG capsule Take 1 (one) capsule by mouth 2 times daily Active fenofibrate (Lofibra) 160 MG tablet Take 1 (one) tablet by mouth once daily Take with largest meal of the day. Active thiamine (Vitamin B-1) 250 MG tablet Take 1 (one) tablet by mouth once daily Active levETIRAcetam CR 24hr (Keppra XR) 500 MG tablet Take 3 (three) tablets by mouth 2 times daily 540 tablet 3 10/21/2023 Active Active Problems Problem Noted Date Diagnosed Date Altered mental status, unspe cified altered mental status type 05/09/2023 Weakness 05/09/2023 Seizure 05/09/2023 Right knee pain 02/21/2021 07/21/2023 Primary osteoarthritis of right knee 01/09/2021 07/21/2023 S/P reverse total shoulder arthroplasty, left 07/21/2023 Primary osteoarthritis, left shoulder 08/29/2020 07/21/2023 S/P reverse total shoulder arthroplasty, right 0 08/29/2020 07/21/2023 Impingement syndrome of right shoulder 9 07/21/2023 Encounters Date Type Department Care Team Description 05/29/2024 Travel from Last 3 Months Immunizations Immunization Administration Dates Next Due INFLUENZA VACCINE, HIGH-DOSE , QUADR. (FLUZONE HIGH-DOSE QUADRIVALENT; 65Y+), 0.7 ML (HD-IIV4) 03/23/2022 INFLUENZA VACCINE, HIGH-DOSE , TRIV. (FLUZONE HIGH-DOSE TRIVALENT; 65Y+) (HD-IIV3) 03/08/2018 Social History Tobacco Use Types Packs/Day Years Used Date Smoking Tobacco: Never Tobacco Cessation:Counseling Given: Not Answered AUDIT-C Answer Date Recorded Q1: How often do you have a drink containing alcohol? Never 05/09/2023 Q2: How many drinks containi ng alcohol do you have on a typical day when you are drinking? Patient does not drink Q3: How often do you have si x or more drinks on one occasion? Never 05/09/2023 Comments Unknown Sex and Gender Information Value Date Recorded Sex Assigned at Not on file Legal Sex Female 5:39 PM AUTHOR'S AGENT Gender Identity Not on file Sexual Orientation Not on file Last Filed Vital Signs Vital Sign Reading Time Taken Comments Blood Pressure 125/73 10/21/2023 10:43 AM CDT Pulse 73 10/21/2023 10:43 AM CDT Temperature 36.4 C (97.6 F) 10/21/2023 10:43 AM CDT Respiratory Rate 18 05/12/2023 8:27 AM AUTHOR'S AGENT Oxygen Saturation 98% 10/21/2023 10:43 AM CDT Inhaled Oxygen Concentration - - Weight 49.9 kg (110 lb) 10/21/2023 10:43 AM CDT Height 165.1 cm (5' 5 ) 10/21/2023 10:43 AM CDT Body Mass Index 18.3 10/21/2023 10:43 AM CDT Plan of Treatment Upcoming Encounters Date Type Department Care Team (Late st Contact Info) Description 01/10/2025 10:30 AM CDT Office Visit [facility] - Neurology [address] [place] [id number] Liss Lindsey, ASSISTANT SITE MANAGER-MAILROOM PERSONNEL [address] [place] [id number] Health Maintenance Due Date Last Done Comments BONE DENSITY TESTING 1940 MEDICARE AWV 12 MONTHS 1940 DTAP/TDAP/TD VACCINES (1 - Tdap) 1957 PNEUMOCOCCAL VACCINE 50+ (1 of 1 - PCV) 1988 ZOSTER VACCINE (1 of 2) 1988 Respiratory Syncytial Virus (RSV) Vaccine Pt: or over 60 yrs (1 - 1-dose 75+ series) 2013 COVID-19 VACCINE ( season) 2024 07/09/2022, 12/18/2021, 04/08/2021, Additional history exists DEPRESSION SCREENING 05/17/2024 INFLUENZA VACCINE (Season Ended) 2025 03/23/2022, 03/08/2018 HEPATITIS B VACCINE Aged Out No longe r eligible based on patient's age to complete this topic HIB VACCINE Aged Out No longer eligi ble based on patient's age to complete this topic HPV VACCINE Aged Out No longer eligi ble based on patient's age to complete this topic MENINGOCOCCAL (Group B) VACCINE SHARED DECISION-MAKING Aged Out No longer eligible based on patient's age to complete this topic MENINGOCOCCAL GROUPS A/C/Y/W VACCINE Aged Out No longer eligible based on patient's age to [place] [address] MEDICARE [facility] Advance Directives * Full Code (Latest Code Status on File) Date Activated Date Inactivated Comments 05/09/2023 1:15 PM 05/12/2023 1:29 PM Care Teams Grounds Maintenance Manager Relationship Specialty Start Date End Date Luciano Arroyo MD [address] [place] [address] [address] [place] [address] PCP - General 09/03/16
--- OUTSIDE RECORDS SUMMARY | 2024-08-27 12:24 | XMS_ITS | Clinical Summary ---
Author Organization [facility] Address [address] [place] [address] Care Team Providers Care Ironing Worker Name Role Phone Luciano Arroyo MD Primary [...] hours as needed for pain 60 tablet 1 Active Additional Information Patient not taking.Reported on [...] 04/17 Impingement syndrome of right shoulder 9 Surgical History Surgery Date Site/Laterality Comments TONSILLECTOMY BACK SURGERY 05/17/1980 - 05/16/1981 laminectomy/spinal fusion Lspine HYSTERECTOMY CHOLECYSTECTOMY FOOT SURGERY great toe x2 Medical History Medical History Date Comments Hypercholesteremia Osteoarthritis Thyroid disease Rheumatoid arthritis (HCC) 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 10/31/2020 s/p right rerverse total shoulder arthroplasty o n 11/22/2019 08/29/2020 Family History Medical History Relation Name Comments Diabetes Father Arthritis Mother Cancer Mother kidney Diabetes Mother Cancer Son liver Relation Name Status Comments Father Mother Son Social History Tobacco Use Types Packs/Day Years Used Date Smoking Tobacco: Never Alcohol Use Standard Drinks/Week Comments Yes 0 (1 standard drink = 0.6 oz pur e alcohol) socially Comments Unknown Sex and Gender Information Value Date Recorded Sex Assigned at Not on file Legal Sex Female 3:42 AM PC TECHNICIAN Gender Identity Not on file Sexual Orientation Not on file 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 Not on file Not on file Not on cristela e Obstetrics History Last Filed Vital Signs Vital Sign Reading Time Taken Comments Blood Pressure 158/76 10/16/2020 7:17 AM CDT Pulse 82 10/16/2020 7:17 AM CDT Temperature 36.7 C (98.1 F) 10/16/2020 7:17 AM CDT Respiratory Rate - - Oxygen Saturation 98% 10/16/2020 7:17 AM CDT Inhaled Oxygen Concentration - - Weight 50.8 kg (112 lb) 05/04/2024 11:13 AM PC TECHNICIAN Height 165.1 cm (5' 5 ) 05/04/2024 11:13 AM PC TECHNICIAN Body Mass Index 18.64 05/04/2024 11:13 AM PC TECHNICIAN Plan of Treatment Health Maintenance Due Date Last Done Comments Depression Screening 1940 Fall Risk Assessment 1938 DTaP/Tdap/Td Vaccine (1 - Tdap) 1949 Hepatitis B Screening 1956 Pneumococcal vaccine 65+ (1 of 2 - PCV) 1957 Zoster Vaccine (1 of 2) 1957 Well Visit 65+ 2003 Influenza Vaccine (Season Ended) 2025 03/08/20 18 [place] [address] [facility]ICARE [facility] MEDICARE [facility] Address: [address] [address] [place] [address] [facility] MEDICARE [facility] Advance Directives For more information, please contact: [phone] Documents on File Type Date Recorded Patient Traveling Operator Expl anation ADVANCE DIRECTIVE 11/09/2019 12:00 AM JESSICA NG WILL ADVANCE DIRECTIVE 11/09/2019 12:00 AM THEODORE R OF FOLDER OPERATOR FINANCIAL/MEDICAL Care Teams Ironing Worker Relationship Specialty Start Date End Date Luciano Arryoo MD [address] [place] [address] PCP - General 10/30/14
[2024-08-27 12:31] VITALS: BP 145/92; PULSE 74; RESP 16; O2SAT 100
[2024-08-27 12:58] VITALS: BP 151/107; PULSE 68; RESP 18; O2SAT 100
[2024-08-27 13:01] VITALS: BP 132/83; PULSE 72; RESP 16; O2SAT 100
[2024-08-27 13:31] VITALS: BP 141/70; PULSE 74; RESP 16; O2SAT 99
[2024-08-27 13:46] VITALS: BP 125/80; PULSE 68; RESP 17; O2SAT 96
--- NOTE | 2024-08-27 14:10 | ED_ITS ---
HPI - General Adult General Chief complaint: Fall Stated complaint: low back pain after fall Time Seen by Provider: 08/27/24 12:12 History of Present Illness HPI narrative: This is an 84-year-old female presenting after a ground level fall. She was trying to leave taoist when the wind blew, closing the door, and unfortunately knocking her backwards onto her right hip. After hitting her hip she struck her head on the ground. She denies use of blood thinners or loss of consciousness, persistent vomiting or weakness to any extremity. She now has pain in her hip.. They will she was able to stand with assistance but then came to the ED for evaluation. She did not lose consciousness. She did not use blood thinners. She is currently complaining of pain to her left hip. Related Data Home Medications ?Medication ?Instructions ?Recorded ?Confirmed ?Last Taken ?Type cetirizine 10 mg tablet (All Day 10 mg PO DAILY PRN Allergy Symptoms 10/29/21 07/19/24 Unknown History Allergy (cetirizine)) thiamine HCl (vitamin B1) 250 mg 250 mg PO DAILY 10/29/21 07/19/24 Unknown History tablet acetaminophen 325 mg capsule 325 mg PO Q6H PRN Pain 09/23/22 07/19/24 Unknown History (Tylenol) calcium carbonate (Calcium 600) 600 mg PO DAILY 10/12/23 07/19/24 Unknown History cholecalciferol (vitamin D3) 10 50 mcg PO DAILY 10/12/23 07/19/24 Unknown History mcg (400 unit) capsule (Vitamin D3) ascorbic acid (vitamin C) 2,000 mg 2,000 mg PO DAILY 07/19/24 07/19/24 Unknown History tablet,extended release baclofen 10 mg tablet 10 mg PO QID PRN 07/19/24 07/19/24 Unknown History mirtazapine 15 mg tablet 15 mg PO QHS 07/19/24 07/19/24 Unknown History Allergies Allergy/AdvReac Type Severity Reaction Status Date / Time Penicillins Allergy Unknown Itching Verified 08/27/24 12:16 mirtazapine AdvReac Intermediate Drowsy Verified 08/27/24 12:16 niacin (From Niaspan AdvReac Mild Dizziness Verified 08/27/24 12:16 Extended-Release) [facility] Past Medical History Medical History C. 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 Bowel obstruction Hypothyroid HTN (hypertension) Surgical History Surgical History History of tonsillectomy Hx of laminectomy (~1980) Fusion Hx of bladder repair surgery (2013) History of bilateral tubal ligation 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) History of left shoulder replacement (10/2020) H/O cataract removal with insertion of prosthetic lens Hx of cholecystectomy History of hysterectomy Family History Family History Father Diabetes mellitus Kidney disease Mother Diabetes mellitus Stomach cancer Brain cancer Sibling Diabetes mellitus Son Carcinoma of colon Liver cancer Daughter Breast cancer Sibling Liver cancer Lung cancer Social History Social History Smoking status: Never smoker Second hand tobacco smoke exposure: No Alcohol intake: never Drinks per week: 1 Alcohol use details: maybe a drink every couple of weeks Substance use: never Substance use type: does not use Do You Feel Safe in your Home?: Yes Lack of Transportation: No Lack of Food: Never True Current Housing: I Have Housing Concerned About Future Housing: No Difficulty Paying Gas/Electric Bills: No Difficulty Paying for Meds: No Currently Unemployed: No Education: High School Diploma/GED Difficulty w/ Childcare or Family Care: No Living arrangements: alone Occupation/Education: retired Gender identity (if verbalized by the patient): Female Sexual Orientation (if Verbalized by the Patient): Straight or Heterosexual Spiritual care concerns: No Agree to blood products: Yes Exam Narrative: APPEARANCE: No apparent distress. Head: atraumatic. EYES: EOMI, NOSE: Atraumatic NECK: Trachea midline, midline tenderness RESPIRATORY: No increased rate of breathing CTAB CARDIOVASCULAR: RRR, no peripheral edema ABDOMINAL: Non-distended soft nontender no guarding rebound MUSCULOSKELETAl: No obvious deformities head to toe trauma exam performed with no areas of tenderness or traumatic injury NEURO: Alert. Moving 4/4 extremities SKIN:: Warm, dry. Normal color PSYCHIATRIC: Normal affect Course Vital Signs Vital signs: Vital Signs Temperature 97.5 F L 08/27/24 12:11 Pulse Rate 69 08/27/24 12:11 Respiratory Rate 18 08/27/24 12:11 Blood Pressure 149/98 H 08/27/24 12:11 Pulse Oximetry 100 08/27/24 12:11 Oxygen Delivery Room Air 08/27/24 12:11 Temperature 97.5 F L 08/27/24 12:11 Pulse Rate 69 08/27/24 12:11 Respiratory Rate 18 08/27/24 12:11 Blood Pressure 149/98 H 08/27/24 12:11 Pulse Oximetry 100 08/27/24 12:11 Oxygen Delivery Room Air 08/27/24 12:11 Medical Decision Making MDM Narrative Medical decision making narrative: -Course: 84-year-old female presenting after a ground level fall. Imaging negative for acute injury. She was able to ambulate without difficulty. Patient be discharged on a course Tylenol. Given return precautions. -DDX includes but is not limited to: Hip fracture, bony injury, soft tissue injury, arthritis Vital Signs Vital Signs: Vital Signs Temperature 97.5 F L 08/27/24 12:11 Pulse Rate 69 08/27/24 12:11 Respiratory Rate 18 08/27/24 12:11 Blood Pressure 149/98 H 08/27/24 12:11 Pulse Oximetry 100 08/27/24 12:11 Oxygen Delivery Room Air 08/27/24 12:11 Temperature 97.5 F L 08/27/24 12:11 Pulse Rate 69 08/27/24 12:11 Respiratory Rate 18 08/27/24 12:11 Blood Pressure 149/98 H 08/27/24 12:11 Pulse Oximetry 100 08/27/24 12:11 Oxygen Delivery Room Air 08/27/24 12:11 Discharge Plan Discharge Clinical Impression: Fall Patient Disposition: Home Condition: Stable Instructions: Antibiotic Form, Fall Prevention for Older Adults (ED) Additional Instructions: You were seen in the emergency department after a fall. Thankfully, you have no broken bones or serious injuries. Please use Tylenol as needed for pain. Return if you develop any new or worsening symptoms such as severe pain or inability to walk. Patient Language: Israeli Prescriptions: No Action calcium carbonate [Calcium 600] 600 mg calcium (1,500 mg) tablet 600 mg PO DAILY acetaminophen [Tylenol] 325 mg capsule 325 mg PO Q6H PRN (Reason: Pain) ascorbic acid (vitamin C) 2,000 mg tablet extended release 2,000 mg PO DAILY baclofen 10 mg tablet 10 mg PO QID PRN mirtazapine 15 mg tablet 15 mg PO QHS thiamine HCl (vitamin B1) 250 mg tablet 250 mg PO DAILY cetirizine [All Day Allergy (cetirizine)] 10 mg tablet 10 mg PO DAILY PRN (Reason: Allergy Symptoms) diphenoxylate-atropine 2.5-0.025 mg tablet 1 tablet PO .q 4 hours PRN (Reason: diarrhea) Qty: 20 0RF cholecalciferol (vitamin D3) [Vitamin D3] 10 mcg (400 unit) capsule 50 mcg PO DAILY tramadol 50 mg tablet 50 mg PO BID PRN (Reason: pain) Qty: 60 1RF levothyroxine 100 mcg tablet 100 mcg PO DAILY Qty: 90 2RF fenofibrate 160 mg tablet See Rx Instructions .ROUTE .COMPLEX Qty: 90 1RF Dose Instruction: TAKE 1 TABLET DAILY Rx Instructions: TAKE 1 TABLET DAILY celecoxib 200 mg capsule See Rx Instructions .ROUTE .COMPLEX Qty: 180 1RF Dose Instruction: TAKE 1 CAPSULE TWICE DAILY Rx Instructions: TAKE 1 CAPSULE TWICE DAILY dicyclomine 10 mg capsule 10 mg PO BID Qty: 60 5RF levetiracetam 500 mg tablet extended release 24 hr 1,500 mg PO . b.i.d. Qty: 540 3RF atorvastatin 20 mg tablet 20 mg PO DAILY Qty: 90 3RF Follow-up/Referrals: Luciano Arroyo MD [Primary Care Provider] -
== END 2024-08-27 14:46 | disposition home or self-care (01) ==
PROVIDERS: Emergency Provider Emergency Medicine; PCP Family Medicine Adolescent Medicine
DX: S09.90XA Unspecified injury of head, initial encounter (principal); S79.912A Unspecified injury of left hip, initial encounter; I10 Essential (primary) hypertension; E03.9 Hypothyroidism, unspecified; Z98.1 Arthrodesis status; Z96.612 Presence of left artificial shoulder joint; Z96.611 Presence of right artificial shoulder joint; Z86.73 Personal history of transient ischemic attack (TIA), and cerebral infarction without residual deficits; Z90.49 Acquired absence of other specified parts of digestive tract; Z90.710 Acquired absence of both cervix and uterus; Z79.899 Other long term (current) drug therapy; M51.369 Other intervertebral disc degeneration, lumbar region without mention of lumbar back pain or lower extremity pain; M48.061 Spinal stenosis, lumbar region without neurogenic claudication; M50.31 Other cervical disc degeneration, high cervical region; M48.02 Spinal stenosis, cervical region; W18.09XA Striking against other object with subsequent fall, initial encounter
CPT/HCPCS: 70450; 72125; 72131; 73502; 99284

== ENCOUNTER 2025-01-18 10:55 | Outpatient (CLI) | payer MEDICARE, BC, SELFPAY ==
--- OUTSIDE RECORDS SUMMARY | 2025-01-18 11:34 | XMS_ITS | Clinical Summary ---
Author Organization [facility] Address [address] [place] [address] Care Team Providers Care Insurance Customer Service Specialist Name Role Phone Luciano Arroyo MD Primary Care Provider + Source Comments [facility],non-owned Affiliates and Associated Physician Practices is amultiple site organization consisting of ambulatory clinics and hospital sitesin [place], [place], [place] and [place]. This disclosure is being madepursuant to the Care Everywhere program and may not contain all information available regarding this patient. Last updated 18.[facility] Allergies Active Allergy Reactions Criticality Noted Date [...] Impingement syndrome of right shoulder 9 07/21/2023 Immunizations Immunization Administration Dates Next Due INFLUENZA [...] on file Legal Sex Female 5:39 PM DAY HABILITATION SUPERVISOR Gender Identity Not on file Sexual Orientation Not on file Last Filed Vital Signs Vital Sign Reading Time Taken Comments Blood Pressure 125/73 10/21/2023 10:43 AM CDT Pulse 73 10/21/2023 10:43 AM CDT Temperature 36.4 C (97.6 F) 10/21/2023 10:43 AM CDT Respiratory Rate 18 05/12/2023 8:27 AM DAY HABILITATION SUPERVISOR Oxygen Saturation 98% 10/21/2023 10:43 AM CDT Inhaled Oxygen Concentration - - Weight 49.9 kg (110 lb) 10/21/2023 10:43 AM CDT Height 165.1 cm (5' 5) 10/21/2023 10:43 AM CDT Body Mass Index 18.3 10/21/2023 10:43 AM CDT Plan of Treatment Health Maintenance Due Date [...] history exists DEPRESSION SCREENING 05/17/2024 INFLUENZA VACCINE (#1) 2025 03/23/2022, 2017 HEPATITIS B VACCINE Aged Out No longe [...] patient's age [place] [address] MEDICARE [facility] Advance Directives * Full Code (Latest Code Status on File) Date Activated Date Inactivated Comments 05/09/2023 1:15 PM 05/12/2023 1:29 PM Care Teams Insurance Customer Service Specialist Relationship Specialty Start Date End Date Luciano Arroyo MD [address] [address] PCP - General 09/03/16
--- OUTSIDE RECORDS SUMMARY | 2025-01-18 11:34 | XMS_ITS | Clinical Summary ---
Author Organization [facility] Address [address] [place] [address] Care Team Providers Care Landscape Architecture Professor Name Role Phone Unavailable Primary Care Provider [...] Td Vaccines ( 1 - Tdap) 1957 Pneumococcal Vaccine: 50+ Ye ars (1 of 1 - PCV) 1988 Zoster Vaccines (1 of 2) 1988 RSV Immunization or 60+ Years (1 - 1-dose 75+ series) 2013 COVID-19 Vaccine ( - 2023-2 5 season) 2025 Meningococcal B Vaccine Aged Out No l onger eligible based on patient's age to complete this topic Meningococcal Vaccine Aged Out No mary kg eligible based on patient's age to complete this topic RSV Immunizations Under 20 Months Aged Out No longer eligible based on patient's age to complete this topic
--- OUTSIDE RECORDS SUMMARY | 2025-01-18 11:34 | XMS_ITS | Encounter Summary ---
Author Organization [facility] Healthcare Address [address] [place] [address] Care Team Providers Care Call Center Agent Name Role Phone Luciano Arroyo MD Primary Care Prov ider Encounter Details Date Type Department Care Team (Late st Contact Info) Description 01/17/2025 Telephone [facility] Medical Group Hand Surgery 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 file Not on file Not on cristela e documented as of this encounter Miscellaneous Notes * Telephone Encounter - Lisa Epstein MA - 01/17/2025 10:53 AM CDT noted * Telephone Encounter - Anthony Cote MA - 01/17/2025 9:05 AM CDT Pt wanted to let CLL she slept all night and is very pleased with the results of the cortisone injections documented in this encounter Plan of Treatment Not on file documented as of this encounter Visit Diagnoses Not on filedocumented in this encounter Care Teams Call Center Agent Relationship Specialty Start Date End Date Luciano Arroyo MD PCP - General 10/30/14 documented as of this encounter
--- OUTSIDE RECORDS SUMMARY | 2025-01-18 11:34 | XMS_ITS | Clinical Summary ---
Author Organization [facility] Address [address] [place] [address] Care Team Providers Care Fly Frame Tender Name Role Phone Luciano Arroyo MD Primary Care Prov ider Allergies Active Allergy Reactions Criticality Noted Date Comments Niacin Unknown 09/06/2023 Penicillins Itching,Swelling Medium 03/28/2019 Swelling Medications SYNTHROID [...] Active Additional Information Patient not taking.Reported on 01/16/2025 HYDROcodone-betito taminophen (NORCO) 5-325 mg per tablet Take 1 tablet by mouth every 6 (six) hours as needed for pain 60 tablet 1 Active Additional Information Patient not taking.Reported on 01/16/2025 levETIRAcetam XR (KEPPRA XR) 500 mg 24 hr tablet Take 1 tablet (500 mg total) by mouth daily 1500 mg BID Active aspirin 81 mg enteric coated tablet Take 1 tablet (81 mg total) by mouth daily Active Hospital, Clinic, or Other Facility Administered Medication Ordered Dose Route Frequency Start Date End Date Status lidocaine (XYLOCAINE) 10 mg/mL (1 %) injection 2 mLIndications:Admini stration of Local Anesthesia 2 mL One-Time Injection 01/16/2025 5 Ended lidocaine (XYLOCAINE) 10 mg/mL (1 %) injection 2 mLIndications:Admini stration of Local Anesthesia 2 mL One-Time Injection 01/16/2025 5 Ended triamcinolone (KENALOG) 40 mg/mL injection 40 mgIndications:Primar y osteoarthritis of right knee,Primary osteoarthritis of left knee 40 mg intra-artic One-Time Injection 01/16/2025 5 Ended triamcinolone (KENALOG) 40 mg/mL injection 40 mgIndications:Primar y osteoarthritis of right knee,Primary osteoarthritis of left knee 40 mg intra-artic One-Time Injection 01/16/2025 5 Ended Active Problems Problem Noted Date Diagnosed Date Right knee pain 02/21/2021 Primary osteoarthritis of right knee 01/09/2021 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 10/31/2020 s/p right rerverse total antoni ulder arthroplasty on 11/22/2019 08/29/2020 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 08/29/2020 OA right shoulder-severe glenohumeral joint 04/17 Impingement syndrome of right shoulder 9 Encounters Date Type Department Care Team Description 01/17/2025 Telephone [facility] Medical [facility] Hand Surgery [address] [place] [address] [address] [place] [address] Jc Dai MD 01/16/2025 1:45 PM CDT Office Visit [facility] Medicine [address] [place] [address] [address] [place] [address] Jc Dai MD Primary osteoarthritis of right knee (Primary Dx); Primary osteoarthritis of left knee from Last 3 Months Surgical History Surgery Date Site/Laterality Comments TONSILLECTOMY [...] on file Legal Sex Female 3:42 AM OB SCRUB TECH Gender Identity Not on file Sexual Orientation Not on file Occupation Industry 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 End Date 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 Not on file Not on file [...] - - Weight 50.8 kg (112 lb) 01/16/2025 1:56 PM CDT Height 165.1 cm (5' 5) 01/16/2025 1:56 PM CDT Body Mass Index 18.64 01/16/2025 1:56 PM CDT Plan of Treatment Health Maintenance Due Date Last Done Comments Depression Screening 1938 Fall Risk Assessment 1938 Osteoporosis Screening-Bone Density Scan 1938 DTaP/Tdap/Td Vaccine (1 - Tdap) 1949 Hepatitis B Screening 1956 Pneumococcal vaccine 65+ (1 of 2 - PCV) 1957 Zoster Vaccine (1 of 2) 1957 Well Visit 65+ 2003 Influenza Vaccine (#1) 2025 03/08/2018 Procedures Procedure Name Priority Date/Time Associated Diagnosis Comments [place] ARTHROCENTESIS ASPIR&/INJ MAJOR JT/BURSA W/O US Routine 01/16/2025 1:45 PM CDT Primary osteoarthritis of right knee Primary osteoarthritis of left knee from Last 3 Months Results * [place] ARTHROCENTESIS ASPIR&/INJ MAJOR JT/BURSA W/O US (01/16/2025 1:45 PM CDT) Narrative Jc Dai MD - 01/16/2025 1:45 PM CDT Jc Dai MD 01/16/2025 4:47 PM Large Joint (Hip, Knee, Shoulder) Injection: bilateral knee Performed by: Jc Dai MD Authorized by: Jc Dai MD Large Joint Injection/Aspiration: Consent Given by: Patient Written consent obtained: Yes Supporting Documentation: Indications: Pain Procedure Details: Location: Knee Site: Bilateral knee Prep: patient was prepped using a clean technique (The skin was anesthetized with ethyl chloride spray prior to the injections.) Needle Size: 25 G Medications Right Large Joint Injection: 2 mL lidocaine 10 mg/mL (1 %); 40 mg triamcinolone 40 mg/mL Medications Left Large Joint Injection: 2 mL lidocaine 10 mg/mL (1 %); 40 mg triamcinolone 40 mg/mL Patient tolerance: Patient tolerated the procedure well with no immediate complications Jc Dai MD IN CLINIC/BEDSIDE ORDERABL ES Final Result from Last 3 Months Insurance MEDICARE [facility] MEDICARE FORMERLY [facility] [place] [address] MEDICARE [facility] Advance Directives For more information, please contact: [phone] Documents on File Type Date Recorded Patient Translator/Interpreter Expl anation ADVANCE DIRECTIVE 11/09/2019 12:00 AM JESSICA NG WILL ADVANCE DIRECTIVE 11/09/2019 12:00 AM THEODORE Hagen OF [employer]/MEDICAL Care Teams Fly Frame Tender Relationship Specialty Start Date End Date Luciano Arroyo MD PCP - General 10/30/14
== END 2025-01-18 10:56 | disposition home or self-care (01) ==
LOC: ANHLAB 10:57
PROVIDERS: PCP Family Medicine; Visit Provider Psychiatry & Neurology Neurology
DX: G40.909 Epilepsy, unspecified, not intractable, without status epilepticus (principal)
CPT/HCPCS: 80177

== ENCOUNTER 2025-02-01 11:53 | Outpatient (CLI) | payer MEDICARE, BC, SELFPAY ==
--- NOTE | ~2025-02-01 | MM_ITS ---
EXAMINATION: MM screening leah BI w charlene HISTORY: Screening TECHNIQUE: Craniocaudal and mediolateral oblique 3-D tomosynthesis images were obtained and synthetic 2-D images were generated. CAD analysis was submitted and interpreted. COMPARISON: 10/26/2023 BREAST PARENCHYMAL COMPOSITION: There are scattered areas of fibroglandular density. FINDINGS: There is no evidence of suspicious mass, calcification, or architectural distortion to suggest malignancy. There has been no suspicious interval change. IMPRESSION: 1. No mammographic evidence of malignancy. Recommend routine screening mammography in one year. BI-RADS Category 2: Benign finding(s) Reviewed, dictated and finalized at location Q. IMPRESSION: 1. No mammographic evidence of malignancy. Recommend routine screening mammogra phy in one year. BI-RADS Category 2: Benign finding(s)
--- OUTSIDE RECORDS SUMMARY | 2025-02-01 12:04 | XMS_ITS | Clinical Summary ---
Author Organization [facility]] [facility] Address [address] [place] [address] Care Team Providers Care Information Security Architect Name Role Phone Luciano Arroyo MD Primary [...] Type Department Care Team Description 01/17/2025 Telephone [facility] Medical [facility] Hand Surgery [address] [place] [address] [address] [place] [address] Jc Dai MD 01/16/2025 1:45 PM CDT Office Visit [facility] [address] [place] [address] [address] [place] [address] Jc Dai MD Primary osteoarthritis of right [...] on file Legal Sex Female 3:42 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 Gender Identity Not on file Sexual Orientation Not on file 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 Industry 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 End 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 Documents on File Type Date Recorded Patient Pediatric Neuropsychologist Expl anation ADVANCE DIRECTIVE 11/09/2019 12:00 AM JESSICA NG WILL ADVANCE DIRECTIVE 11/09/2019 12:00 AM THEODORE Hagen OF [employer]STRUCTION TE[employer] FINANCIAL/MEDICAL Care Teams Information Security Architect Relationship Specialty Start Date End Date Luciano Arroyo MD PCP - General 10/30/14
--- OUTSIDE RECORDS SUMMARY | 2025-02-01 12:04 | XMS_ITS | Clinical Summary ---
Author Organization [facility] [employer] Address [address] [place] [address] Care Team Providers Care Operations And Maintenance Manager Name Role Phone Luciano Arroyo MD Primary Care Provider + Source Comments [facility] [employer],non-owned Affiliates and Associated Physician Practices is amultiple site organization consisting of ambulatory clinics and hospital sitesin [place], [place], [place] and [place]. This disclosure is being madepursuant to the Care Everywhere program and may not contain all information available regarding this patient. Last updated 18.[facility] [employer] Allergies Active Allergy Reactions Criticality Noted Date [...] on file Legal Sex Female 5:39 PM ELECTRICITY TRADER Gender Identity Not on file Sexual Orientation Not on file Last Filed Vital Signs Vital Sign Reading Time Taken Comments Blood Pressure 125/73 10/21/2023 10:43 AM CDT Pulse 73 10/21/2023 10:43 AM CDT Temperature 36.4 C (97.6 F) 10/21/2023 10:43 AM CDT Respiratory Rate 18 05/12/2023 8:27 AM ELECTRICITY TRADER Oxygen Saturation 98% 10/21/2023 10:43 AM CDT [...] yrs (1 - 1-dose 75+ series) 2013 DEPRESSION SCREENING 05/17/2024 COVID-19 VACCINE (2024- season) 2025 07/09/2022, 12/18/2021, 04/08/2021, Additional history exists INFLUENZA VACCINE (#1) 2025 03/23/2022, 2017 HEPATITIS [...] patient's age to complete [place] [address] MEDICARE [facility] Advance Directives * Full Code (Latest Code Status on File) Date Activated Date Inactivated Comments 05/09/2023 1:15 PM 05/12/2023 1:29 PM Care Teams Operations And Maintenance Manager Relationship Specialty Start Date End Date Luciano Arroyo MD [address] [address] PCP - General 09/03/16
--- OUTSIDE RECORDS SUMMARY | 2025-02-01 12:04 | XMS_ITS | Clinical Summary ---
Author Organization [facility] Address [address] [place] [address] Care Team Providers Care Dedicated Truck Driver Name Role Phone Unavailable Primary Care Provider [...]
== END 2025-02-01 11:54 | disposition home or self-care (01) ==
LOC: CHSIMG 11:55
PROVIDERS: PCP Family Medicine; Visit Provider Obstetrics & Gynecology Gynecology
DX: Z12.31 Encounter for screening mammogram for malignant neoplasm of breast (principal)
CPT/HCPCS: 77063; 77067